=== PATIENT | female | born 1995 | race Two or more races ===

== ENCOUNTER 2020-11-01 09:59 | Outpatient (REF) | payer OTHER, SELFPAY ==
[2020-11-01 11:42] LABS: Hematocrit 31.6 % (37-47); Hemoglobin 8.6 g/dl (12.0-16.0)
[2020-11-01 11:47] LABS: D Dimer < 200 NG/ML
[2020-11-01 12:16] LABS: Ferritin 1 ng/mL (10-122); TSH reflex Free T4 15.27 uIU/mL (0.32-4.0)
[2020-11-01 12:22] LABS: B Type Natriuretic Peptide < 10 pg/mL (<100); Iron 19 mcg/dL (30-160); Percent Iron Saturation 5 % (15-50); Total Iron Binding Capacity 411 mcg/dL (228-428); Unsaturated Iron Binding 392 ug/dL
[2020-11-01 12:52] LABS: Vitamin B12 475 pg/mL (200-900)
[2020-11-01 13:00] LABS: Free T4 (Free Thyroxine) 0.65 ng/dL (0.71-1.85)
== END 2020-11-01 10:00 | disposition home or self-care (01) ==
LOC: HO.HMGCLDS 09:59
PROVIDERS: PCP Internal Medicine; Visit Provider Nurse Practitioner Family
DX: D50.9 Iron deficiency anemia, unspecified (principal); D64.9 Anemia, unspecified; R22.43 Localized swelling, mass and lump, lower limb, bilateral
CPT/HCPCS: 36415; 82607; 82728; 82746; 83540; 83880; 84439; 84443; 85014; 85018; 85379

== ENCOUNTER → 2020-12-09 13:35 | Outpatient (BNV) | payer OTHER, SELFPAY | PROVIDERS: PCP Internal Medicine; Visit Provider Internal Medicine | DX: D50.0 Iron deficiency anemia secondary to blood loss (chronic) (principal); N92.0 Excessive and frequent menstruation with regular cycle | CPT/HCPCS: 99203; 99213; 99214 ==

== ENCOUNTER 2020-12-27 08:04 | Outpatient (REF) | payer OTHER, SELFPAY | END 2020-12-27 08:05 | disposition home or self-care (01) | LOC: HO.MDS 08:04 | PROVIDERS: PCP Internal Medicine; Visit Provider Internal Medicine | DX: D50.9 Iron deficiency anemia, unspecified (principal) | CPT/HCPCS: 96365; 96366; J1200; J1750; Q0163 ==

== ENCOUNTER 2021-02-11 12:16 | Outpatient (REF) | payer OTHER, SELFPAY ==
[2021-02-11 14:07] LABS: Alanine Aminotransferase 32 U/L (0-31); Albumin Level 4.4 g/dL (3.5-5.0); Alkaline Phosphatase 73 U/L (39-117); Anion Gap 13 (12-20); Aspartate Amino Transferase 25 U/L (5-31); Bilirubin Total 0.2 mg/dL (0.0-1.0); Blood Urea Nitrogen 9 mg/dL (9-16); Calcium 9.8 mg/dL (8.4-10.2); Carbon Dioxide 25 mmol/L (22-29); Chloride 105 mmol/L (96-108); Estimated Glomerular Filt Rate > 60; Glucose Random 106 mg/dL (60-115); Potassium 4.2 mmol/L (3.3-5.1); Sodium 139 mmol/L (135-145); Total Protein 7.7 g/dL (6.5-8.0)
[2021-02-11 15:01] LABS: Free T4 (Free Thyroxine) 0.92 ng/dL (0.71-1.85)
== END 2021-02-11 12:17 | disposition home or self-care (01) ==
LOC: HO.HMGCLDS 12:16
PROVIDERS: PCP Internal Medicine; Visit Provider Internal Medicine
DX: E03.8 Other specified hypothyroidism (principal); E66.01 Morbid (severe) obesity due to excess calories; I10 Essential (primary) hypertension
CPT/HCPCS: 36415; 80053; 84439; 84443

== ENCOUNTER 2021-09-02 10:46 | Outpatient (REF) | payer OTHER, SELFPAY ==
[2021-09-02 11:39] LABS: MANUAL DIFF FLAG NO
[2021-09-02 11:53] LABS: Basophils Percent Auto 0.4 % (0-2); Eosinophils Absolute Auto 0.2 X10*3/uL (0.0-0.4); Eosinophils Percent Auto 2.2 % (0-4); Hematocrit 38.4 % (37.0-47.0); Hemoglobin 11.3 g/dl (12.0-16.0); Imm Gran Abs Auto 0.03 X10*3/uL (0.00-0.03); Imm Gran Pct Auto 0.4 % (0.0-0.4); Lymphocytes Absolute Auto 1.5 X10*3/uL (1.2-4.9); Lymphocytes Percent Auto 22.3 % (20-40); Mean Corpuscular HGB Conc 29.4 g/dl (31.0-35.0); Mean Corpuscular Hemoglobin 22.9 pg (27.0-33.0); Mean Corpuscular Volume 77.7 fL (80.0-98.0); Mean Platelet Volume 9.9 fL (9.4-12.3); Monocytes Absolute Auto 0.5 X10*3/uL (0.1-1.2); Monocytes Percent Auto 7.1 % (2-11); Neutrophils Absolute Auto 4.5 x10*3/uL (2.0-8.3); Neutrophils Percent Auto 67.6 % (45-73); Platelet Count 346 X10*3/uL (160-400); Red Blood Count 4.94 X10*6/uL (4.20-5.50); Red Cell Distribution Width 14.5 % (11.0-16.0); White Blood Count 6.7 X10*3/uL (4.8-10.8)
[2021-09-02 12:36] LABS: Alanine Aminotransferase 31 U/L (0-31); Albumin Level 4.2 g/dL (3.5-5.0); Alkaline Phosphatase 74 U/L (39-117); Anion Gap 13 (12-20); Aspartate Amino Transferase 27 U/L (5-31); Bilirubin Total 0.5 mg/dL (0.0-1.0); Blood Urea Nitrogen 9 mg/dL (9-16); Calcium 9.7 mg/dL (8.4-10.2); Carbon Dioxide 26 mmol/L (22-29); Chloride 102 mmol/L (96-108); Estimated Glomerular Filt Rate > 60; Glucose Random 105 mg/dL (60-115); Potassium 4.2 mmol/L (3.3-5.1); Sodium 137 mmol/L (135-145); Total Protein 7.5 g/dL (6.5-8.0)
[2021-09-02 12:59] LABS: Ferritin 16 ng/mL (10-122); TSH reflex Free T4 19.18 uIU/mL (0.32-4.0)
[2021-09-02 13:33] LABS: Free T4 (Free Thyroxine) 0.67 ng/dL (0.71-1.85)
[2021-09-03 09:21] LABS: Thyroglobulin Antibodies <1 IU/mL (< or = 1)
== END 2021-09-02 10:47 | disposition home or self-care (01) ==
LOC: HO.HMGCLDS 10:46
PROVIDERS: PCP Internal Medicine; Visit Provider Internal Medicine
DX: I10 Essential (primary) hypertension (principal); D50.9 Iron deficiency anemia, unspecified; E03.8 Other specified hypothyroidism; E66.01 Morbid (severe) obesity due to excess calories; F33.9 Major depressive disorder, recurrent, unspecified
CPT/HCPCS: 36415; 80053; 82728; 84439; 84443; 85025; 86800

== ENCOUNTER → 2021-10-22 09:51 | Outpatient (BNVA) | payer OTHER, SELFPAY | PROVIDERS: PCP Internal Medicine; Referring Provider Internal Medicine; Visit Provider Physician Assistant | DX: E66.01 Morbid (severe) obesity due to excess calories (principal); E03.9 Hypothyroidism, unspecified; I10 Essential (primary) hypertension; Z68.43 Body mass index [BMI] 50.0-59.9, adult | CPT/HCPCS: 99202 ==

== ENCOUNTER → 2021-10-23 08:41 | Outpatient (BNVA) | payer OTHER, SELFPAY | PROVIDERS: PCP Internal Medicine; Visit Provider Counselor Mental Health | DX: Z13.89 Encounter for screening for other disorder (principal) ==

== ENCOUNTER → 2021-11-18 09:00 | Outpatient (BNVA) | payer OTHER, SELFPAY | PROVIDERS: PCP Internal Medicine; Visit Provider Counselor Mental Health | DX: F50.81 Binge eating disorder (principal); E66.01 Morbid (severe) obesity due to excess calories | CPT/HCPCS: 90791 ==

== ENCOUNTER 2022-09-29 11:25 | Outpatient (REF) | payer OTHER, SELFPAY ==
[2022-09-29 14:12] LABS: MANUAL DIFF FLAG NO
[2022-09-29 14:22] LABS: Basophils Percent Auto 0.5 % (0-2); Eosinophils Absolute Auto 0.2 X10*3/uL (0.0-0.4); Hematocrit 33.8 % (37.0-47.0); Hemoglobin 9.2 g/dl (12.0-16.0); Imm Gran Abs Auto 0.03 X10*3/uL (0.00-0.03); Imm Gran Pct Auto 0.4 % (0.0-0.4); Lymphocytes Percent Auto 27.2 % (20-40); Mean Corpuscular HGB Conc 27.2 g/dl (31.0-35.0); Mean Corpuscular Hemoglobin 18.7 pg (27.0-33.0); Mean Corpuscular Volume 68.8 fL (80.0-98.0); Mean Platelet Volume 10.1 fL (9.4-12.3); Monocytes Absolute Auto 0.4 X10*3/uL (0.1-1.2); Monocytes Percent Auto 5.7 % (2-11); Neutrophils Absolute Auto 4.7 x10*3/uL (2.0-8.3); Neutrophils Percent Auto 64.2 % (45-73); Platelet Count 531 X10*3/uL (160-400); Red Blood Count 4.91 X10*6/uL (4.20-5.50); Red Cell Distribution Width 17.1 % (11.0-16.0); White Blood Count 7.4 X10*3/uL (4.8-10.8)
[2022-09-29 15:02] LABS: Estimated Average Glucose 123 mg/dL; Hemoglobin A1C 105.5181 umol/L; Hemoglobin A1c % 5.9 %
[2022-09-29 16:19] LABS: Alanine Aminotransferase 29 U/L (0-31); Albumin Level 4.4 g/dL (3.5-5.0); Alkaline Phosphatase 81 U/L (39-117); Anion Gap 11 (12-20); Aspartate Amino Transferase 27 U/L (5-31); Bilirubin Total 0.5 mg/dL (0.0-1.0); Blood Urea Nitrogen 9 mg/dL (9-16); Calcium 9.4 mg/dL (8.4-10.2); Carbon Dioxide 27 mmol/L (22-29); Chloride 106 mmol/L (96-108); Estimated Glomerular Filt Rate > 60; Glucose Random 83 mg/dL (60-115); Sodium 140 mmol/L (135-145); Total Protein 7.5 g/dL (6.5-8.0)
[2022-09-29 16:35] LABS: TSH reflex Free T4 18.95 uIU/mL (0.32-4.0)
[2022-10-01 03:29] LABS: LDL Cholesterol Direct 115 mg/dL (<100)
== END 2022-09-29 11:26 | disposition home or self-care (01) ==
LOC: HO.HMGCLDS 11:25
PROVIDERS: PCP Internal Medicine; Visit Provider Internal Medicine
DX: O24.419 Gestational diabetes mellitus in pregnancy, unspecified control (principal); D50.9 Iron deficiency anemia, unspecified; E03.8 Other specified hypothyroidism; E66.01 Morbid (severe) obesity due to excess calories; F50.81 Binge eating disorder; G47.9 Sleep disorder, unspecified; I10 Essential (primary) hypertension
CPT/HCPCS: 36415; 80053; 83036; 83721; 84439; 84443; 85025

== ENCOUNTER → 2022-11-03 09:43 | Outpatient (BNVA) | payer OTHER, SELFPAY | PROVIDERS: PCP Internal Medicine; Visit Provider Physician Assistant ==

== ENCOUNTER 2022-11-11 08:58 | Outpatient (REF) | payer OTHER, SELFPAY ==
[2022-11-11 12:30] LABS: TSH reflex Free T4 0.29 uIU/mL (0.32-4.0)
[2022-11-11 13:02] LABS: Free T4 (Free Thyroxine) 1.39 ng/dL (0.71-1.85)
== END 2022-11-11 08:59 | disposition home or self-care (01) ==
LOC: HO.HMGCLDS 08:58
PROVIDERS: PCP Internal Medicine; Visit Provider Internal Medicine
DX: E03.9 Hypothyroidism, unspecified (principal)
CPT/HCPCS: 36415; 84439; 84443

== ENCOUNTER 2022-12-02 14:27 | Outpatient (REF) | payer OTHER, SELFPAY | END 2022-12-02 14:28 | disposition home or self-care (01) | LOC: HO.MDS 14:27 | PROVIDERS: Visit Provider Internal Medicine | DX: D50.9 Iron deficiency anemia, unspecified (principal) | CPT/HCPCS: 96365; J1756 ==

== ENCOUNTER 2022-12-10 14:31 | Outpatient (REF) | payer OTHER, SELFPAY | END 2022-12-10 14:32 | disposition home or self-care (01) | LOC: HO.MDS 14:31 | PROVIDERS: Visit Provider Internal Medicine | DX: D50.9 Iron deficiency anemia, unspecified (principal) | CPT/HCPCS: 96365; J1756 ==

== ENCOUNTER 2022-12-17 14:52 | Outpatient (REF) | payer OTHER, SELFPAY | END 2022-12-17 14:53 | disposition home or self-care (01) | LOC: HO.MDS 14:52 | PROVIDERS: Visit Provider Internal Medicine | DX: D50.9 Iron deficiency anemia, unspecified (principal) | CPT/HCPCS: 96365; J1756 ==

== ENCOUNTER 2022-12-24 14:58 | Outpatient (REF) | payer OTHER, SELFPAY | END 2022-12-24 14:59 | disposition home or self-care (01) | LOC: HO.MDS 14:58 | PROVIDERS: Visit Provider Internal Medicine | DX: D50.9 Iron deficiency anemia, unspecified (principal) | CPT/HCPCS: 96365; J1756 ==

== ENCOUNTER 2022-12-31 14:24 | Outpatient (REF) | payer OTHER, SELFPAY | END 2022-12-31 14:25 | disposition home or self-care (01) | LOC: HO.MDS 14:24 | PROVIDERS: Visit Provider Internal Medicine | DX: D50.9 Iron deficiency anemia, unspecified (principal) | CPT/HCPCS: 96365; J1756 ==

== ENCOUNTER 2023-01-26 12:54 | Outpatient (AMB) | payer OTHER, SELFPAY ==
--- NOTE | 2023-01-26 12:57 | MHC.PC.OV ---
Vital Signs 01/26/23 13:02 Height 5 ft 2 in Weight 269 lb 8 oz BMI 49.3 BP 122/72 Blood Pressure Location Lt brachial Position Sitting Pulse 117 H Pulse Source Pulse Oximeter Pulse Oximetry (%) 98 Oxygen Delivery Method Room Air Intake Visit Reasons: weight check Allergies oxycodone [OXYCODONE] Allergy (Intermediate, Verified 01/26/23 13:03) RASH, hives Medication List - Last Reconciled 01/26/23 by Obdulia Dewtit MD blood pressure kit-extra large As directed cholestyramine (with sugar) 4 gram 4 grams PO DAILY 30 days ferrous sulfate 325 mg PO BID 90 days hydroxyzine HCl 25 mg PO BEDTIME 90 days levothyroxine 175 mcg PO DAILY metoprolol succinate ER 25 mg PO DAILY 90 days omeprazole 20 mg PO DAILY phentermine 37.5 mg PO DAILY 30 days Tobacco use date assessed: 01/26/23 Dental Screening Dental Screen Date: 01/26/23 Did you have a dental visit in the last 12 months?: Yes Did you have a dental problem in the last 6 months where you did not have access to dental care?: No Was dental information given to patient?: No HPI weight check HPI Details Patient is 27-year-old female came in today for her weight loss appointment She is taking phentermine 37.5 mg, patient is tolerating medication no side effects Her weight on last visit 4 weeks ago was And it is 280 lb with BMI of 51.2 It is now 269 lb with BMI of 49.3 Patient will return in 4 weeks for follow-up appointment to [facility] Medical History Hospital discharge follow-up Iron deficiency anemia Low hemoglobin Pelvic pain Surgical History Hx laparoscopic cholecystectomy Hx of section Family History Father Mental health disorder Mother Asthma Mental health disorder Maternal Grandmother Breast cancer Family/Other Colon cancer Brother Asthma Social History Household Members: None Housing: Apartment Alcohol intake: current Alcohol intake frequency: a few times a month Patient Tobacco Use Status: Never used Tobacco e-Cigarette/Vaping Use: Never Used service: No Current occupational status: unemployed Cognitive needs: No Hearing needs: No Vision needs: Yes Questionnaire PHQ-9 Over the last 2 weeks, how often have you been bothered by any of the following problems? 1. Little interest or pleasure in doing things: several days 2. Feeling down, depressed, or hopeless: not at all 3. Trouble falling or staying asleep, or sleeping too much: more than half the days 4. Feeling tired or having little energy: several days 5. Poor appetite or overeating: several days 6. Feeling bad about yourself - or that you are a failure or have let yourself or your family down: not at all 7. Trouble concentrating on things, such as reading the newspaper or watching television: more than half the days 8. Moving or speaking so slowly that other people could have noticed. Or the opposite - being so fidgety or restless that you have been moving around a lot more than usual: not at all 9. Thoughts that you would be better off or of hurting yourself in some way: not at all Total score: 7 Depression Screening Interpretation: Negative 14069 - PHQ-9 Billing: Yes Source: Developed by Drs. Christiano Fairbanks, Veronica Chow, Heraclio Palencia and colleagues, with an educational onel from [email or web address]. Thrive Questionnaire Date Thrive assessed: 01/26/23 I am a: Patient What is your living situation today?: I have a steady place to live Within the past 12 months, did the food you bought not last and you didn't have the money to get more?: Never true Within the past 12 months, did you worry whether your food would run out before you got money to buy more?: Never true Do you have trouble paying for medicines?: No Do you have trouble getting transportation to medical appointments?: No Do you have trouble paying your heating and electricity bill?: No Do you have trouble taking care of your child, family member or friend?: No Do you have trouble with day-to-day activities such as bathing, preparing meals, shopping, managing finances, etc.?: No Are you currently unemployed and looking for a job?: Yes Are you interested in more education?: Yes AUDIT C Alcohol Use Questionnaire (AUDIT-C) 1. How often do you have a drink containing alcohol?: Never 3. How often do you have six or more drinks on one occasion?: Never Total Score: 0 Score Reviewed/Action Taken: Yes DG-7 AMB Questionnaire DG-7 Date DG - 7 assessed: 01/26/23 Feeling nervous, anxious, or on edge: 1 = Several days Not being able to stop or control worryin = Several days Worrying too much about different things: 0 = Not at all Trouble relaxin = Several days Being so restless that it is hard to sit still: 0 = Not at all Becoming easily annoyed or irritable: 0 = Not at all Feeling afraid as if something awful might happen: 0 = Not at all Total DG-7 score (0-4 normal; 5-9 mild; 10-14 moderate; 15-21 severe): 3 Source: Developed by Drs. Christiano Fairbanks, Veronica Chow, Heraclio Palencia and colleagues, with an educational onel from [email or web address]. DG-7 Assessment Billing DG-7 Assessment Tool: DG-7 Assessment 57407 Review of Systems Const Denies chills and Denies fever(s) ENT Denies epistaxis and Denies nasal discharge Card Denies chest pain Resp Denies chest congestion, Denies cough and Denies hemoptysis GI Denies diarrhea and Denies nausea Skin/Breast Denies rash Neuro Reports no additional complaints Psych Reports no additional complaints Endo Reports no additional complaints Physical exam (Primary Care) Vital Signs: Last Vital Signs Pulse 117 H 01/26/23 13:02 BP 122/72 01/26/23 13:02 Pulse Ox 98 01/26/23 13:02 Oxygen Delivery Method Room Air 01/26/23 13:02 BMI result Body Mass Index 49.3 Tobacco/Smoking Status: Tobacco use Status Tobacco use date assessed 01/26/23 01/26/23 13:03 Patient Tobacco Use Status Never used Tobacco 01/26/23 12:58 e-Cigarette/Vaping Use Never Used 01/26/23 12:58 PHQ-9: PHQ-9 Score PHQ-9: Total score 7 01/26/23 13:22 Depression Screening Interpretation: Negative Thrive Assessment: Date of Thrive Assessment Date Thrive assessed 01/26/23 01/26/23 13:22 Const General: cooperative, comfortable and no acute distress Orientation/consciousness: patient oriented x3 HENMT Head: Yes normocephalic Eyes General: appearance normal, both eyes and all related structures Neck Neck: Yes supple Resp Effort & Inspection: normal respiratory effort, no cough and no stridor Cardio Rhythm: regular rhythm Heart sounds: S1 normal heart sound present and S2 normal heart sound present Skin General skin exam: turgor normal Neuro General: patient oriented x3, tone normal and moves all extremities Extrem Right lower extremity: no edema Left lower extremity: no edema Assessment and Plan Assessment & Plan (1) Morbid obesity due to excess calories: Code(s): E66.01 - Morbid (severe) obesity due to excess calories Plan Patient is 27-year-old female came in today for her weight loss appointment She is taking phentermine 37.5 mg, patient is tolerating medication no side effects Her weight on last visit 4 weeks ago was And it is 280 lb with BMI of 51.2 It is now 269 lb with BMI of 49.3 Patient will return in 4 weeks for follow-up appointment to Medications: Refilled phentermine must administer 30 minutes before or 1-2 hours after breakfast 37.5 mg PO DAILY 30 caps 0RF 30 days Coding Level of Care Code Est Pt Level 3 (81561) Diagnoses Morbid obesity due to excess calories E66.01 Additional Codes DG-7 Assessment Billing - DG-7 Assessment Tool: DG-7 Assessment 41377 ([id number])
[2023-01-26 13:02] VITALS: BP 122/72; PULSE 117; O2SAT 98; BMI 49.3
== END 2023-01-26 14:01 | disposition home or self-care (01) ==
PROVIDERS: PCP Internal Medicine; Visit Provider Internal Medicine
DX: E66.01 Morbid (severe) obesity due to excess calories (principal); Z68.42 Body mass index [BMI] 45.0-49.9, adult
CPT/HCPCS: 99213

== ENCOUNTER 2023-02-12 12:55 | Outpatient (AMB) | payer OTHER, SELFPAY ==
--- NOTE | 2023-02-12 13:00 | MHC.PC.OV ---
Vital Signs 02/12/23 13:01 Height 5 ft 2 in Weight 267 lb BMI 48.8 BP 104/56 L Blood Pressure Location Rt brachial Position Sitting Pulse 92 Pulse Source Pulse Oximeter Pulse Oximetry (%) 98 Oxygen Delivery Method Room Air Intake Visit Reasons: ED Follow UP ~ Allergic Reaction/ Intake Note: Pt is here today for ER follow up visit.Pt states that her BP medication is causing dizziness and headaches. Allergies oxycodone [OXYCODONE] Allergy (Intermediate, Verified 02/12/23 13:02) RASH, hives Medication List - Last Reconciled 02/12/23 by Obdulia Dewitt MD blood pressure kit-extra large As directed cholestyramine (with sugar) 4 gram 4 grams PO DAILY 30 days ferrous sulfate 325 mg PO BID 90 days hydroxyzine HCl 25 mg PO BEDTIME 90 days levothyroxine 175 mcg PO DAILY metoprolol succinate ER 25 mg PO DAILY 90 days omeprazole 20 mg PO DAILY phentermine 37.5 mg PO DAILY 30 days Tobacco use date assessed: 01/26/23 HPI ED Follow UP ~ Allergic Reaction/ HPI Details Patient is 27-year-old female came in today to have a follow-up after having an allergic reaction and seen in emergency room on 02/05/[address] [facility] eating breakfast when she started having difficulty swallowing patient called EMS and came to emergency room EMS gave patient EpiPen 2 times and 50 mg of Benadryl along with 4 mg of Zofran while transferring her to emergency room On arrival to emergency room patient's physical exam was unremarkable she was hemodynamically stable, her symptoms did not seem to be and high lactic in nature After evaluation patient was discharged home with a script of EpiPen p.r.n. She is back to her baseline and offer no new complaints today She is also due for labs Patient has hypothyroidism knees was yellow in November it is time to repeated again She is also due CBC and metabolic profile. Patient has an appointment for weight management in few days. [facility] Medical History Hospital discharge follow-up Iron deficiency anemia Low hemoglobin Pelvic pain Surgical History Hx laparoscopic cholecystectomy Hx of section Family History Father Mental health disorder Mother Asthma Mental health disorder Maternal Grandmother Breast cancer Family/Other Colon cancer Brother Asthma Social History Household Members: None Housing: Apartment Alcohol intake: current Alcohol intake frequency: a few times a month Patient Tobacco Use Status: Never used Tobacco e-Cigarette/Vaping Use: Never Used service: No Current occupational status: unemployed Cognitive needs: No Hearing needs: No Vision needs: Yes Questionnaire Thrive Questionnaire Date Thrive assessed: 01/26/23 DG-7 AMB Questionnaire DG-7 Date DG - 7 assessed: 01/26/23 Source: Developed by Drs. Christiano Fairbanks, Veronica Chow, Heraclio Palencia and colleagues, with an educational onel from [employer]. Review of Systems Const Denies chills and Denies fever(s) ENT Denies epistaxis and Denies nasal discharge Card Denies chest pain Resp Denies chest congestion, Denies cough and Denies hemoptysis GI Denies diarrhea and Denies nausea Skin/Breast Denies rash Neuro Reports no additional complaints Psych Reports no additional complaints Endo Reports no additional complaints Physical exam (Primary Care) Vital Signs: Last Vital Signs Pulse 92 02/12/23 13:01 BP 104/56 L 02/12/23 13:01 Pulse Ox 98 02/12/23 13:01 Oxygen Delivery Method Room Air 02/12/23 13:01 BMI result Body Mass Index 48.8 Tobacco/Smoking Status: Tobacco use Status Tobacco use date assessed 01/26/23 02/12/23 13:02 Patient Tobacco Use Status Never used Tobacco 02/12/23 13:02 e-Cigarette/Vaping Use Never Used 02/12/23 13:02 Thrive Assessment: Date of Thrive Assessment Date Thrive assessed 01/26/23 02/12/23 13:02 Const General: cooperative, comfortable and no acute distress Orientation/consciousness: patient oriented x3 HENMT Head: Yes normocephalic Eyes General: appearance normal, both eyes and all related structures Neck Neck: Yes supple Resp Effort & Inspection: normal respiratory effort, no cough and no stridor Cardio Rhythm: regular rhythm Heart sounds: S1 normal heart sound present and S2 normal heart sound present Skin General skin exam: turgor normal Neuro General: patient oriented x3, tone normal and moves all extremities Extrem Right lower extremity: no edema Left lower extremity: no edema Assessment and Plan Assessment & Plan (1) Allergic reaction: Code(s): T78.40XA - Allergy, unspecified, initial encounter (2) Morbid obesity due to excess calories: Code(s): E66.01 - Morbid (severe) obesity due to excess calories (3) Other specified hypothyroidism: Code(s): E03.8 - Other specified hypothyroidism (4) Iron deficiency anemia: Code(s): D50.9 - Iron deficiency anemia, unspecified Plan Patient is 27-year-old female came in today to have a follow-up after having an allergic reaction and seen in emergency room on 02/05/2023 Patient was at [facility] eating breakfast when she started having difficulty swallowing patient called EMS and came to emergency room EMS gave patient EpiPen 2 times and 50 mg of Benadryl along with 4 mg of Zofran while transferring her to emergency room On arrival to emergency room patient's physical exam was unremarkable she was hemodynamically stable, her symptoms did not seem to be and high lactic in nature After evaluation patient was discharged home with a script of EpiPen p.r.n. She is back to her baseline and offer no new complaints today She is also due for labs Patient has hypothyroidism knees was yellow in November it is time to repeated again She is also due CBC and metabolic profile. Patient has an appointment for weight management in few days. Orders: Orders Comprehensive Met. Panel Today D50.9 - Iron deficiency anemia, unspecified, E03.8 - Other specified hypothyroidism, E66.01 - Morbid (severe) obesity due to excess calories, F33.9 - Major depressive disorder, recurrent, unspecified, T78.40XA - Allergy, unspecified, initial encounter LDL Cholesterol Direct Today D50.9 - Iron deficiency anemia, unspecified, E03.8 - Other specified hypothyroidism, E66.01 - Morbid (severe) obesity due to excess calories, F33.9 - Major depressive disorder, recurrent, unspecified, T78.40XA - Allergy, unspecified, initial encounter TSH reflex Free T4 Today D50.9 - Iron deficiency anemia, unspecified, E03.8 - Other specified hypothyroidism, E66.01 - Morbid (severe) obesity due to excess calories, F33.9 - Major depressive disorder, recurrent, unspecified, T78.40XA - Allergy, unspecified, initial encounter Complete Blood Count Auto Diff Today D50.9 - Iron deficiency anemia, unspecified, E03.8 - Other specified hypothyroidism, E66.01 - Morbid (severe) obesity due to excess calories, F33.9 - Major depressive disorder, recurrent, unspecified, T78.40XA - Allergy, unspecified, initial encounter Coding Level of Care Code Est Pt Level 4 (05188) Diagnoses Allergic reaction T78.40XA Morbid obesity due to excess calories E66.01 Other specified hypothyroidism E03.8 Iron deficiency anemia D50.9
[2023-02-12 13:01] VITALS: BP 104/56; PULSE 92; O2SAT 98; BMI 48.8
== END 2023-02-12 13:45 | disposition home or self-care (01) ==
PROVIDERS: PCP Internal Medicine; Visit Provider Internal Medicine
DX: T78.40XA Allergy, unspecified, initial encounter (principal); E66.01 Morbid (severe) obesity due to excess calories; E03.8 Other specified hypothyroidism; Z68.42 Body mass index [BMI] 45.0-49.9, adult; D50.9 Iron deficiency anemia, unspecified
CPT/HCPCS: 99214

== ENCOUNTER 2023-02-12 13:21 | Outpatient (REF) | payer OTHER, SELFPAY ==
[2023-02-12 16:41] LABS: MANUAL DIFF FLAG NO
[2023-02-12 16:49] LABS: Basophils Percent Auto 0.5 % (0-2); Eosinophils Absolute Auto 0.1 X10*3/uL (0.0-0.4); Eosinophils Percent Auto 2.1 % (0-4); Hematocrit 40.6 % (37.0-47.0); Imm Gran Abs Auto 0.01 X10*3/uL (0.00-0.03); Imm Gran Pct Auto 0.2 % (0.0-0.4); Lymphocytes Absolute Auto 1.9 X10*3/uL (1.2-4.9); Mean Corpuscular HGB Conc 29.6 g/dl (31.0-35.0); Mean Corpuscular Hemoglobin 23.1 pg (27.0-33.0); Mean Corpuscular Volume 78.2 fL (80.0-98.0); Mean Platelet Volume 10.4 fL (9.4-12.3); Monocytes Absolute Auto 0.4 X10*3/uL (0.1-1.2); Monocytes Percent Auto 6.3 % (2-11); Neutrophils Absolute Auto 3.8 x10*3/uL (2.0-8.3); Neutrophils Percent Auto 60.9 % (45-73); Platelet Count 409 X10*3/uL (160-400); Red Blood Count 5.19 X10*6/uL (4.20-5.50); White Blood Count 6.2 X10*3/uL (4.8-10.8)
[2023-02-12 17:10] LABS: Alanine Aminotransferase 31 U/L (0-31); Albumin Level 4.1 g/dL (3.5-5.0); Alkaline Phosphatase 54 U/L (39-117); Anion Gap 10 (12-20); Aspartate Amino Transferase 23 U/L (5-31); Bilirubin Total 0.3 mg/dL (0.0-1.0); Blood Urea Nitrogen 11 mg/dL (9-16); Calcium 10.2 mg/dL (8.4-10.2); Carbon Dioxide 29 mmol/L (22-29); Chloride 106 mmol/L (96-108); Estimated Glomerular Filt Rate > 60; Glucose Random 81 mg/dL (60-115); Iron 33 mcg/dL (30-160); Percent Iron Saturation 10 % (15-50); Potassium 3.7 mmol/L (3.3-5.1); Sodium 141 mmol/L (135-145); Total Iron Binding Capacity 329 mcg/dL (228-428); Total Protein 7.3 g/dL (6.5-8.0); Unsaturated Iron Binding 296 ug/dL
[2023-02-12 17:26] LABS: Ferritin 14 ng/mL (10-122); TSH reflex Free T4 0.75 uIU/mL (0.32-4.0)
[2023-02-13 16:09] LABS: LDL Cholesterol Direct 111 mg/dL (<100)
== END 2023-02-12 13:22 | disposition home or self-care (01) ==
LOC: HO.HMGCLDS 13:21
PROVIDERS: PCP Internal Medicine; Visit Provider Internal Medicine
DX: D50.9 Iron deficiency anemia, unspecified (principal); E03.8 Other specified hypothyroidism; E66.01 Morbid (severe) obesity due to excess calories; F33.9 Major depressive disorder, recurrent, unspecified; T78.40XA Allergy, unspecified, initial encounter
CPT/HCPCS: 36415; 80053; 82728; 83540; 83721; 84443; 85025

== ENCOUNTER 2023-02-26 12:18 | Outpatient (AMB) | payer OTHER, SELFPAY ==
--- NOTE | 2023-02-26 12:20 | MHC.PC.OV ---
Vital Signs 02/26/23 12:21 Height 5 ft 2 in Weight 266 lb 2 oz BMI 48.7 BP 126/78 Blood Pressure Location Rt brachial Position Sitting Pulse 83 Pulse Source Pulse Oximeter Pulse Oximetry (%) 97 Oxygen Delivery Method Room Air Intake Visit Reasons: weight check Allergies oxycodone [OXYCODONE] Allergy (Intermediate, Verified 02/26/23 12:21) RASH, hives Medication List - Last Reconciled 02/26/23 by Obdulia Dewitt MD blood pressure kit-extra large As directed cholestyramine (with sugar) 4 gram 4 grams PO DAILY 30 days ferrous sulfate 325 mg PO BID 90 days hydroxyzine HCl 25 mg PO BEDTIME 90 days levothyroxine 175 mcg PO DAILY metoprolol succinate ER 25 mg PO DAILY 90 days omeprazole 20 mg PO DAILY phentermine 37.5 mg PO DAILY 30 days Tobacco use date assessed: 02/26/23 Dental Screening Dental Screen Date: 02/26/23 Did you have a dental visit in the last 12 months?: Yes Did you have a dental problem in the last 6 months where you did not have access to dental care?: No Was dental information given to patient?: No HPI weight check HPI Details Patient is 27-year-old female came in today for her weight loss visit. Patient is morbidly obese with BMI of 48.7 she is currently taking phentermine 37.5 mg Patient is suffering from constipation she usually takes stool softener that helps but it is not helping anymore. I have sent senna S tablet for the patient she may take 1 or 2 as needed also instructed patient to push fluids. Her weight 266 lb today she has lost 3 lb over 1 month. Patient says that it was 262 before she got constipated. Follow-up 1 month [facility] Medical History Hospital discharge follow-up Iron deficiency anemia Low hemoglobin Pelvic pain Surgical History Hx laparoscopic cholecystectomy Hx of section Family History Father Mental health disorder Mother Asthma Mental health disorder Maternal Grandmother Breast cancer Family/Other Colon cancer Brother Asthma Social History Household Members: None Housing: Apartment Alcohol intake: current Alcohol intake frequency: a few times a month Patient Tobacco Use Status: Never used Tobacco e-Cigarette/Vaping Use: Never Used service: No Current occupational status: unemployed Cognitive needs: No Hearing needs: No Vision needs: Yes Questionnaire PHQ-9 Over the last 2 weeks, how often have you been bothered by any of the following problems? 1. Little interest or pleasure in doing things: several days 2. Feeling down, depressed, or hopeless: not at all 3. Trouble falling or staying asleep, or sleeping too much: several days 4. Feeling tired or having little energy: several days 5. Poor appetite or overeating: several days 6. Feeling bad about yourself - or that you are a failure or have let yourself or your family down: not at all 7. Trouble concentrating on things, such as reading the newspaper or watching television: several days 8. Moving or speaking so slowly that other people could have noticed. Or the opposite - being so fidgety or restless that you have been moving around a lot more than usual: several days 9. Thoughts that you would be better off or of hurting yourself in some way: not at all Total score: 6 Depression Screening Interpretation: Negative 79155 - PHQ-9 Billing: Yes Source: Developed by Drs. Christiano Fairbanks, Veronica Chow, Heraclio Palencia and colleagues, with an educational onel from [employer]. Thrive Questionnaire Date Thrive assessed: 02/26/23 I am a: Patient What is your living situation today?: I have a steady place to live Within the past 12 months, did the food you bought not last and you didn't have the money to get more?: Never true Within the past 12 months, did you worry whether your food would run out before you got money to buy more?: Never true Do you have trouble paying for medicines?: No Do you have trouble getting transportation to medical appointments?: No Do you have trouble paying your heating and electricity bill?: No Do you have trouble taking care of your child, family member or friend?: No Do you have trouble with day-to-day activities such as bathing, preparing meals, shopping, managing finances, etc.?: No Are you currently unemployed and looking for a job?: Yes Are you interested in more education?: Yes AUDIT C Alcohol Use Questionnaire (AUDIT-C) 1. How often do you have a drink containing alcohol?: Never 3. How often do you have six or more drinks on one occasion?: Never Total Score: 0 Score Reviewed/Action Taken: Yes DG-7 AMB Questionnaire DG-7 Date DG - 7 assessed: 02/26/23 Feeling nervous, anxious, or on edge: 0 = Not at all Not being able to stop or control worryin = Not at all Worrying too much about different things: 0 = Not at all Trouble relaxin = Not at all Being so restless that it is hard to sit still: 0 = Not at all Becoming easily annoyed or irritable: 0 = Not at all Feeling afraid as if something awful might happen: 0 = Not at all Total DG-7 score (0-4 normal; 5-9 mild; 10-14 moderate; 15-21 severe): 0 Source: Developed by Drs. Christiano Fairbanks, Veronica Chow, Heraclio Palencia and colleagues, with an educational onel from [employer]. DG-7 Assessment Billing DG-7 Assessment Tool: DG-7 Assessment 45160 Review of Systems Const Denies chills and Denies fever(s) ENT Denies epistaxis and Denies nasal discharge Card Denies chest pain Resp Denies chest congestion, Denies cough and Denies hemoptysis GI Denies diarrhea and Denies nausea Skin/Breast Denies rash Neuro Reports no additional complaints Psych Reports no additional complaints Endo Reports no additional complaints Physical exam (Primary Care) Vital Signs: Last Vital Signs Pulse 83 02/26/23 12:21 BP 126/78 02/26/23 12:21 Pulse Ox 97 02/26/23 12:21 Oxygen Delivery Method Room Air 02/26/23 12:21 BMI result Body Mass Index 48.7 Tobacco/Smoking Status: Tobacco use Status Tobacco use date assessed 02/26/23 02/26/23 12:24 Patient Tobacco Use Status Never used Tobacco 02/26/23 12:24 e-Cigarette/Vaping Use Never Used 02/26/23 12:24 Depression Screening Interpretation: Negative Thrive Assessment: Date of Thrive Assessment Date Thrive assessed 01/26/23 02/26/23 12:24 Const General: cooperative, comfortable and no acute distress Orientation/consciousness: patient oriented x3 HENMT Head: Yes normocephalic Eyes General: appearance normal, both eyes and all related structures Neck Neck: Yes supple Resp Effort & Inspection: normal respiratory effort, no cough and no stridor Cardio Rhythm: regular rhythm Heart sounds: S1 normal heart sound present and S2 normal heart sound present Skin General skin exam: turgor normal Neuro General: patient oriented x3, tone normal and moves all extremities Extrem Right lower extremity: no edema Left lower extremity: no edema Assessment and Plan Assessment & Plan (1) Morbid obesity due to excess calories: Code(s): E66.01 - Morbid (severe) obesity due to excess calories (2) Constipation by delayed colonic transit: Code(s): K59.01 - Slow transit constipation Plan Patient is 27-year-old female came in today for her weight loss visit. Patient is morbidly obese with BMI of 48.7 she is currently taking phentermine 37.5 mg Patient is suffering from constipation she usually takes stool softener that helps but it is not helping anymore. I have sent senna S tablet for the patient she may take 1 or 2 as needed also instructed patient to push fluids. Her weight 266 lb today she has lost 3 lb over 1 month. Patient says that it was 262 before she got constipated. Follow-up 1 month Medications: New sennosides-docusate sodium 8.6-50 mg (Senna Plus) 2 tab-caps (2 x 8.6-50 mg) PO BEDTIME 90 days PRN 180 caps 0RF constipation Refilled phentermine must administer 30 minutes before or 1-2 hours after breakfast 37.5 mg PO DAILY 30 days 30 caps 0RF Coding Level of Care Code Est Pt Level 3 (32834) Diagnoses Morbid obesity due to excess calories E66.01 Constipation by delayed colonic transit K59.01 Additional Codes DG-7 Assessment Billing - DG-7 Assessment Tool: DG-7 Assessment 99379 ([id number])
[2023-02-26 12:21] VITALS: BP 126/78; PULSE 83; O2SAT 97; BMI 48.7
== END 2023-02-26 13:06 | disposition home or self-care (01) ==
PROVIDERS: PCP Internal Medicine; Visit Provider Internal Medicine
DX: K59.01 Slow transit constipation (principal); E66.01 Morbid (severe) obesity due to excess calories; Z68.42 Body mass index [BMI] 45.0-49.9, adult
CPT/HCPCS: 99213

== ENCOUNTER 2023-03-11 08:09 | Outpatient (AMB) | payer OTHER, SELFPAY ==
--- NOTE | 2023-03-11 09:13 | A.OFFPC_ITS ---
Intake Visit Reasons: ED Follow Up~ Allergies oxycodone [OXYCODONE] Allergy (Intermediate, Verified 03/11/23 11:45) RASH, hives Medication List - Last Reconciled 03/11/23 by Obdulia Dewitt MD blood pressure kit-extra large As directed cholestyramine (with sugar) 4 gram 4 grams PO DAILY 30 days ferrous sulfate 325 mg PO BID 90 days hydroxyzine HCl 25 mg PO BEDTIME 90 days levothyroxine 175 mcg PO DAILY metoprolol succinate ER 25 mg PO DAILY 90 days omeprazole 20 mg PO DAILY phentermine 37.5 mg PO DAILY 30 days sennosides-docusate sodium 8.6-50 mg (Senna Plus) 2 tab-caps (2 x 8.6-50 mg) PO BEDTIME PRN 90 days Tobacco use date assessed: 03/11/23 Dental Screening Dental Screen Date: 03/11/23 Did you have a dental visit in the last 12 months?: Yes Did you have a dental problem in the last 6 months where you did not have access to dental care?: No Was dental information given to patient?: Patient has dentist HPI ED Follow Up~ HPI Details Patient is 27-year-old female this is a telemedicine video conference Patient was taking phentermine as a weight loss aid medication, but she has started having side effect after couple of months with chest pressure and anxiety. She went to emergency room her workup was negative We told her to stop the medication she is feeling much better. She is still trying to lose weight by going to the gym and controlling her diet. I am starting her on Topamax 25 mg once a day That might help patient control her appetite better. We will book an of the follow-up appointment in 3 weeks, Topamax does will be increased if she is tolerating at that point. Topamax is mood stabilizer it might help her with anxiety as well. Currently patient is on hydroxyzine 25 mg at night if he start feeling better we will stop hydroxyzine. PFSH Medical History Iron deficiency anemia Low hemoglobin Pelvic pain Hospital discharge follow-up Surgical History Hx of section Hx laparoscopic cholecystectomy Family History Father Mental health disorder Mother Asthma Mental health disorder Maternal Grandmother Breast cancer Family/Other Colon cancer Brother Asthma Social History Household Members: None Housing: Apartment Alcohol intake: current Alcohol intake frequency: a few times a month Patient Tobacco Use Status: Never used Tobacco e-Cigarette/Vaping Use: Never Used service: No Current occupational status: unemployed Cognitive needs: No Hearing needs: No Vision needs: Yes Questionnaire Thrive Questionnaire Date Thrive assessed: 02/26/23 AUDIT C Alcohol Use Questionnaire (AUDIT-C) 1. How often do you have a drink containing alcohol?: Never 3. How often do you have six or more drinks on one occasion?: Never Total Score: 0 Score Reviewed/Action Taken: Yes DG-7 AMB Questionnaire DG-7 Date DG - 7 assessed: 02/26/23 Source: Developed by Drs. Christiano Fairbanks, Veronica Chow, Heraclio Palencia and colleagues, with an educational onel from [employer]. Review of Systems Const Denies chills and Denies fever(s) ENT Denies epistaxis and Denies nasal discharge Card Denies chest pain Resp Denies chest congestion, Denies cough and Denies hemoptysis GI Denies diarrhea and Denies nausea Skin/Breast Denies rash Neuro Reports no additional complaints Psych Reports no additional complaints Endo Reports no additional complaints Physical exam (Primary Care) Tobacco/Smoking Status: Tobacco use Status Tobacco use date assessed 03/11/23 03/11/23 11:46 Patient Tobacco Use Status Never used Tobacco 03/11/23 09:13 e-Cigarette/Vaping Use Never Used 03/11/23 09:13 Thrive Assessment: Date of Thrive Assessment Date Thrive assessed 02/26/23 03/11/23 09:13 Telehealth Telehealth Location of provider rendering services: practice address Location of patient: address on file Patient Identification confirmed using: Name, : Yes Telehealth method: video Patient verbally consented to treatment: Yes Patient verbally consented to billing insurance company: Yes Patient informed of any privacy concerns related to visit: Yes Minutes spent on Phone/Video with Pt.: 14 Assessment and Plan Assessment & Plan (1) Morbid obesity due to excess calories: Code(s): E66.01 - Morbid (severe) obesity due to excess calories Plan Patient is 27-year-old female this is a telemedicine video conference Patient was taking phentermine as a weight loss aid medication, but she has started having side effect after couple of months with chest pressure and anxiety. She went to emergency room her workup was negative We told her to stop the medication she is feeling much better. She is still trying to lose weight by going to the gym and controlling her diet. I am starting her on Topamax 25 mg once a day That might help patient control her appetite better. We will book an of the follow-up appointment in 3 weeks, Topamax does will be increased if she is tolerating at that point. Topamax is mood stabilizer it might help her with anxiety as well. Currently patient is on hydroxyzine 25 mg at night if he start feeling better we will stop hydroxyzine. Medications: New topiramate (Topamax) 25 mg PO DAILY 30 days 30 tabs 0RF Discontinued phentermine must administer 30 minutes before or 1-2 hours after breakfast Discontinued Reason: Doctor's Order 37.5 mg PO DAILY 30 days 30 caps 0RF Coding Level of Care Code Tele Est Pt Level 3 (40249) Diagnoses Morbid obesity due to excess calories E66.01
== END 2023-03-11 16:40 | disposition home or self-care (01) ==
LOC: HO.HMGC 08:09
PROVIDERS: PCP Internal Medicine; Visit Provider Internal Medicine
DX: E66.01 Morbid (severe) obesity due to excess calories (principal)
CPT/HCPCS: 99213

== ENCOUNTER 2023-04-08 08:09 | Outpatient (AMB) | payer OTHER, SELFPAY ==
--- NOTE | 2023-04-08 09:10 | MHC.PC.OV ---
Intake Visit Reasons: 3 Wk Follow Up~ Allergies oxycodone [OXYCODONE] Allergy (Intermediate, Verified 04/08/23 09:11) RASH, hives Medication List - Last Reconciled 04/08/23 by Obdulia Dewitt MD blood pressure kit-extra large As directed cholestyramine (with sugar) 4 gram 4 grams PO DAILY 30 days ferrous sulfate 325 mg PO BID 90 days hydroxyzine HCl 25 mg PO BEDTIME 90 days levothyroxine 175 mcg PO DAILY metoprolol succinate ER 25 mg PO DAILY 90 days omeprazole 20 mg PO DAILY sennosides-docusate sodium 8.6-50 mg (Senna Plus) 2 tab-caps (2 x 8.6-50 mg) PO BEDTIME PRN 90 days topiramate (Topamax) 25 mg PO DAILY 30 days Tobacco use date assessed: 04/08/23 Dental Screening Dental Screen Date: 04/08/23 Did you have a dental visit in the last 12 months?: Yes Did you have a dental problem in the last 6 months where you did not have access to dental care?: No Was dental information given to patient?: Patient has dentist HPI 3 Wk Follow Up~ HPI Details Patient is 27-year-old female this is a telemedicine video conference Patient is morbidly obese, we tried phentermine for weight loss but patient could not tolerate it because of palpitations I sent Topamax for her last visit patient says that she only took 1 tablet there were no side effects but then she forgot to take it. She will try again and if she benefited from the medication she will get back to me. She is also complaining of a lot of dandruff in her here she has tried [id number] shampoos which temp does help but then it comes back. I have sent ketoconazole 2% shampoo for the patient patient was instructed to use the shampoo 2 times a week. [facility] Medical History Iron deficiency anemia Low hemoglobin Pelvic pain Hospital discharge follow-up Surgical History Hx of section Hx laparoscopic cholecystectomy Family History Father Mental health disorder Mother Asthma Mental health disorder Maternal Grandmother Breast cancer Family/Other Colon cancer Brother Asthma Social History Household Members: None Housing: Apartment Alcohol intake: current Alcohol intake frequency: a few times a month Patient Tobacco Use Status: Never used Tobacco e-Cigarette/Vaping Use: Never Used service: No Current occupational status: unemployed Cognitive needs: No Hearing needs: No Vision needs: Yes Questionnaire PHQ-9 Over the last 2 weeks, how often have you been bothered by any of the following problems? 1. Little interest or pleasure in doing things: several days 2. Feeling down, depressed, or hopeless: not at all 3. Trouble falling or staying asleep, or sleeping too much: nearly every day 4. Feeling tired or having little energy: more than half the days 5. Poor appetite or overeating: more than half the days 6. Feeling bad about yourself - or that you are a failure or have let yourself or your family down: several days 7. Trouble concentrating on things, such as reading the newspaper or watching television: nearly every day 8. Moving or speaking so slowly that other people could have noticed. Or the opposite - being so fidgety or restless that you have been moving around a lot more than usual: not at all 9. Thoughts that you would be better off or of hurting yourself in some way: not at all Total score: 12 Depression Screening Interpretation: Positive Depression Screening Follow-up: Existing condition and In treatment Depression Screening Done: Yes 56123 - PHQ-9 Billing: Yes Source: Developed by Drs. Christiano Fairbanks, Heraclio Willis and colleagues, with an educational onel from [employer]. Thrive Questionnaire Date Thrive assessed: 02/26/23 AUDIT C Alcohol Use Questionnaire (AUDIT-C) 1. How often do you have a drink containing alcohol?: Never 3. How often do you have six or more drinks on one occasion?: Never Total Score: 0 Score Reviewed/Action Taken: Yes DG-7 AMB Questionnaire DG-7 Date DG - 7 assessed: 02/26/23 Source: Developed by Drs. Christiano Fairbanks, Heraclio Willis and colleagues, with an educational onel from [employer]. Review of Systems Const Denies chills and Denies fever(s) ENT Denies epistaxis and Denies nasal discharge Card Denies chest pain Resp Denies chest congestion, Denies cough and Denies hemoptysis GI Denies diarrhea and Denies nausea Skin/Breast Denies rash Neuro Reports no additional complaints Psych Reports no additional complaints Endo Reports no additional complaints Physical exam (Primary Care) Tobacco/Smoking Status: Tobacco use Status Tobacco use date assessed 04/08/23 04/08/23 09:11 Patient Tobacco Use Status Never used Tobacco 04/08/23 09:11 e-Cigarette/Vaping Use Never Used 04/08/23 09:11 PHQ-9: PHQ-9 Score PHQ-9: Total score 12 04/08/23 10:06 Depression Screening Interpretation: Positive Depression Screening Follow-up: Existing condition and In treatment Thrive Assessment: Date of Thrive Assessment Date Thrive assessed 02/26/23 04/08/23 09:11 Telehealth Telehealth Location of provider rendering services: practice address Location of patient: address on file Patient Identification confirmed using: Name, : Yes Telehealth method: video Patient verbally consented to treatment: Yes Patient verbally consented to billing insurance company: Yes Patient informed of any privacy concerns related to visit: Yes Minutes spent on Phone/Video with Pt.: 13 Assessment and Plan Assessment & Plan (1) Morbid obesity due to excess calories: Code(s): E66.01 - Morbid (severe) obesity due to excess calories (2) Seborrhea capitis: Code(s): L21.0 - Seborrhea capitis Plan Patient is 27-year-old female this is a telemedicine video conference Patient is morbidly obese, we tried phentermine for weight loss but patient could not tolerate it because of palpitations I sent Topamax for her last visit patient says that she only took 1 tablet there were no side effects but then she forgot to take it. She will try again and if she benefited from the medication she will get back to me. She is also complaining of a lot of dandruff in her here she has tried [id number] shampoos which temp does help but then it comes back. I have sent ketoconazole 2% shampoo for the patient patient was instructed to use the shampoo 2 times a week. Medications: New ketoconazole 2% 1 appl topical 2XW 120 mL 2RF 30 days Coding Level of Care Code Tele Est Pt Level 3 (38584) Diagnoses Morbid obesity due to excess calories E66.01 Seborrhea capitis L21.0
== END 2023-04-08 12:32 | disposition home or self-care (01) ==
LOC: HO.HMGC 08:09
PROVIDERS: PCP Internal Medicine; Visit Provider Internal Medicine
DX: E66.01 Morbid (severe) obesity due to excess calories (principal); L21.9 Seborrheic dermatitis, unspecified
CPT/HCPCS: 99213

== ENCOUNTER 2023-05-04 10:43 | Outpatient (REF) | payer OTHER, SELFPAY | END 2023-05-04 10:44 | disposition home or self-care (01) | LOC: HO.MDS 10:43 | PROVIDERS: Visit Provider Internal Medicine | DX: D50.8 Other iron deficiency anemias (principal) | CPT/HCPCS: 96365; J1756 ==

== ENCOUNTER 2023-05-12 09:48 | Outpatient (REF) | payer OTHER, SELFPAY | END 2023-05-12 09:49 | disposition home or self-care (01) | LOC: HO.MDS 09:48 | PROVIDERS: Visit Provider Internal Medicine | DX: D50.8 Other iron deficiency anemias (principal) | CPT/HCPCS: 96365; J1756 ==

== ENCOUNTER 2023-06-15 11:47 | Outpatient (REF) | payer OTHER, SELFPAY | END 2023-06-15 11:48 | disposition home or self-care (01) | LOC: HO.MDS 11:47 | PROVIDERS: Visit Provider Internal Medicine | DX: D50.8 Other iron deficiency anemias (principal) | CPT/HCPCS: 96365; J1756 ==

== ENCOUNTER 2023-09-30 08:28 | Outpatient (AMB) | payer OTHER, SELFPAY ==
--- NOTE | 2023-09-30 08:32 | A.OFFPC_ITS ---
Vital Signs 09/30/23 08:32 Height 5 ft 2 in Intake Visit Reasons: Med Refill ~ Allergies oxycodone [OXYCODONE] Allergy (Intermediate, Verified 09/30/23 08:33) RASH, hives phentermine [From Fastin (phentermine)] Adverse Reaction (Severe, Verified 09/30/23 09:20) Chest Pain Medication List - Last Reconciled 09/30/23 by Obdulia Dewitt MD blood pressure kit-extra large As directed cholestyramine (with sugar) 4 gram 4 grams PO DAILY 30 days ferrous sulfate 325 mg PO BID 90 days hydroxyzine HCl 25 mg PO BEDTIME 90 days ketoconazole 2% 1 appl topical 2XW 30 days levothyroxine 175 mcg PO DAILY metoprolol succinate ER 25 mg PO DAILY 90 days omeprazole 20 mg PO DAILY sennosides-docusate sodium 8.6-50 mg (Senna Plus) 2 tab-caps (2 x 8.6-50 mg) PO BEDTIME PRN 90 days topiramate (Topamax) 25 mg PO DAILY 30 days Tobacco use date assessed: 09/30/23 Dental Screening Dental Screen Date: 09/30/23 Did you have a dental visit in the last 12 months?: Yes Did you have a dental problem in the last 6 months where you did not have access to dental care?: No Was dental information given to patient?: Patient has dentist HPI Med Refill ~ HPI Details Patient is a 28-year-old female, this is a telemedicine video conference follow-up She has tried phentermine and Topamax for weight loss and was initially successful until she started having side effects of chest pain. Since then she has gained weight again, she is now 267 lb, patient is requesting help with weight loss, I have place referral to metabolic clinic. Meanwhile I have also sent ago we injection to see if her insurance approves it. Once patient pick it up she will call us for nursing visit so we can teach her how to administer. Blood pressure is stable she is taking all her medications it is ranging around 120-130 systolic at home. She is also on omeprazole for GERD symptoms and is doing well she is taking medication as needed Hypothyroidism: Continue levothyroxine 175 mcg She is taking hydroxyzine at night to sleep as needed Patient also have iron deficiency anemia due to heavy menstrual cycle, she is on iron supplement 2 times a day which is also causing constipation for that she is taking senna S every 3 or 4 days. She is due for labs, order placed patient notified. Follow-up 3 months. [facility] Medical History Iron deficiency anemia Low hemoglobin Pelvic pain Hospital discharge follow-up Surgical History Hx of section Hx laparoscopic cholecystectomy Family History Father Mental health disorder Mother Asthma Mental health disorder Maternal Grandmother Breast cancer Family/Other Colon cancer Brother Asthma Social History Household Members: None Housing: Apartment Alcohol intake: current Alcohol intake frequency: a few times a month Patient Tobacco Use Status: Never used Tobacco e-Cigarette/Vaping Use: Never Used service: No Current occupational status: unemployed Cognitive needs: No Hearing needs: No Vision needs: Yes Questionnaire Thrive Questionnaire Date Thrive assessed: 02/26/23 DG-7 AMB Questionnaire DG-7 Date DG - 7 assessed: 02/26/23 Source: Developed by Drs. Christiano Fairbanks, Veronica Chow, Heraclio Palencia and colleagues, with an educational onel from [employer]. Review of Systems Const Denies chills and Denies fever(s) ENT Denies epistaxis and Denies nasal discharge Card Denies chest pain Resp Denies chest congestion, Denies cough and Denies hemoptysis GI Denies diarrhea and Denies nausea Skin/Breast Denies rash Neuro Reports no additional complaints Psych Reports no additional complaints Endo Reports no additional complaints Physical exam (Primary Care) Tobacco/Smoking Status: Tobacco use Status Tobacco use date assessed 09/30/23 09/30/23 08:33 Patient Tobacco Use Status Never used Tobacco 09/30/23 08:33 e-Cigarette/Vaping Use Never Used 09/30/23 08:33 Thrive Assessment: Date of Thrive Assessment Date Thrive assessed 02/26/23 09/30/23 08:33 Telehealth Telehealth Location of provider rendering services: practice address Location of patient: address on file Patient Identification confirmed using: Name, : Yes Telehealth method: video Patient verbally consented to treatment: Yes Patient verbally consented to billing insurance company: Yes Patient informed of any privacy concerns related to visit: Yes Assessment and Plan Assessment & Plan (1) Iron deficiency anemia: Code(s): D50.9 - Iron deficiency anemia, unspecified Qualifiers: Iron deficiency anemia type: chronic blood loss Qualified Code(s): D50.0 - Iron deficiency anemia secondary to blood loss (chronic) (2) Other specified hypothyroidism: Code(s): E03.8 - Other specified hypothyroidism (3) Morbid obesity due to excess calories: Code(s): E66.01 - Morbid (severe) obesity due to excess calories (4) Major depression, recurrent: Code(s): F33.9 - Major depressive disorder, recurrent, unspecified Qualifiers: Active/Remission status: in partial remission Qualified Code(s): F33.41 - Major depressive disorder, recurrent, in partial remission (5) Hypertension, essential: Code(s): I10 - Essential (primary) hypertension (6) Constipation by delayed colonic transit: Code(s): K59.01 - Slow transit constipation (7) Heavy menses: Code(s): N92.0 - Excessive and frequent menstruation with regular cycle Qualifiers: Menorrhagia type: with regular cycle Qualified Code(s): N92.0 - Excessive and frequent menstruation with regular cycle (8) Binge-eating disorder, moderate: Code(s): F50.81 - Binge eating disorder Plan Patient is a 28-year-old female, this is a telemedicine video conference follow-up She has tried phentermine and Topamax for weight loss and was initially successful until she started having side effects of chest pain. Since then she has gained weight again, she is now 267 lb, patient is requesting help with weight loss, I have place referral to metabolic clinic. Meanwhile I have also sent ago we injection to see if her insurance approves it. Once patient pick it up she will call us for nursing visit so we can teach her how to administer. Blood pressure is stable she is taking all her medications it is ranging around 120-130 systolic at home. She is also on omeprazole for GERD symptoms and is doing well she is taking medication as needed Hypothyroidism: Continue levothyroxine 175 mcg She is taking hydroxyzine at night to sleep as needed Patient also have iron deficiency anemia due to heavy menstrual cycle, she is on iron supplement 2 times a day which is also causing constipation for that she is taking senna S every 3 or 4 days. She is due for labs, order placed patient notified. Follow-up 3 months. Orders: Orders Ferritin Today D50.9 - Iron deficiency anemia, unspecified, E03.8 - Other specified hypothyroidism, E66.01 - Morbid (severe) obesity due to excess calories, F33.9 - Major depressive disorder, recurrent, unspecified, I10 - Essential (primary) hypertension, K59.01 - Slow transit constipation Comprehensive Met. Panel Today D50.9 - Iron deficiency anemia, unspecified, E03.8 - Other specified hypothyroidism, E66.01 - Morbid (severe) obesity due to excess calories, F33.9 - Major depressive disorder, recurrent, unspecified, I10 - Essential (primary) hypertension, K59.01 - Slow transit constipation TSH reflex Free T4 Today D50.9 - Iron deficiency anemia, unspecified, E03.8 - Other specified hypothyroidism, E66.01 - Morbid (severe) obesity due to excess calories, F33.9 - Major depressive disorder, recurrent, unspecified, I10 - Essential (primary) hypertension, K59.01 - Slow transit constipation Vitamin D 25-OH (D2 and D3) Today D50.9 - Iron deficiency anemia, unspecified, E03.8 - Other specified hypothyroidism, E66.01 - Morbid (severe) obesity due to excess calories, F33.9 - Major depressive disorder, recurrent, unspecified, I10 - Essential (primary) hypertension, K59.01 - Slow transit constipation Complete Blood Count Auto Diff Today D50.9 - Iron deficiency anemia, unspecified, E03.8 - Other specified hypothyroidism, E66.01 - Morbid (severe) obesity due to excess calories, F33.9 - Major depressive disorder, recurrent, unspecified, I10 - Essential (primary) hypertension, K59.01 - Slow transit cons tipation IRON PROFILE Today D50.9 - Iron deficiency anemia, unspecified, E03.8 - Other specified hypothyroidism, E66.01 - Morbid (severe) obesity due to excess calories, F33.9 - Major depressive disorder, recurrent, unspecified, I10 - Essential (primary) hypertension, K59.01 - Slow transit constipation Referrals Metabolic Clinic Referral F33.9 - Major depressive disorder, recurrent, unspecified Medications: New Wegovy (semaglutide (weight loss)) administer weeks 1 through 4 of therapy 0.25 mg (0.5 mL) subcut QWEEK 2.5 mL 2RF 30 days NS Coding Level of Care Code Est Pt Level 4 (40496) Diagnoses Iron deficiency anemia due to chronic blood loss D50.0 Iron deficiency anemia type: chronic blood loss Other specified hypothyroidism E03.8 Morbid obesity due to excess calories E66.01 Recurrent major depressive disorder, in partial remission F33.41 Active/Remission status: in partial remission Hypertension, essential I10 Constipation by delayed colonic transit K59.01 Menorrhagia with regular cycle N92.0 Menorrhagia type: with regular cycle Binge-eating disorder, moderate F50.81 Comment 5 pre visit, 15 with patient, 5 charting, 5 coordination of care
== END 2023-09-30 15:22 | disposition home or self-care (01) ==
PROVIDERS: PCP Internal Medicine; Visit Provider Internal Medicine
DX: D50.0 Iron deficiency anemia secondary to blood loss (chronic) (principal); E66.01 Morbid (severe) obesity due to excess calories; F33.41 Major depressive disorder, recurrent, in partial remission; E03.8 Other specified hypothyroidism; I10 Essential (primary) hypertension; K59.01 Slow transit constipation; N92.0 Excessive and frequent menstruation with regular cycle; F50.81 Binge eating disorder
CPT/HCPCS: 99214

== ENCOUNTER 2023-10-19 09:18 | Outpatient (REF) | payer OTHER, SELFPAY ==
[2023-10-19 10:17] LABS: MANUAL DIFF FLAG NO
[2023-10-19 10:23] LABS: Basophils Percent Auto 0.4 % (0-2); Eosinophils Absolute Auto 0.2 X10*3/uL (0.0-0.4); Eosinophils Percent Auto 2.1 % (0-4); Hematocrit 38.5 % (37.0-47.0); Imm Gran Abs Auto 0.02 X10*3/uL (0.00-0.03); Imm Gran Pct Auto 0.3 % (0.0-0.4); Lymphocytes Percent Auto 28.1 % (20-40); Mean Corpuscular HGB Conc 31.2 g/dl (31.0-35.0); Mean Corpuscular Hemoglobin 24.9 pg (27.0-33.0); Mean Platelet Volume 9.9 fL (9.4-12.3); Monocytes Absolute Auto 0.4 X10*3/uL (0.1-1.2); Monocytes Percent Auto 5.7 % (2-11); Neutrophils Absolute Auto 4.4 x10*3/uL (2.0-8.3); Neutrophils Percent Auto 63.4 % (45-73); Platelet Count 395 X10*3/uL (160-400); Red Blood Count 4.81 X10*6/uL (4.20-5.50); Red Cell Distribution Width 13.4 % (11.0-16.0)
[2023-10-19 11:10] LABS: Alanine Aminotransferase 14 U/L (0-31); Albumin Level 4.3 g/dL (3.5-5.0); Alkaline Phosphatase 69 U/L (39-117); Anion Gap 12 (12-20); Aspartate Amino Transferase 14 U/L (5-31); Bilirubin Total 0.3 mg/dL (0.0-1.0); Blood Urea Nitrogen 12 mg/dL (9-16); Calcium 9.6 mg/dL (8.4-10.2); Carbon Dioxide 26 mmol/L (22-29); Chloride 104 mmol/L (96-108); Estimated Glomerular Filt Rate > 60; Glucose Random 96 mg/dL (60-115); Iron 40 mcg/dL (30-160); Percent Iron Saturation 11 % (15-50); Potassium 3.8 mmol/L (3.3-5.1); Sodium 138 mmol/L (135-145); Total Iron Binding Capacity 352 mcg/dL (228-428); Total Protein 7.9 g/dL (6.5-8.0); Unsaturated Iron Binding 312 ug/dL
[2023-10-19 11:13] LABS: Ferritin 7 ng/mL (10-122); TSH reflex Free T4 6.63 uIU/mL (0.32-4.0)
[2023-10-19 12:08] LABS: Free T4 (Free Thyroxine) 1.06 ng/dL (0.71-1.85)
[2023-10-22 18:39] LABS: Vitamin D 25-OH, D2 <4 ng/mL; Vitamin D 25-OH, D3 11 ng/mL; Vitamin D 25-OH, Total 11 ng/mL (30-100)
== END 2023-10-19 09:19 | disposition home or self-care (01) ==
LOC: HO.HMGCLDS 09:18
PROVIDERS: PCP Internal Medicine; Visit Provider Internal Medicine
DX: D50.9 Iron deficiency anemia, unspecified (principal); E03.8 Other specified hypothyroidism; E66.01 Morbid (severe) obesity due to excess calories; F33.9 Major depressive disorder, recurrent, unspecified; K59.01 Slow transit constipation; I10 Essential (primary) hypertension
CPT/HCPCS: 36415; 80053; 82306; 82728; 83540; 84439; 84443; 85025

== ENCOUNTER 2023-12-30 08:49 | Outpatient (AMB) | payer OTHER, SELFPAY ==
--- NOTE | 2023-12-30 08:51 | MHC.PC.OV ---
Intake Visit Reasons: 3 month follow up Allergies oxycodone [OXYCODONE] Allergy (Intermediate, Verified 12/30/23 08:51) RASH, hives phentermine [From Fastin (phentermine)] Adverse Reaction (Severe, Verified 12/30/23 08:51) Chest Pain Medication List - Last Reconciled 12/30/23 by Obdulia Dewitt MD blood pressure kit-extra large As directed cholestyramine (with sugar) 4 gram 4 grams PO DAILY 30 days ferrous sulfate 325 mg PO BID 90 days hydroxyzine HCl 25 mg PO BEDTIME 90 days ketoconazole 2% 1 appl topical 2XW 30 days levothyroxine 200 mcg PO DAILY metoprolol succinate ER 25 mg PO DAILY 90 days omeprazole 20 mg PO DAILY sennosides-docusate sodium 8.6-50 mg (Senna Plus) 2 tab-caps (2 x 8.6-50 mg) PO BEDTIME PRN 90 days topiramate (Topamax) 25 mg PO DAILY 30 days Wegovy (semaglutide (weight loss)) 0.25 mg (0.5 mL) subcut QWEEK 30 days NS Tobacco use date assessed: 12/30/23 Dental Screening Dental Screen Date: 12/30/23 Did you have a dental visit in the last 12 months?: Yes Did you have a dental problem in the last 6 months where you did not have access to dental care?: No Was dental information given to patient?: Patient has dentist HPI 3 month follow up HPI Details Patient is a 28-year-old female, this is a telemedicine video conference follow-up Patient is complaining of pain right side of her face and shoulder for the past 2 or 3 weeks which responds to NSAIDs But pain then comes back. She will come next week in house so I can examine her for that. She has tried phentermine and Topamax for weight loss and was initially successful until she started having side effects of chest pain. Patient would like to try Wegovy injection, we did send it last time but insurance declined it. I am sending it again we will see if it goes through Blood pressure is stable she is taking all her medications it is ranging around 120-130 systolic at home. She is also on omeprazole for GERD symptoms and is doing well she is taking medication as needed Hypothyroidism: Continue levothyroxine 175 mcg , TSH level was low we adjusted the medication she is due for repeat labs She is taking hydroxyzine at night to sleep as needed Patient also have iron deficiency anemia due to heavy menstrual cycle, she is on iron supplement 2 times a day which is also causing constipation for that she is taking senna S every 3 or 4 days. [facility] Medical History Iron deficiency anemia Low hemoglobin Pelvic pain Hospital discharge follow-up Surgical History Hx of section Hx laparoscopic cholecystectomy Family History Father Mental health disorder Mother Asthma Mental health disorder Maternal Grandmother Breast cancer Family/Other Colon cancer Brother Asthma Social History Household Members: None Housing: Apartment Alcohol intake: current Alcohol intake frequency: a few times a month Patient Tobacco Use Status: Never used Tobacco e-Cigarette/Vaping Use: Never Used service: No Current occupational status: unemployed Cognitive needs: No Hearing needs: No Vision needs: Yes Questionnaire Thrive Questionnaire Date Thrive assessed: 02/26/23 DG-7 AMB Questionnaire DG-7 Date DG - 7 assessed: 02/26/23 Source: Developed by Drs. Christiano Fairbanks, Veronica Chow, Heraclio Palencia and colleagues, with an educational onel from [employer]. Review of Systems Const Denies chills and Denies fever(s) ENT Denies epistaxis and Denies nasal discharge Card Denies chest pain Resp Denies chest congestion, Denies cough and Denies hemoptysis GI Denies diarrhea and Denies nausea Skin/Breast Denies rash Neuro Reports no additional complaints Psych Reports no additional complaints Endo Reports no additional complaints Physical exam (Primary Care) Tobacco/Smoking Status: Tobacco use Status Tobacco use date assessed 12/30/23 12/30/23 08:51 Patient Tobacco Use Status Never used Tobacco 12/30/23 08:51 e-Cigarette/Vaping Use Never Used 12/30/23 08:51 Thrive Assessment: Date of Thrive Assessment Date Thrive assessed 02/26/23 12/30/23 08:51 Telehealth Telehealth Telehealth Platform: [employer] Location of provider rendering services: practice address Location of patient: address on file Patient Identification confirmed using: Name, : Yes Telehealth method: video Patient verbally consented to treatment: Yes Patient verbally consented to billing insurance company: Yes Patient informed of any privacy concerns related to visit: Yes Assessment and Plan Assessment & Plan (1) Total body pain: Code(s): R52 - Pain, unspecified (2) Iron deficiency anemia: Code(s): D50.9 - Iron deficiency anemia, unspecified Qualifiers: Iron deficiency anemia type: chronic blood loss Qualified Code(s): D50.0 - Iron deficiency anemia secondary to blood loss (chronic) (3) Other specified hypothyroidism: Code(s): E03.8 - Other specified hypothyroidism (4) Morbid obesity due to excess calories: Code(s): E66.01 - Morbid (severe) obesity due to excess calories (5) Major depression, recurrent: Code(s): F33.9 - Major depressive disorder, recurrent, unspecified Qualifiers: Active/Remission status: in partial remission Qualified Code(s): F33.41 - Major depressive disorder, recurrent, in partial remission (6) Hypertension, essential: Code(s): I10 - Essential (primary) hypertension (7) Constipation by delayed colonic transit: Code(s): K59.01 - Slow transit constipation (8) Heavy menses: Code(s): N92.0 - Excessive and frequent menstruation with regular cycle Qualifiers: Menorrhagia type: with regular cycle Qualified Code(s): N92.0 - Excessive and frequent menstruation with regular cycle (9) Binge-eating disorder, moderate: Code(s): F50.81 - Binge eating disorder Plan Patient is a 28-year-old female, this is a telemedicine video conference follow-up Patient is complaining of pain right side of her face and shoulder for the past 2 or 3 weeks which responds to NSAIDs But pain then comes back. She will come next week in house so I can examine her for that. She has tried phentermine and Topamax for weight loss and was initially successful until she started having side effects of chest pain. Patient would like to try Wegovy injection, we did send it last time but insurance declined it. I am sending it again we will see if it goes through Blood pressure is stable she is taking all her medications it is ranging around 120-130 systolic at home. She is also on omeprazole for GERD symptoms and is doing well she is taking medication as needed Hypothyroidism: Continue levothyroxine 175 mcg , TSH level was low we adjusted the medication she is due for repeat labs She is taking hydroxyzine at night to sleep as needed Patient also have iron deficiency anemia due to heavy menstrual cycle, she is on iron supplement 2 times a day which is also causing constipation for that she is taking senna S every 3 or 4 days. Total time spent 35 minute including [id number] with the patient, reviewing the chart completing the note and coordination of care Orders: Orders Complete Blood Count Auto Diff Today F33.41 - Major depressive disorder, recurrent, in partial remission, I10 - Essential (primary) hypertension, N92.0 - Excessive and frequent menstruation with regular cycle Ferritin Today F33.41 - Major depressive disorder, recurrent, in partial remission, I10 - Essential (primary) hypertension, N92.0 - Excessive and frequent menstruation with regular cycle Comprehensive Met. Panel Today F3.41 - Major depressive disorder, recurrent, in partial remission, I10 - Essential (primary) hypertension, N92.0 - Excessive and frequent menstruation with regular cycle TSH reflex Free T4 Today F33.41 - Major depressive disorder, recurrent, in partial remission, I10 - Essential (primary) hypertension, N92.0 - Excessive and frequent menstruation with regular cycle Medications: Refilled Wegovy (semaglutide (weight loss)) administer weeks 1 through 4 of therapy 0.25 mg (0.5 mL) subcut QWEEK 2.5 mL 2RF 30 days NS Coding Level of Care Code Tele Est Pt Level 4 (22137) Complex EM visit Add On G2211 Diagnoses Total body pain R52 Iron deficiency anemia due to chronic blood loss D50.0 Iron deficiency anemia type: chronic blood loss Other specified hypothyroidism E03.8 Morbid obesity due to excess calories E66.01 Recurrent major depressive disorder, in partial remission F33.41 Active/Remission status: in partial remission Hypertension, essential I10 Constipation by delayed colonic transit K59.01 Menorrhagia with regular cycle N92.0 Menorrhagia type: with regular cycle Binge-eating disorder, moderate F50.81
== END 2023-12-30 11:28 | disposition home or self-care (01) ==
LOC: HO.HMGC 08:49
PROVIDERS: PCP Internal Medicine; Visit Provider Internal Medicine
DX: R52 Pain, unspecified (principal); E66.01 Morbid (severe) obesity due to excess calories; F33.41 Major depressive disorder, recurrent, in partial remission; D50.0 Iron deficiency anemia secondary to blood loss (chronic); E03.8 Other specified hypothyroidism; I10 Essential (primary) hypertension; K59.01 Slow transit constipation; N92.0 Excessive and frequent menstruation with regular cycle; F50.81 Binge eating disorder
CPT/HCPCS: 99214; G2211

== ENCOUNTER 2024-01-05 13:14 | Outpatient (AMB) | payer OTHER, SELFPAY ==
[2024-01-05 13:17] VITALS: BP 128/70; PULSE 100; O2SAT 99; BMI 49.8
--- NOTE | 2024-01-05 13:17 | MHC.PC.OV ---
Vital Signs 01/05/24 13:17 Height 5 ft 2 in Weight 272 lb 6 oz BMI 49.8 BP 128/70 Blood Pressure Location Rt brachial Position Sitting Pulse 100 Pulse Source Pulse Oximeter Pulse Oximetry (%) 99 Oxygen Delivery Method Room Air Intake Visit Reasons: Follow Up~ Allergies oxycodone [OXYCODONE] Allergy (Intermediate, Verified 01/05/24 13:17) RASH, hives phentermine [From Fastin (phentermine)] Adverse Reaction (Severe, Verified 01/05/24 13:17) Chest Pain Medication List - Last Reconciled 01/05/24 by Obdulia Dewitt MD blood pressure kit-extra large As directed cholestyramine (with sugar) 4 gram 4 grams PO DAILY 30 days ferrous sulfate 325 mg PO BID 90 days hydroxyzine HCl 25 mg PO BEDTIME 90 days ketoconazole 2% 1 appl topical 2XW 30 days levothyroxine 200 mcg PO DAILY metoprolol succinate ER 25 mg PO DAILY 90 days omeprazole 20 mg PO DAILY sennosides-docusate sodium 8.6-50 mg (Senna Plus) 2 tab-caps (2 x 8.6-50 mg) PO BEDTIME PRN 90 days topiramate (Topamax) 25 mg PO DAILY 30 days Wegovy (semaglutide (weight loss)) 0.25 mg (0.5 mL) subcut QWEEK 30 days NS Tobacco use date assessed: 01/05/24 Dental Screening Dental Screen Date: 01/05/24 Did you have a dental visit in the last 12 months?: Yes Did you have a dental problem in the last 6 months where you did not have access to dental care?: No Was dental information given to patient?: Patient has dentist HPI Follow Up~ HPI Details Patient is 28-year-old female who is morbidly obese with BMI of 49.8 Patient is struggling with her weight for very long time. She also suffers from hypertension and depression Depression is partly because of her weight She has started having peripheral vascular problem with ankle swelling off and on She is also complaining of headaches which is mostly on the right side and also right-sided body pain For that I have placed a referral to neurologist That has been happening for the past 2 or 3 weeks There is no neurological deficits We did try to prescribe semaglutide for the patient and we are still trying to get it approved by her insurance She said that the [facility] pharmacy has it in stock, script sent over to [facility] pharmacy HPI Comments History of Present Illness Details This is a longitudinal relationship between me and the patient. Ongoing care provided, patient was provided time to ask questions [facility] Medical History Iron deficiency anemia Low hemoglobin Pelvic pain Hospital discharge follow-up Surgical History Hx of section Hx laparoscopic cholecystectomy Family History Father Mental health disorder Mother Asthma Mental health disorder Maternal Grandmother Breast cancer Family/Other Colon cancer Brother Asthma Social History Household Members: None Housing: Apartment Alcohol intake: current Alcohol intake frequency: a few times a month Patient Tobacco Use Status: Never used Tobacco e-Cigarette/Vaping Use: Never Used service: No Current occupational status: unemployed Cognitive needs: No Hearing needs: No Vision needs: Yes Questionnaire Thrive Questionnaire Date Thrive assessed: 02/26/23 AUDIT C Alcohol Use Questionnaire (AUDIT-C) 1. How often do you have a drink containing alcohol?: Never 3. How often do you have six or more drinks on one occasion?: Never Total Score: 0 Score Reviewed/Action Taken: Yes DG-7 AMB Questionnaire DG-7 Date DG - 7 assessed: 02/26/23 Source: Developed by Drs. Christiano Fairbanks, Veronica Chow, Heraclio Palencia and colleagues, with an educational onel from [employer]. Review of Systems Const Denies chills and Denies fever(s) ENT Denies epistaxis and Denies nasal discharge Card Denies chest pain Resp Denies chest congestion, Denies cough and Denies hemoptysis GI Denies diarrhea and Denies nausea Skin/Breast Denies rash Neuro Reports no additional complaints Psych Reports no additional complaints Endo Reports no additional complaints Physical exam (Primary Care) Vital Signs: Last Vital Signs Pulse 100 01/05/24 13:17 BP 128/70 01/05/24 13:17 Pulse Ox 99 01/05/24 13:17 Oxygen Delivery Method Room Air 07/03/24 13:17 BMI result Body Mass Index 49.8 Tobacco/Smoking Status: Tobacco use Status Tobacco use date assessed 01/05/24 01/05/24 13:22 Patient Tobacco Use Status Never used Tobacco 01/05/24 13:22 e-Cigarette/Vaping Use Never Used 01/05/24 13:22 Thrive Assessment: Date of Thrive Assessment Date Thrive assessed 02/26/23 01/05/24 13:22 Const General: cooperative, comfortable and no acute distress Orientation/consciousness: patient oriented x3 HENMT Head: Yes normocephalic Eyes General: appearance normal, both eyes and all related structures Neck Neck: Yes supple Resp Effort & Inspection: normal respiratory effort, no cough and no stridor Cardio Rhythm: regular rhythm Heart sounds: S1 normal heart sound present and S2 normal heart sound present Skin General skin exam: turgor normal Neuro Other: No neurological deficits General: patient oriented x3, tone normal and moves all extremities Assessment and Plan Assessment & Plan (1) Morbid obesity due to excess calories: Code(s): E66.01 - Morbid (severe) obesity due to excess calories (2) Elevated TSH: Code(s): R79.89 - Other specified abnormal findings of blood chemistry (3) Hemicrania: Code(s): G43.909 - Migraine, unspecified, not intractable, without status migrainosus (4) Iron deficiency anemia: Code(s): D50.9 - Iron deficiency anemia, unspecified Qualifiers: Iron deficiency anemia type: chronic blood loss Qualified Code(s): D50.0 - Iron deficiency anemia secondary to blood loss (chronic) (5) Other specified hypothyroidism: Code(s): E03.8 - Other specified hypothyroidism (6) Major depression, recurrent: Code(s): F33.9 - Major depressive disorder, recurrent, unspecified Qualifiers: Active/Remission status: in partial remission Qualified Code(s): F33.41 - Major depressive disorder, recurrent, in partial remission (7) Hypertension, essential: Code(s): I10 - Essential (primary) hypertension (8) Binge-eating disorder, moderate: Code(s): F50.81 - Binge eating disorder Plan Patient is 28-year-old female who is morbidly obese with BMI of 49.8 Patient is struggling with her weight for very long time. She also suffers from hypertension and depression Depression is partly because of her weight She has started having peripheral vascular problem with ankle swelling off and on She is also complaining of headaches which is mostly on the right side and also right-sided body pain For that I have placed a referral to neurologist That has been happening for the past 2 or 3 weeks There is no neurological deficits We did try to prescribe semaglutide for the patient and we are still trying to get it approved by her insurance She said that the [facility] pharmacy has it in stock, script sent over to [facility] pharmacy Orders: Orders TSH reflex Free T4 Today R79.89 - Other specified abnormal findings of blood chemistry Referrals Neurology Referral G43.909 - Migraine, unspecified, not intractable, without status migrainosus Medications: Refilled Wegovy (semaglutide (weight loss)) administer weeks 1 through 4 of therapy 0.25 mg (0.5 mL) subcut QWEEK 2.5 mL 2RF 30 days NS Coding Level of Care Code Est Pt Level 4 (50048) Complex EM visit Add On G2211 Diagnoses Morbid obesity due to excess calories E66.01 Elevated TSH R79.89 Hemicrania G43.909 Iron deficiency anemia due to chronic blood loss D50.0 Iron deficiency anemia type: chronic blood loss Other specified hypothyroidism E03.8 Recurrent major depressive disorder, in partial remission F33.41 Active/Remission status: in partial remission Hypertension, essential I10 Binge-eating disorder, moderate F50.81
== END 2024-01-05 14:07 | disposition home or self-care (01) ==
PROVIDERS: PCP Internal Medicine; Visit Provider Internal Medicine
DX: G43.909 Migraine, unspecified, not intractable, without status migrainosus (principal); E66.01 Morbid (severe) obesity due to excess calories; F33.41 Major depressive disorder, recurrent, in partial remission; Z68.42 Body mass index [BMI] 45.0-49.9, adult; R79.89 Other specified abnormal findings of blood chemistry; D50.0 Iron deficiency anemia secondary to blood loss (chronic); E03.8 Other specified hypothyroidism; I10 Essential (primary) hypertension; F50.81 Binge eating disorder
CPT/HCPCS: 99214; G2211

== ENCOUNTER 2024-01-05 13:39 | Outpatient (REF) | payer OTHER, SELFPAY ==
[2024-01-05 16:08] LABS: MANUAL DIFF FLAG NO
[2024-01-05 16:10] LABS: Basophils Percent Auto 0.5 % (0-2); Eosinophils Absolute Auto 0.1 X10*3/uL (0.0-0.4); Eosinophils Percent Auto 1.5 % (0-4); Hematocrit 37.3 % (37.0-47.0); Hemoglobin 11.4 g/dl (12.0-16.0); Imm Gran Abs Auto 0.02 X10*3/uL (0.00-0.03); Imm Gran Pct Auto 0.3 % (0.0-0.4); Lymphocytes Absolute Auto 2.5 X10*3/uL (1.2-4.9); Lymphocytes Percent Auto 31.6 % (20-40); Mean Corpuscular HGB Conc 30.6 g/dl (31.0-35.0); Mean Corpuscular Hemoglobin 23.3 pg (27.0-33.0); Mean Corpuscular Volume 76.3 fL (80.0-98.0); Mean Platelet Volume 9.9 fL (9.4-12.3); Monocytes Absolute Auto 0.5 X10*3/uL (0.1-1.2); Monocytes Percent Auto 6.2 % (2-11); Neutrophils Absolute Auto 4.7 x10*3/uL (2.0-8.3); Neutrophils Percent Auto 59.9 % (45-73); Platelet Count 395 X10*3/uL (160-400); Red Blood Count 4.89 X10*6/uL (4.20-5.50); White Blood Count 7.9 X10*3/uL (4.8-10.8)
[2024-01-05 16:34] LABS: Alanine Aminotransferase 12 U/L (0-31); Albumin Level 4.3 g/dL (3.5-5.0); Alkaline Phosphatase 78 U/L (39-117); Anion Gap 11 (12-20); Aspartate Amino Transferase 14 U/L (5-31); Bilirubin Total 0.4 mg/dL (0.0-1.0); Blood Urea Nitrogen 9 mg/dL (9-16); Calcium 9.8 mg/dL (8.4-10.2); Carbon Dioxide 26 mmol/L (22-29); Chloride 105 mmol/L (96-108); Estimated Glomerular Filt Rate > 60; Glucose Random 87 mg/dL (60-115); Potassium 3.9 mmol/L (3.3-5.1); Sodium 138 mmol/L (135-145); Total Protein 7.9 g/dL (6.5-8.0)
[2024-01-05 16:51] LABS: Ferritin 4 ng/mL (10-122); TSH reflex Free T4 5.16 uIU/mL (0.32-4.0)
[2024-01-05 17:48] LABS: Free T4 (Free Thyroxine) 1.04 ng/dL (0.71-1.85)
== END 2024-01-05 13:40 | disposition home or self-care (01) ==
LOC: HO.HMGCLDS 13:39
PROVIDERS: PCP Internal Medicine; Visit Provider Internal Medicine
DX: N92.0 Excessive and frequent menstruation with regular cycle (principal); F33.41 Major depressive disorder, recurrent, in partial remission; I10 Essential (primary) hypertension; R79.89 Other specified abnormal findings of blood chemistry
CPT/HCPCS: 36415; 80053; 82728; 84439; 84443; 85025

== ENCOUNTER 2024-04-20 08:25 | Outpatient (AMB) | payer OTHER, SELFPAY ==
--- NOTE | 2024-04-20 08:28 | A.OFFPC_ITS ---
Intake Visit Reasons: Personal Concerns~[phone] Allergies oxycodone [OXYCODONE] Allergy (Intermediate, Verified 04/20/24 08:28) RASH, hives phentermine [From Fastin (phentermine)] Adverse Reaction (Severe, Verified 04/20/24 08:28) Chest Pain Medication List - Last Reconciled 04/20/24 by Obdulia Dewitt MD blood pressure kit-extra large As directed chlorhexidine gluconate 4% (Hibiclens) 1 appl topical TID PRN 2 doses cholestyramine (with sugar) 4 gram 4 grams PO DAILY 30 days ferrous sulfate 325 mg PO BID 90 days hydroxyzine HCl 25 mg PO BEDTIME 90 days ketoconazole 2% 1 appl topical 2XW 30 days levothyroxine 200 mcg PO DAILY levothyroxine 50 mcg PO DAILY metoprolol succinate ER 25 mg PO DAILY 90 days omeprazole 20 mg PO DAILY sennosides-docusate sodium 8.6-50 mg (Senna Plus) 2 tab-caps (2 x 8.6-50 mg) PO BEDTIME PRN 90 days topiramate (Topamax) 25 mg PO DAILY 30 days Wegovy (semaglutide (weight loss)) 0.25 mg (0.5 mL) subcut QWEEK 30 days NS Tobacco use date assessed: 04/20/24 Dental Screening Dental Screen Date: 04/20/24 Did you have a dental visit in the last 12 months?: Yes Did you have a dental problem in the last 6 months where you did not have access to dental care?: No Was dental information given to patient?: Patient has dentist HPI Personal Concerns~[phone] HPI Details Patient is 28 years old female this is telemed f.u visit Patient is currently taking Levothyroxine 200 mcg her TSH level was off last set of labs thats when we increase the levothyroxine to 200 mcg she is due for level check mean while i have sent the refill for the patient difficulty sleeping : she is taking Hydroxyzine at night and is requesting refill on that as well refill sent has been feeling depressed , she was having therapy in the past but then she stopped she would like to restart that I have sent message to our behavioral health coordinator she will reach out to patient Patient is morbidly obese, semaglutide injections were sent for her but she has not started that yet after the labs we will set up another visit to go over labs and we will talk about that further [facility] Medical History Iron deficiency anemia Low hemoglobin Pelvic pain Hospital discharge follow-up Surgical History Hx of section Hx laparoscopic cholecystectomy Family History Father Mental health disorder Mother Asthma Mental health disorder Maternal Grandmother Breast cancer Family/Other Colon cancer Brother Asthma Social History Household Members: None Housing: Apartment Alcohol intake: current Alcohol intake frequency: a few times a month Patient Tobacco Use Status: Never used Tobacco e-Cigarette/Vaping Use: Never Used service: No Current occupational status: unemployed Cognitive needs: No Hearing needs: No Vision needs: Yes Questionnaire PHQ-9 Over the last 2 weeks, how often have you been bothered by any of the following problems? 1. Little interest or pleasure in doing things: several days 2. Feeling down, depressed, or hopeless: not at all 3. Trouble falling or staying asleep, or sleeping too much: not at all 4. Feeling tired or having little energy: several days 5. Poor appetite or overeating: several days 6. Feeling bad about yourself - or that you are a failure or have let yourself or your family down: not at all 7. Trouble concentrating on things, such as reading the newspaper or watching television: not at all 8. Moving or speaking so slowly that other people could have noticed. Or the opposite - being so fidgety or restless that you have been moving around a lot more than usual: not at all 9. Thoughts that you would be better off or of hurting yourself in some way: not at all Total score: 3 Depression Screening Interpretation: Negative Depression Screening Done: Yes 88833 - PHQ-9 Billing: Yes Source: Developed by Drs. Christiano Fairbanks, Veronica Chow, Heraclio Palencia and colleagues, with an educational onel from [employer]. Thrive Questionnaire Date Thrive assessed: 04/20/24 I am a: Patient What is your living situation today?: I have a steady place to live Within the past 12 months, did the food you bought not last and you didn't have the money to get more?: Never true Within the past 12 months, did you worry whether your food would run out before you got money to buy more?: Never true Do you have trouble paying for medicines?: No Do you have trouble getting transportation to medical appointments?: No Do you have trouble paying your heating and electricity bill?: No Do you have trouble taking care of your child, family member or friend?: No Do you have trouble with day-to-day activities such as bathing, preparing meals, shopping, managing finances, etc.?: No Are you currently unemployed and looking for a job?: No Are you interested in more education?: No Please select the resources that you would like help with: None Currently or been in a relationship where the following occur: No concerns reported THRIVE Score: 0 AUDIT C Alcohol Use Questionnaire (AUDIT-C) 1. How often do you have a drink containing alcohol?: Never 3. How often do you have six or more drinks on one occasion?: Never Total Score: 0 Score Reviewed/Action Taken: Yes DG-7 AMB Questionnaire DG-7 Date DG - 7 assessed: 04/20/24 Feeling nervous, anxious, or on edge: 0 = Not at all Not being able to stop or control worryin = Not at all Worrying too much about different things: 0 = Not at all Trouble relaxin = Not at all Being so restless that it is hard to sit still: 0 = Not at all Becoming easily annoyed or irritable: 0 = Not at all Feeling afraid as if something awful might happen: 0 = Not at all Total DG-7 score (0-4 normal; 5-9 mild; 10-14 moderate; 15-21 severe): 0 Source: Developed by Drs. Christiano Fairbanks, Veronica Chow, Heraclio Palencia and colleagues, with an educational onel from [employer]. DG-7 Assessment Billing DG-7 Assessment Tool: DG-7 Assessment 98847 Review of Systems Const Denies chills and Denies fever(s) ENT Denies epistaxis and Denies nasal discharge Card Denies chest pain Resp Denies chest congestion, Denies cough and Denies hemoptysis GI Denies diarrhea and Denies nausea Skin/Breast Denies rash Neuro Reports no additional complaints Psych Reports no additional complaints Endo Reports no additional complaints Physical exam (Primary Care) Tobacco/Smoking Status: Tobacco use Status Tobacco use date assessed 04/20/24 04/20/24 08:29 Patient Tobacco Use Status Never used Tobacco 04/20/24 08:29 e-Cigarette/Vaping Use Never Used 04/20/24 08:29 PHQ-9: PHQ-9 Score PHQ-9: Total score 3 04/20/24 08:46 Depression Screening Interpretation: Negative Thrive Assessment: Date of Thrive Assessment Date Thrive assessed 04/20/24 04/20/24 08:29 Currently or been in a relationship where the following occur: No concerns reported Telehealth Telehealth Telehealth Platform: [employer] Location of provider rendering services: practice address Location of patient: address on file Patient Identification confirmed using: Name, : Yes Telehealth method: video Patient verbally consented to treatment: Yes Patient verbally consented to billing insurance company: Yes Patient informed of any privacy concerns related to visit: Yes Coding Level of Care Code Tele Est Pt Level 4 (70704) Diagnoses Other specified hypothyroidism E03.8 Morbid obesity due to excess calories E66.01 Recurrent major depressive disorder, in partial remission F33.41 Active/Remission status: in partial remission Difficulty sleeping G47.9 Additional Codes DG-7 Assessment Billing - DG-7 Assessment Tool: DG-7 Assessment 01627 ([id number]) Assessment & Plan Assessment & Plan (1) Other specified hypothyroidism: Code(s): E03.8 - Other specified hypothyroidism Category: Medical (2) Morbid obesity due to excess calories: Code(s): E66.01 - Morbid (severe) obesity due to excess calories Category: Medical (3) Major depression, recurrent: Code(s): F33.9 - Major depressive disorder, recurrent, unspecified Category: Medical Qualifiers: Active/Remission status: in partial remission Qualified Code(s): F33.41 - Major depressive disorder, recurrent, in partial remission (4) Difficulty sleeping: Code(s): G47.9 - Sleep disorder, unspecified Category: Medical Plan Patient is 28 years old female this is telemed f.u visit Patient is currently taking Levothyroxine 200 mcg her TSH level was off last set of labs thats when we increase the levothyroxine to 200 mcg she is due for level check mean while i have sent the refill for the patient difficulty sleeping : she is taking Hydroxyzine at night and is requesting refill on that as well refill sent has been feeling depressed , she was having therapy in the past but then she stopped she would like to restart that I have sent message to our behavioral health coordinator she will reach out to patient Patient is morbidly obese, semaglutide injections were sent for her but she has not started that yet after the labs we will set up another visit to go over labs and we will talk about that further 30 min spent in care of this patient Medications: Refilled levothyroxine 200 mcg PO DAILY 90 tabs 0RF hydroxyzine HCl One or 2 tablets at bedtime 25 mg PO BEDTIME 90 days 90 tabs 0RF Discontinued topiramate (Topamax) Discontinued Reason: No Longer Medically Relevant 25 mg PO DAILY 30 days 30 tabs 0RF levothyroxine Take levothyroxine 200 mcg and 50 mcg together daily Discontinued Reason: Doctor's Order 50 mcg PO DAILY 90 tabs 0RF
== END 2024-04-20 09:50 | disposition home or self-care (01) ==
LOC: HO.HMCC 08:26
PROVIDERS: PCP Internal Medicine; Visit Provider Internal Medicine
DX: E03.8 Other specified hypothyroidism (principal); F33.41 Major depressive disorder, recurrent, in partial remission; G47.9 Sleep disorder, unspecified; E66.813 Obesity, class 3

== ENCOUNTER → 2024-04-20 08:25 | Outpatient (BNVA) | payer OTHER, SELFPAY | PROVIDERS: PCP Internal Medicine; Visit Provider Internal Medicine | DX: E03.8 Other specified hypothyroidism (principal); E66.01 Morbid (severe) obesity due to excess calories; F33.41 Major depressive disorder, recurrent, in partial remission; G47.9 Sleep disorder, unspecified; Z79.899 Other long term (current) drug therapy | CPT/HCPCS: 96127 ==

== ENCOUNTER 2024-10-18 09:23 | Outpatient (REF) | payer OTHER, SELFPAY ==
--- OUTSIDE RECORDS SUMMARY | 2024-10-18 10:19 | XMS_ITS | Clinical Summary ---
Author Organization [facility] [address] [place] [address] [place] [phone] Phone Care Team Providers Care Item Processor Name Role Phone Obdulia Dewitt MD Primary Care Provider [phone] Allergies Active Allergy Reactions Criticality Noted Date Comments Oxycodone 02/20/2016 Encounters Date Type Department Care Team Description 10/16/2024 11:09 AM EDT - 10/16/2024 3:09 PM EDT Emergency [facility] Emergency [address] [place] [id number] Ellis Sorensen MD Dizziness (Primary Dx); Hypothyroidism, unspecified type; Symptomatic anemia Discharge Disposition: Home or Self Care from Last 3 Months Surgical History Surgery Date Site/Laterality Comments SECTION 2015 PROCEDURE: HISTORICAL Medical History Medical History Date Comments Obese DX:Obese Preeclampsia DX:Preeclampsia Anemia Disease of thyroid gland Family History Medical History Relation Name Comments Other: KELLY Maternal Grandfather Breast cancer Maternal Grandmother deceas ed age 21, unilateral Thyroid disease Mother Relation Name Status Comments Father Alive healthy Maternal Grandfather Maternal Grandmother Mother Alive low BP Social History Tobacco Use Types Packs/Day Years Used Date Smoking Tobacco: Never Smokeless Tobacco: Never Alcohol Use Standard Drinks/Week Comments No 0 (1 standard drink = 0.6 oz pur e alcohol) Comments Unknown Sex and Gender Information Value Date Recorded Sex Assigned at Female 10/16/2024 12:47 PM EDT Legal Sex Female 8:19 AM EST Gender Identity Female 10/16/2024 12:47 PM EDT Sexual Orientation Straight 10/16/2024 12 :47 PM EDT Obstetrics History Last Filed Vital Signs Vital Sign Reading Time Taken Comments Blood Pressure 127/77 10/16/2024 2:38 PM EDT Pulse 95 10/16/2024 2:38 PM EDT Temperature 37.1 ??C (98.8 ??F) 10/16/2024 2:38 PM ED T Respiratory Rate 20 10/16/2024 2:38 PM EDT Oxygen Saturation 100% 10/16/2024 2:38 PM EDT Inhaled Oxygen Concentration - - Weight 125 kg (275 lb) 10/16/2024 9:38 AM EDT Height 157.5 cm (5' 2 ) 10/16/2024 9:38 AM EDT Body Mass Index 50.3 10/16/2024 9:38 AM EDT Plan of Treatment Health Maintenance Due Date Last Done Comments Hepatitis B Vaccines (1 of 3 - 19+ 3-dose series) 2013 Cervical Cancer Screening: P ap Smear 2015 COVID-19 Vaccine (2023-2 5 season) 2024 Cholesterol Screening (Lipid Panel) 07/07/2024 Depression Screening 07/07/2024 HIV Screening 07/07/2024 Hepatitis C Screening 07/07/2024 Social Influencers of Health Screening 07/07/2024 Influenza Vaccine (Season Ended) 2025 04/07/20 18 Hypertension/CHF/CAD Annual BMP Blood Test 10/16/2025 10/16/2024 DTaP,Tdap,and Td Vaccines (2 - Tdap) 08/29/2028 08/29/2018 HIB Vaccines Aged Out No longer eligi ble based on patient's age to complete this topic HPV Vaccines Aged Out No longer eligi ble based on patient's age to complete this topic Hepatitis A Vaccines Aged Out No long er eligible based on patient's age to complete this topic IPV Vaccines Aged Out No longer eligi ble based on patient's age to complete this topic MMR Vaccines Aged Out No longer eligi ble based on patient's age to complete this topic Meningococcal ACWY Vaccine Aged Out N o longer eligible based on patient's age to complete this topic Meningococcal B Vaccine Aged Out No l onger eligible based on patient's age to complete this topic Pneumococcal Vaccine: Pediat rics (0 to 5 Years) and At-Risk Patients (6 to 64 Years) Aged Out No longer eligi ble based on patient's age to complete this topic RSV Immunization Patients Un elsi 20 months Aged Out No longer eligible b ased on patient's age to complete this topic Varicella Vaccines Aged Out No longer eligible based on patient's age to complete this topic Procedures Procedure Name Priority Date/Time Associated Diagnosis Comments ECG ANNOTATED 10/17/2024 XR CHEST 2 VIEWS STAT 10/16/2024 12:3 3 PM EDT ECG 12-LEAD STAT 10/16/2024 11:54 AM EDT THYROID STIMULATING HORMONE STAT Add-on 10/16/2024 9:46 AM EDT CBC WITH AUTO DIFFERENTIAL STAT 10/16/2024 9:46 AM EDT TYPE AND SCREEN STAT 10/16/2024 9:46 AM EDT BASIC METABOLIC PANEL STAT 10/16/2024 9:46 AM EDT CBC AND DIFFERENTIAL STAT 10/16/2024 9:46 AM EDT from Last 3 Months Results * ECG-Annotated (10/17/2024) us Provider Onbase MD ECG ORDERABLES Final Result * XR Chest 2 Views (10/16/2024 12:33 PM EDT) Anatomical Region Laterality Modality Body Radiographic Armida ging 10/16/2024 12:5 8 PM EDT Impressions 10/16/2024 12:58 PM EDT FINDINGS/IMPRESSION: Low lung volumes. ??No consolidation or effusion. ??No congestive heart failure. -------- FINAL REPORT -------- Dictated By: Shae Meyers Dictated Date: 10/16/2024 12:58 ET Assigned Physician: Shae Meyers Reviewed and Electronically Signed By: hSae Meyers Signed Date: 10/16/2024 12:58 ET Workstation ID: [id number] Transcribed By: Self Edit Transcribed Date: 10/16/2024 12:58 ET Narrative 10/16/2024 12:58 PM EDT XR CHEST 2 VIEWS INDICATION: dyspnea TECHNIQUE: XR CHEST 2 VIEWS COMPARISON: No priors available. Procedure Note Shae Meyers MD - 10/16/2024 XR CHEST 2 VIEWS INDICATION: dyspnea TECHNIQUE: XR CHEST 2 VIEWS COMPARISON: No priors available. IMPRESSION: FINDINGS/IMPRESSION: Low lung volumes. No consolidation or effusion. Nocongestive heart failure. -------- FINAL REPORT -------- Dictated By: Shae Meyers Dictated Date: 10/16/2024 12:58 ET Assigned Physician: Shae Meyers Reviewed and Electronically Signed By: Shae Meyers Signed Date: 10/16/2024 12:58 ET Workstation ID: [id number] Transcribed By: Self Edit Transcribed Date: 10/16/2024 12:58 ET us Ellis Sorensen MD IMG XR PROCEDURES Final R esult * 12-Lead ECG (10/16/2024 11:54 AM EDT) Ventricular Rate ECG 97 BPM GEMUSE Atrial Rate 97 BPM GEMUSE P-R Interval 124 ms GEMUSE QRS Duration 92 ms GEMUSE Q-T Interval 366 ms GEMUSE QTc 464 ms GEMUSE P Wave [place] 25 degrees GEMUSE R [place] -6 degrees GEMUSE T [place] 7 degrees GEMUSE ECG Interpretation Normal sinus rhythm Borderline QT interval When compared with ECG of 07-AUG-2019 11:23, No significant change was found Confirmed by Zeus ENRIQUE YUFENG ([id number]) on 10/16/2024 7:24:31 PM GEMUSE 10/16/2024 11:5 4 AM EDT 10/16/2024 7:24 PM EDT us Ellis Sorensen MD ECG ORDERABLES Final Res ult GEMUSE * (ABNORMAL) CBC auto differential (10/16/2024 9:46 AM EDT) [facility] WBC 6.2 4.8 - 10.8 K/mcL LAB HEMETOLOGY METHOD 10/16/2024 10:48 AM [facility] RBC 4.70 3.80 - 4.80 M/mcL LAB HEMETOLOGY METHOD 10/16/2024 10:48 AM [facility] Hemoglobin 9.1(L) 11.5 - 16.0 g/dL LAB HEMETOLOGY METHOD 10/16/2024 10:48 AM [facility] Hematocrit 32.7(L) 35.0 - 47.0 % LAB HEMETOLOGY METHOD 10/16/2024 10:48 AM [facility] MCV 70.0(L) 79.0 - 98.0 FL LAB HEMETOLOGY METHOD 10/16/2024 10:48 AM [facility] MCH 19.5(L) 27.0 - 32.0 pcg LAB HEMETOLOGY METHOD 10/16/2024 10:48 AM [facility] MCHC 27.8(L) 32.0 - 37.0 g/dL LAB HEMETOLOGY METHOD 10/16/2024 10:48 AM [facility] RDW 16.1(H) 11.0 - 15.0 % LAB HEMETOLOGY METHOD 10/16/2024 10:48 AM [facility] Platelets 511(H) 130 - 400 K/mcL LAB HEMETOLOGY METHOD 10/16/2024 10:48 AM [facility] MPV 9.9 7.0 - 11.0 FL LAB HEMETOLOGY METHOD 10/16/2024 10:48 AM [facility] NRBC 0.0 <1.0 % LAB HEMETOLOGY METHOD 10/16/2024 10:48 AM [facility] NRBC Absolute 0.00 <0.10 K/mcL LAB HEMETOLOGY METHOD 10/16/2024 10:48 AM [facility] Neutrophils Relative 56.2 % LAB HEMETOLOGY METHOD 10/16/2024 10:48 AM [facility] Lymphocytes Relative 35.1 % LAB HEMETOLOGY METHOD 10/16/2024 10:48 AM [facility] Monocytes Relative 6.6 % LAB HEMETOLOGY METHOD 10/16/2024 10:48 AM [facility] Eosinophils Relative 1.3 % LAB HEMETOLOGY METHOD 10/16/2024 10:48 AM [facility] Basophils Relative 0.6 % LAB HEMETOLOGY METHOD 10/16/2024 10:48 AM [facility] Immature Granulocytes Relative 0.2 % LAB HEMETOLOGY METHOD 10/16/2024 10:48 AM [facility] Neutrophils Absolute 3.47 1.50 - 7.00 K/mcL LAB HEMETOLOGY METHOD 10/16/2024 10:48 AM [facility] Lymphocytes Absolute 2.17 1.00 - 5.00 K/mcL LAB HEMETOLOGY METHOD 10/16/2024 10:48 AM [facility] Monocytes Absolute 0.41 0.20 - 1.00 K/mcL LAB HEMETOLOGY METHOD 10/16/2024 10:48 AM [facility] Eosinophils Absolute 0.08 0.00 - 0.50 K/mcL LAB HEMETOLOGY METHOD 10/16/2024 10:48 AM [facility] Basophils Absolute 0.04 0.00 - 0.20 K/mcL LAB HEMETOLOGY METHOD 10/16/2024 10:48 AM [facility] Immature Granulocytes Absolute 0.01 0.00 - 0.03 K/mcL LAB HEMETOLOGY METHOD 10/16/2024 10:48 AM [facility] Blood Venous blood specimen / Unknown Venipuncture / Unknown 10/16/2024 9:46 AM EDT 10/16/2024 10:19 AM EDT us Ellis Sorensen MD LAB BLOOD ORDERABLES Elisa l Result Performing Organization Address [facility] Co de Phone Number [facility] [address] [place] [address], [place] [phone] * Type and screen (10/16/2024 9:46 AM EDT) ABO Group A 10/16/2024 11:14 AM EDT [facility] Rh Type Positive 10/16/2024 11:14 AM EDT [facility] Antibody Screen Negative 10/16/2024 11:14 AM EDT [facility] Blood Venous blood specimen / Unknown Venipuncture / Unknown 10/16/2024 9:46 AM EDT 10/16/2024 10:19 AM EDT us Ellis Sorensen MD LAB BLOOD BANK TEST ORDER MATTHEW Final Result Performing Organization Address [facility] Co de Phone Number [facility] [address] [place] [address], [place] [phone] * (ABNORMAL) Thyroid Stimulating Hormone (TSH) (10/16/2024 9:46 AM EDT) TSH 9.02(H) 0.40 - 4.00 mcIU/mL LAB CHEMISTRY METHOD 10/16/2024 2:47 PM EDT [facility] Blood Venous blood specimen / Unknown Venipuncture / Unknown 10/16/2024 9:46 AM EDT 10/16/2024 10:19 AM EDT us Ellis Sorensen MD LAB BLOOD ORDERABLES Elisa l Result [facility] [address] [place] [address], * (ABNORMAL) Basic metabolic panel (10/16/2024 9:46 AM EDT) Sodium 136 133 - 145 mmol/L LAB CHEMISTRY METHOD 10/16/2024 10:47 AM [facility] Potassium 4.1 3.5 - 5.5 mmol/L LAB CHEMISTRY METHOD 10/16/2024 10:47 AM [facility] Chloride 104 96 - 110 mmol/L LAB CHEMISTRY METHOD 10/16/2024 10:47 AM [facility] CO2 26 21 - 32 mmol/L LAB CHEMISTRY METHOD 10/16/2024 10:47 AM [facility] Anion Gap 6 3 - 11 LAB CHEMISTRY METHOD 10/16/2024 10:47 AM [facility] Glucose 112(H) 70 - 100 mg/dL LAB CHEMISTRY METHOD 10/16/2024 10:47 AM [facility] BUN 8 5 - 25 mg/dL LAB CHEMISTRY METHOD 10/16/2024 10:47 AM [facility] Creatinine 0.74 0.50 - 1.10 mg/dL LAB CHEMISTRY METHOD 10/16/2024 10:47 AM [facility] eGFR 112 >=60 mL/min/1. 73m2 LAB CHEMISTRY METHOD 10/16/2024 10:47 AM [facility] Comment:Calculation based on the??Chronic Kidney Disease Epidemiology Collaboration (CKD-EPI) equation refit??without adjustment for race. BUN/Creatinine Ratio 10.8 LAB CHEMISTRY METHOD 10/16/2024 10:47 AM [facility] Calcium 9.7 8.5 - 10.5 mg/dL LAB CHEMISTRY METHOD 10/16/2024 10:47 AM [facility] Blood Venous blood specimen / Unknown Venipuncture / Unknown 10/16/2024 9:46 AM EDT 10/16/2024 10:19 AM EDT us Ellis Sorensen MD LAB BLOOD ORDERABLES Elisa carrillo Result [facility] [address] [place] [address], from Last 3 Months Insurance [facility] [employer] Care Teams Item Processor Relationship Specialty Start Date End Date Obdulia Dewitt MD [address] [place] [phone] PCP - General Internal Medicine 10/16/24
--- OUTSIDE RECORDS SUMMARY | 2024-10-18 10:19 | XMS_ITS | Encounter Summary ---
Author Organization [facility] Address [address] [place] [address] Care Team Providers [employer] Name Role Phone Obdulia Dewitt MD Primary Care Provider [phone] Reason for Visit * Reason Comments Weakness - Generalized Dizziness Feels like hg is low Encounter Details Date Type Department Care Team (Late st Contact Info) Description 10/16/2024 11:09 AM EDT - 10/16/2024 3:09 PM EDT Emergency [facility] [address] [place] [id number] Ellis Sorensen MD [address] [place] [address] Dizziness (Primary Dx); Hypothyroidism, unspecified type; Symptomatic anemia Discharge Disposition: Home or Self Care Social History Tobacco Use Types Packs/Day Years [...] Orientation Straight 10/16/2024 12 :47 PM EDT documented as of this encounter Last Filed Vital Signs Vital Sign Reading [...] Mass Index 50.3 10/16/2024 9:38 AM EDT documented in this encounter Discharge Instructions * Discharge Instructions* Ellis Sorensen MD - 10/16/2024 3:01 PM EDT You were evaluated and treated in the ER today for dizziness. There are likely several causes of this based on testing done today. Your hemoglobin is 9.1 which is lower than it has been in the recentpast. Your TSH level is 9.4 which is higher than it typically should be and may mean you need additional medications for low thyroid. Please continue to take your daily medications as prescribed. Return to the ER if you develop chest pain, difficulty breathing or any other concerning/worrisome symptoms. Please follow-up with your primary care physician. * Attachments The following attachments cannot be sent through Care Everywhere. * Anemia ([place]atem[place]) documented in this encounter Discharge Disposition Disposition Code Departure Means Destination Comment s Home or Self Care documented in this encounter Progress Notes * Kary Price RN - 10/16/2024 9:36 AM EDT Pt c/o feeling weak/dizzy for 4 days. Tried to get a hold of contract agent w/o having a call back yet. Pt usually feels this way when she needs a blood transfusions * Ellis Sorensen MD - 10/16/2024 9:33 AM EDT Emergency Medicine Note Patient Name: Ines Ortega Initial Evaluation: 10/16/2024 : 1995 Patient's PCP: Obdulia Dewitt MD Emergency Physician: Ellis Sorensen MD History of Present Illness Chief Complaint: Chief Complaint Patient presents with Weakness - Generalized Dizziness Feels like hg is low 29-year-old with history of anemia, hypothyroid presents for evaluation of shortness of breath, fatigue and lightheadedness. Reports symptoms began 4 to 5 days and she felt similar at that time she required a transfusion for anemia. Reports poor appetite and intake recently as well. Reports last menstrual period ended on 10/06 but it was quite heavy with lots of clots. No current vaginal bleeding, rectal bleeding, coughing up blood. Denies chest pain but does report dyspnea on exertion. Denies cough, fever, sore throat, vomiting, diarrhea. History provided by: Patient ROS: I have performed a ROS with the pertinent positives and negatives documented in the history ofpresent illness. Previous History Past Medical History: Diagnosis Date Anemia Disease of thyroid gland Obese DX:Obese Preeclampsia DX:Preeclampsia Past Surgical History: Procedure Laterality Date SECTION 2015 PROCEDURE: HISTORICAL Social History Tobacco Use Smoking status: Never Smokeless tobacco: Never Substance Use Topics Alcohol use: No Drug use: No Family History Problem Relation Name Age of Onset Other (Other: KELLY ) Maternal Grandfather Breast cancer Maternal Grandmother age 21, unilateral Thyroid disease Mother is allergic to oxycodone. No current facility-administered medications on file prior to encounter. No current outpatient medications on file prior to encounter. Physical Exam ED Triage Vitals [10/16/24 0938] Temp Heart Rate Resp BP 37.1 ??C (98.8 ??F) (!) 115 24 114/59 SpO2 Temp Source Heart Rate Source Patient Position 100 % Oral -- -- BP Location FiO2 (%) -- -- Physical Exam Vitals and nursing note reviewed. Constitutional: Appearance: Normal appearance. She is not ill-appearing. HENT: Head: Normocephalic. Mouth/Throat: Mouth: Mucous membranes are moist. Eyes: Conjunctiva/sclera: Conjunctivae normal. Cardiovascular: Rate and Rhythm: Normal rate and regular rhythm. Pulmonary: Effort: Pulmonary effort is normal. Breath sounds: Normal breath sounds. No stridor. Abdominal: Palpations: Abdomen is soft. Tenderness: There is no abdominal tenderness. Musculoskeletal: Cervical back: Normal range of motion. Right lower leg: No swelling or tenderness. No edema. Left lower leg: No swelling or tenderness. No edema. Skin: General: Skin is warm and dry. Neurological: General: No focal deficit present. Mental Status: She is alert. Psychiatric: Attention and Perception: Attention normal. Behavior: Behavior normal. Results Labs Reviewed BASIC METABOLIC PANEL - Abnormal Result Value Sodium 136 Potassium 4.1 Chloride 104 CO2 26 Anion Gap 6 Glucose 112 (*) BUN 8 Creatinine 0.74 eGFR 112 BUN/Creatinine Ratio 10.8 Calcium 9.7 CBC WITH AUTO DIFFERENTIAL - Abnormal WBC 6.2 RBC 4.70 Hemoglobin 9.1 (*) Hematocrit 32.7 (*) MCV 70.0 (*) MCH 19.5 (*) MCHC 27.8 (*) RDW 16.1 (*) Platelets 511 (*) MPV 9.9 NRBC 0.0 NRBC Absolute 0.00 Neutrophils Relative 56.2 Lymphocytes Relative 35.1 Monocytes Relative 6.6 Eosinophils Relative 1.3 Basophils Relative 0.6 Immature Granulocytes Relative 0.2 Neutrophils Absolute 3.47 Lymphocytes Absolute 2.17 Monocytes Absolute 0.41 Eosinophils Absolute 0.08 Basophils Absolute 0.04 Immature Granulocytes Absolute 0.01 THYROID STIMULATING HORMONE - Abnormal TSH 9.02 (*) CBC AND DIFFERENTIAL Narrative: The following orders were created for panel order CBC and differential. Procedure Abnormality Status --------- ------ CBC auto differential[[id number]] Abnormal Final result Please view results for these tests on the individual orders. TYPE AND SCREEN ABO Group A Rh Type Positive Antibody Screen Negative POC , URINE DIAGNOSTIC Abnormal Labs Reviewed BASIC METABOLIC PANEL - Abnormal; Notable for the following components: Result Value Glucose 112 (*) All other components within normal limits CBC WITH AUTO DIFFERENTIAL - Abnormal; Notable for the following components: Hemoglobin 9.1 (*) Hematocrit 32.7 (*) MCV 70.0 (*) MCH 19.5 (*) MCHC 27.8 (*) RDW 16.1 (*) Platelets 511 (*) All other components within normal limits THYROID STIMULATING HORMONE - Abnormal; Notable for the following components: TSH 9.02 (*) All other components within normal limits XR Chest 2 Views Final Result FINDINGS/IMPRESSION: Low lung volumes. No consolidation or effusion. No congestive heart failure. -------- FINAL REPORT -------- Dictated By: Shae Meyers Dictated Date: 10/16/2024 12:58 ET Assigned Physician: Shae Meyers Reviewed and Electronically Signed By: Shae Meyers Signed Date: 10/16/2024 12:58 ET Workstation ID: [id number] Transcribed By: Self Edit Transcribed Date: 10/16/2024 12:58 ET I have discussed the incidental/abnormal imaging and/or lab abnormalities with the patient and haveinstructed them the need for further evaluation and workup with their primary care doctor. I have provided the patient with a paper copy of the abnormality. The laboratory results, imaging results and other diagnostic exam results were reviewed in the EMR. EKG Interpretation Critical Care Time None ? Differential Diagnosis Medical Decision Making Medical Decision Making Tachycardic on arrival. Concern for symptomatic anemia. She shows me numbers from her patient portal which shows that most recent values for hemoglobin were around 11. Today hemoglobin is 9.1 and this is likely making the patient feel ill. Will give IV fluids initially and obtain chest x-ray to rule out other pathology. Medications sodium chloride 0.9 % bolus 1,000 mL (0 mL intravenous Stopped 10/16/24 1400) ED Course as of 10/16/24 1655 Mon Oct 16, 2024 1456 Patient resting comfortably signs have normalized. TSH results show elevation and she may needmed adjustment by primary care physician. We again discussed that the anemia will slowly improve between menstrual cycles. She will follow-up with her primary care for additional testing and medication management. [TC] ED Course User Index [TC] Ellis Sorensen MD Clinical Impressions as of 10/16/241654 Dizziness Hypothyroidism, unspecified type Symptomatic anemia Procedures Procedures Diagnosis 1. Dizziness 2. Hypothyroidism, unspecified type 3. Symptomatic anemia Disposition Discharge ED Prescriptions None Physician Attestation Please note that this chart has been created using speech recognition software and may contain errors related to that system, including errors in grammar, punctuation, and spelling. It may also include errors in words and phrases. If there are any questions or concerns, please feel free to contact me for clarification. Ellis Sorensen MD 10/16/24 1147 Ellis Sorensen MD 10/16/241655 documented in this encounter Plan of Treatment Not on file documented as of this encounter Procedures Procedure Name Priority Date/Time Associated Diagnosis Comments XR CHEST 2 VIEWS STAT 10/16/2024 12:3 3 PM EDT ECG 12-LEAD STAT 10/16/2024 11:54 AM EDT CBC WITH AUTO DIFFERENTIAL STAT 10/16/2024 9:46 AM EDT CBC AND DIFFERENTIAL STAT 10/16/2024 9:46 AM EDT TYPE AND SCREEN STAT 10/16/2024 9:46 AM EDT THYROID STIMULATING HORMONE STAT Add-on 10/16/2024 9:46 AM EDT BASIC METABOLIC PANEL STAT 10/16/2024 9:46 AM EDT documented in this encounter Results * XR Chest 2 Views (10/16/2024 12:33 [...] Signed Date: 10/16/2024 12:58 ET Workstation ID: [id number] Transcribed By: Self Edit Transcribed Date: 10/16/2024 [...] Signed Date: 10/16/2024 12:58 ET Workstation ID: [id number] Transcribed By: Self Edit Transcribed Date: 10/16/2024 12:58 ET Ellis Sorensen MD IMG XR PROCEDURES Final R esult * 12-Lead ECG (10/16/2024 11:54 AM EDT) Ventricular Rate ECG 97 BPM GEMUSE Atrial Rate 97 BPM GEMUSE P-R Interval 124 ms GEMUSE QRS Duration 92 ms GEMUSE Q-T Interval 366 ms GEMUSE QTc 464 ms GEMUSE P Wave [place] 25 degrees GEMUSE R [place] -6 degrees GEMUSE T [place] 7 degrees GEMUSE ECG Interpretation Normal sinus rhythm Borderline QT interval When compared with ECG of 07-AUG-2019 11:23, No significant change was found Confirmed by Zeus ENRIQUE YUFENG ([id number]) on 10/16/2024 7:24:31 PM GEMUSE 10/16/2024 11:5 4 AM EDT 10/16/2024 7:24 PM EDT us Ellis Sorensen MD ECG ORDERABLES Final Res ult GEMUSE * (ABNORMAL) Thyroid Stimulating Hormone (TSH) (10/16/2024 9:46 AM EDT) Pathologist [facility] TSH 9.02(H) 0.40 - 4.00 mcIU/mL LAB CHEMISTRY METHOD 10/16/2024 2:47 PM EDT [facility] Blood Venous blood specimen / Unknown Venipuncture / Unknown 10/16/2024 9:46 AM EDT 10/16/2024 10:19 AM EDT us Ellis Sorensen MD LAB BLOOD ORDERABLES Elisa gerardo Result [facility] [address] [place] [address], [place] [phone] * (ABNORMAL) CBC auto differential (10/16/2024 9:46 AM EDT) Pathologist [facility] WBC 6.2 4.8 - 10.8 K/mcL LAB HEMETOLOGY METHOD 10/16/2024 10:48 AM EDT [facility] RBC 4.70 3.80 - 4.80 M/mcL LAB HEM[facility]OLOG[facility] Hemoglobin 9.1(L) 11.5 - 16.0 g/dL LAB HEMETOLOGY METHOD 10/16/2024 10:48 AM EDT [facility] Hematocrit 32.7(L) 35.0 - 47.0 % LAB HEMETOLOGY METHOD 10/16/2024 10:48 AM T [facility] MCV 70.0(L) 79.0 - 98.0 FL LAB HEMETOLOGY METHOD 10/16/2024 10:48 AM [facility] MCH 19.5(L) 27.0 - 32.0 pcg LAB HEMETOLOGY METHOD 10/16/2024 10:48 AM EDT [facility] MCHC 27.8(L) 32.0 - 37.0 g/dL LAB HEMETOLOGY METHOD 10/16/2024 10:48 AM EDT [facility] RDW 16.1(H) 11.0 - 15.0 % LAB HEMETOLOGY METHOD 10/16/2024 10:48 AM [facility] Platelets 511(H) 130 - 400 K/mcL LAB HEMETOLOGY METHOD 10/16/2024 10:48 AM [facility] MPV 9.9 7.0 - 11.0 FL LAB HEMETOLOGY METHOD 10/16/2024 10:48 AM [facility] NRBC 0.0 <1.0 % LAB HEMETOLOGY METHOD 10/16/2024 10:48 AM [facility] NRBC Absolute 0.00 <0.10 K/mcL LAB HEMETOLOGY METHOD 10/16/2024 10:48 AM [facility] Neutrophils Relative 56.2 % LAB HEMETOLOGY METHOD 10/16/2024 10:48 AM [facility] Lymphocytes Relative 35.1 % LAB HEMETOLOGY METHOD 10/16/2024 10:48 AM [facility] Monocytes Relative 6.6 % LAB HEMETOLOGY METHOD 10/16/2024 10:48 AM [facility] Eosinophils Relative 1.3 % LAB HEMETOLOGY METHOD 10/16/2024 10:48 AM [facility] Basophils Relative 0.6 % LAB HEMETOLOGY METHOD 10/16/2024 10:48 AM [facility] Immature Granulocytes Relative 0.2 % LAB HEMETOLOGY METHOD 10/16/2024 10:48 AM [facility] Neutrophils Absolute 3.47 1.50 - 7.00 K/mcL LAB HEMETOLOGY METHOD 10/16/2024 10:48 AM [facility] Lymphocytes Absolute 2.17 1.00 - 5.00 K/mcL LAB HEMETOLOGY METHOD 10/16/2024 10:48 AM [facility] Monocytes Absolute 0.41 0.20 - 1.00 K/mcL LAB HEMETOLOGY METHOD 10/16/2024 10:48 AM [facility] Eosinophils Absolute 0.08 0.00 - 0.50 K/mcL LAB HEMETOLOGY METHOD 10/16/2024 10:48 AM EDT [facility] Basophils Absolute 0.04 0.00 - 0.20 K/[facility] LAB HEMETOLOGY METHOD 10/16/2024 10:48 AM EDT [facility] Immature Granulocytes Absolute 0.01 0.00 - 0.03 K/[facility] LAB HEMETOLOGY METHOD 10/16/2024 10:48 AM EDT [facility] Blood Venous blood specimen / Unknown Venipuncture / Unknown 10/16/2024 9:46 AM EDT 10/16/2024 10:19 AM EDT us Ellis Sorensen MD LAB BLOOD ORDERABLES Elisa l Result Performing Organization Address [facility]/ZIP Co de Phone Number [facility] [address] [place] [address], [place] [phone] * Type and screen (10/16/2024 9:46 AM EDT) ABO Group A 10/16/2024 11:14 AM EDT [facility] Rh Type Positive 10/16/2024 11:14 AM EDT [facility] Antibody Screen Negative 10/16/2024 11:14 AM EDT [facility] Blood Venous blood specimen / Unknown Venipuncture / Unknown 10/16/2024 9:46 AM EDT 10/16/2024 10:19 AM EDT us Ellis Sorensen MD LAB BLOOD BANK TEST ORDER MATTHEW Final Result Performing Organization Address [facility]/ZIP Co de Phone Number [facility] [address] [place] [address], [place] [phone] * (ABNORMAL) Basic metabolic panel (10/16/2024 9:46 AM EDT) Sodium 136 133 - 145 mmol/L LAB CHEMISTRY METHOD 10/16/2024 10:47 AM [facility] Potassium 4.1 3.5 - 5.5 mmol/L LAB CHEMISTRY METHOD 10/16/2024 10:47 AM [facility] Chloride 104 96 - 110 mmol/L LAB CHEMISTRY METHOD 10/16/2024 10:47 AM [facility] CO2 26 21 - 32 mmol/L LAB CHEMISTRY METHOD 10/16/2024 10:47 AM [facility] Anion Gap 6 3 - 11 LAB CHEMISTRY METHOD 10/16/2024 10:47 AM [facility] Glucose 112(H) 70 - 100 mg/dL LAB CHEMISTRY METHOD 10/16/2024 10:47 AM [facility] BUN 8 5 - 25 mg/dL LAB CHEMISTRY METHOD 10/16/2024 10:47 AM [facility] Creatinine 0.74 0.50 - 1.10 mg/dL LAB CHEMISTRY METHOD 10/16/2024 10:47 AM [facility] eGFR 112 >=60 mL/min/1. 73m2 LAB CHEMISTRY METHOD 10/16/2024 10:47 AM [facility] Comment:Calculation based on the??Chronic Kidney Disease Epidemiology Collaboration (CKD-EPI) equation refit??without adjustment for race. BUN/Creatinine Ratio 10.8 LAB CHEMISTRY METHOD 10/16/2024 10:47 AM [facility] Calcium 9.7 8.5 - 10.5 mg/dL LAB CHEMISTRY METHOD 10/16/2024 10:47 AM [facility] Blood Venous blood specimen / Unknown Venipuncture / Unknown 10/16/2024 9:46 AM EDT 10/16/2024 10:19 AM EDT us Ellis Sorensen MD LAB BLOOD ORDERABLES Elisa carrillo Result [facility] [place] [facility] [address] [place] [address], documented in this encounter Visit Diagnoses Diagnosis Dizziness- Primary Dizziness and giddiness Hypothyroidism, unspecified type Symptomatic anemia documented in this encounter Administered Medications Inactive Administered Medications - up to 3 most recent administrations Medication Order MAR Action Action Date Dose Rate Site sodium chloride 0.9 % bolus 1,000 mL 1,000 mL, intravenous, at 1,000 mL/hr, Administer over 1 Hours, Once, On Wed10/16/24 at 1155, For 1 dose New Bag 10/16/2024 12:33 PM EDT 1,000 mL 1000 mL/hr documented in this encounter Active and Recently Administered Medications Times are shown in EDT. Scheduled Medication Order 10/14/2024 10/15/2024 10/16/2024 sodium chloride 0.9 % bolus 1,000 mL (COMPLETED) 1,000 mL, intravenous, at 1,000 mL/hr, Administer over 1 Hours, Once, On Wed10/16/24 at 1155, For 1 dose 1233 (New Bag - Prov ider: Jaylene Fine, RANDI)1400 (Stopped - Provider: Ana Perez RN) documented in this encounter Orders Medications Ordered That Tevin ht Not Have Been Administered Count Last Ordered Date First Ordered Date sodium chloride 0.9 % bolus 1,000 mL 1 10/03 documented in this encounter Care Teams [employer] Relationship Specialty Start Date End Date Obdulia Dewitt MD [address] [place] [address] PCP - General Internal Medicine 10/16/24 documented as of this encounter
[2024-10-18 13:18] LABS: MANUAL DIFF FLAG NO
[2024-10-18 13:30] LABS: Basophils Absolute Auto 0.1 X10*3/uL (0.0-0.2); Basophils Percent Auto 0.8 % (0-2); Eosinophils Absolute Auto 0.1 X10*3/uL (0.0-0.4); Hematocrit 32.1 % (37.0-47.0); Hemoglobin 9.1 g/dl (12.0-16.0); Imm Gran Abs Auto 0.02 X10*3/uL (0.00-0.03); Imm Gran Pct Auto 0.3 % (0.0-0.4); Lymphocytes Percent Auto 31.1 % (20-40); Mean Corpuscular HGB Conc 28.3 g/dl (31.0-35.0); Mean Corpuscular Hemoglobin 19.4 pg (27.0-33.0); Mean Corpuscular Volume 68.6 fL (80.0-98.0); Mean Platelet Volume 9.7 fL (9.4-12.3); Monocytes Absolute Auto 0.4 X10*3/uL (0.1-1.2); Monocytes Percent Auto 6.8 % (2-11); Neutrophils Absolute Auto 3.8 x10*3/uL (2.0-8.3); Platelet Count 469 X10*3/uL (160-400); Red Blood Count 4.68 X10*6/uL (4.20-5.50); Red Cell Distribution Width 16.5 % (11.0-16.0); White Blood Count 6.4 X10*3/uL (4.8-10.8)
[2024-10-18 14:04] LABS: Ferritin < 2 ng/mL (10-122)
[2024-10-18 14:07] LABS: TSH reflex Free T4 4.54 uIU/mL (0.32-4.0)
[2024-10-18 14:38] LABS: Free T4 (Free Thyroxine) 1.27 ng/dL (0.71-1.85)
== END 2024-10-18 09:24 | disposition home or self-care (01) ==
LOC: HO.HMGCLDS 09:23
PROVIDERS: PCP Internal Medicine; Visit Provider Internal Medicine
DX: D50.9 Iron deficiency anemia, unspecified (principal); N92.0 Excessive and frequent menstruation with regular cycle; F33.41 Major depressive disorder, recurrent, in partial remission; I10 Essential (primary) hypertension
CPT/HCPCS: 36415; 82728; 84439; 84443; 85025

== ENCOUNTER 2024-11-08 11:00 | Outpatient (AMB) | payer OTHER, SELFPAY ==
--- NOTE | 2024-11-08 11:08 | MHC.OFFVIS ---
Vital Signs 11/08/24 11:12 Height 5 ft 2 in Weight 276 lb BMI 50.5 BP 122/68 Blood Pressure Location Rt brachial Pulse 105 H Pulse Source Pulse Oximeter Pulse Oximetry (%) 99 Oxygen Delivery Method Room Air Intake Visit Reasons: N-WW-Oxujgoij, unspecified Career Resource Specialist Required: No Accompanied by: Self / Same As Patient Allergies oxycodone [OXYCODONE] Allergy (Intermediate, Verified 11/08/24 11:12) RASH, hives phentermine [From Fastin (phentermine)] Adverse Reaction (Severe, Verified 11/08/24 11:12) Chest Pain Medication List - Last Reconciled 11/08/24 by VERO Burton blood pressure kit-extra large As directed chlorhexidine gluconate 4% (Hibiclens) 1 appl topical TID PRN 2 doses cholestyramine (with sugar) 4 gram 4 grams PO DAILY 30 days ferrous sulfate 325 mg PO BID 90 days hydroxyzine HCl 25 mg PO BEDTIME 90 days ketoconazole 2% 1 appl topical 2XW 30 days levothyroxine 200 mcg PO DAILY metoprolol succinate ER 25 mg PO DAILY 90 days omeprazole 20 mg PO DAILY sennosides-docusate sodium 8.6-50 mg (Senna Plus) 2 tab-caps (2 x 8.6-50 mg) PO BEDTIME PRN 90 days HPI Comments Details: Right-handed 29-yr-old female presents for new pt evaluation of headache disorder. Pt is accompanied by her friend. Pt reports she has had regualr headcahes, but then started having 2 types of migraine headaches about 2 years without precipitating cause- no preceding infection, travel, accidnet, injury. PMH and ROS are notable for:? General: anemia d/t menorhagia, on oral iron with vitamin-C/OJ and iron infusions, most recent ferritin was under 2, orthostatic lightheadedness. Musculoskeletal disorders or injury: non-radiating aching back pain. Cramps: nocturnal legs History of concussion/head injury: denies Mood d/o: Anxiety-severe, Depression- on a wait list for therapy Respiratory d/o: denies CV disease: HTN Clotting or hematology d/o: denies Endocrine or metabolic d/o: hypothyroidism- dx in 2016 History of seizure: denies. 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 States she does not want to take control. Family planning: has 2 children 9 and 6 yrs old- no plans for fuuture children. Family history of migraine or other headache disorder: mother Lifestyle considerations: Sleep routine: Usual bedtime: 8-10pm and wake-up time: 6am Sleep difficulties: h/o HST- per pt WNL. Endorses: Snoring, daytime sleepiness, Fatigue, weight gain since last sleep study. Restless sleep, Leg Cramps. 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 Age/time of onset: 27 Preceding causes: none Previous work-up: no h/o head imaging Types of headache disorders: 2 Typical headache characteristics: Prodrome symptoms: unsure Aura: denies Pain intensity: severe Location, quality, characteristics: right frontal aching pain that moves down the face/right side of head down the body into RLE w/o weakness or paresthesias, and without ptosis, nasal congestion, red/watery eye, speech changes, visual aura. Associated symptoms: photophobia, mild phonophobia, nausea, lightheadedness, fatigue, marked tiredness, cognitive difficulties, activity intolerance. Postdrome: residual sluggishness Triggers: no known triggers Time of day: No specific time of day Duration and Frequency: Can last 1-7 days, but usually 1-2 days but then returns in a day or 2. How does headache impact your life? Unable to do her usual activities. Typical headache characteristics: Prodrome symptoms: unsure Aura: none Pain intensity: mild-moderate Location, quality, characteristics: holocranial strong headache- this one does move into lower body Associated symptoms: photophobia, nausea, lightheadedness, fatigue, activity intolerance. Postdrome: residual sluggishness Triggers: no known triggers Time of day: No specific time of day Duration and Frequency: this headache is less frequent. However has a some headache everyday. How does headache impact your life? impacts but less so than her right sided headache Current acute medication use/interventions: Ibuprofen 600mg every 6 hours (typically bid) alternates w/ Tylenol 1000mg every 6 hrs- almost daily Current preventative medication use: on metoprolol ER 25mg for HTN- started in 2017. Current non-pharmacological interventions: rest [facility] Medical History Iron deficiency anemia Low hemoglobin Pelvic pain Hospital discharge follow-up Surgical History Hx of section Hx laparoscopic cholecystectomy Family History Father Mental health disorder Mother Asthma Mental health disorder Maternal Grandmother Breast cancer Family/Other Colon cancer Brother Asthma Social History Household Members: None Housing: Apartment Alcohol intake: current Alcohol intake frequency: a few times a month Patient Tobacco Use Status: Never used Tobacco e-Cigarette/Vaping Use: Never Used service: No Current occupational status: unemployed Cognitive needs: No Hearing needs: No Vision needs: Yes Physical Exam Vital Signs: Last Vital Signs Pulse 105 H 11/08/24 11:12 BP 122/68 11/08/24 11:12 Pulse Ox 99 11/08/24 11:12 Oxygen Delivery Method Room Air 11/08/24 11:12 BMI result Body Mass Index 50.5 Const Orientation/consciousness: patient oriented x3 Resp Effort & Inspection: normal respiratory effort and able to speak in complete sentences Neuro Other: Mallampati stage IV No palpable scalp tenderness. Mild posterior cervical tightness. Negative bilateral [place]. Cervical range of motion- full without restriction General: patient oriented x3 Cranial nerves: Yes CN's II-XII intact bilaterally Cognition (Neuro): normal cognition Gait exam (Neuro): Normal gait present Motor exam (neuro): 5/5 motor strength present throughout Deep tendon reflexes (DTR's): Right triceps reflex intensity grade: 2+, Left triceps reflex intensity grade: 2+, Rt Biceps (C5, C6): 2+, Left biceps reflex intensity grade: 2+, Right brachioradialis reflex intensity grade: 2+, Left brachioradialis reflex intensity grade: 2+, Right patellar reflex intensity grade: 2+ and Left patellar reflex intensity grade: 2+ Coordination: akfnwl-ti-glyc test normal, tandem gait normal and Romberg test negative Pupils: Normal pupillary reactivity/response: bilateral Psych Appearance: grossly normal Mental Status: mental status grossly normal Speech and movement: Normal speech and movement present Affect: normal affect Attitude: cooperative Thought process: Normal thought process present Assessment & Plan Assessment & Plan (1) Worsening headaches: Code(s): R51.9 - Headache, unspecified Category: Medical (2) Right-sided headache: Code(s): R51.9 - Headache, unspecified Category: Medical (3) Pain, lower/upper extremity: Comment: Right-sided, associated right side locked headache Code(s): M79.603 - Pain in arm, unspecified; M79.606 - Pain in leg, unspecified Category: Medical (4) Difficulty sleeping: Code(s): G47.9 - Sleep disorder, unspecified Category: Medical (5) Chronic migraine without aura: Code(s): G43.709 - Chronic migraine without aura, not intractable, without status migrainosus Category: Medical Plan Pt advised to undergo: Brain MRI with and without contrast to assess for secondary intracranial etiologies of right-sided side lab migraine with right-sided body pain XR C-spine In-lab PSG to assess for sleep apnea and periodic limb movements of sleep in setting of weight gain and BMI greater than 50. For overall headache management: Optimize good self-care, including but not limited to maintaining a healthy diet, adequate fluid intake, adequate sleep, and engaging in regular physical activity. Track headaches, especially after any treatment regimen changes. Migraine ALICE App is one of many headache tracking apps. Information shared, via portal, on non-pharmacological interventions which may help to alleviate headache attack burden. For light sensitivity: Patient may benefit from trying blue light filtering glasses, green glasses, green light therapy. For sound sensitivity: Patent may benefit from trying noise cancellation ear plugs. For acute (as needed) headache treatment: It is important to take acute medications at the first sign of headache, however it is advised to avoid frequent acute medication overuse. Goal is to reduce ibuprofen and Tylenol use to less than 15 days per month. Trial Sumatriptan 100mg tab, 1/2 - 1 tab (50-100mg) at onset of headache, may repeat in 2 hours. Max of 2 tabs (200mg) per 24 hours. May take sumatriptan with OTC Tylenol 650-1,000mg every 4-6 hours, Ibuprofen (liquid gels) 600mg every 6 hours, or Naproxen (liquid gels) 440mg q 12 hrs as needed. Potential adverse effects of triptans, include but are not limited to nausea, fatigue, chest tightness/tingling (usually passes within a few minutes), medication overuse headaches. Previous acute migraine medication trials: Tylenol and ibuprofen- not fully effective Acute migraine medication contraindications: None at this time For headache prevention medication: Preventative medications should be taken routinely as prescribed for best effect, it may take several weeks for full effect to take effect. Start Riboflavin 400mg daily in the morning Start Magnesium 400mg daily at bedtime- may take every other night or hold for loose stools Trial Topiramate 25 mg tab, 1 tab daily at bedtime for 1 week, then increase to 2 tabs daily at bedtime. Potential adverse effects of Topiramate, include but are not limited to fatigue, cognitive changes, paresthesias (tingling), vision changes, kidney stones. Continue metoprolol ER 25 mg daily- initially order for HTN. Previous migraine prevention medication trials: None Migraine prevention medication contraindications: All beta-blockers due to asthma diagnosis For restless leg syndrome symptoms: Continue oral ferrous sulfate supplement taken with vitamin-C. Follow-up with Hematology for iron infusions. In-lab sleep study to assess for periodic limb movements of sleep as above Patient may benefit from reading ?navigating life with restless leg syndrome? by Dr. Micheal Peña and the [facility]. Pt seen in collaboration w/ Dr Tesha Alicia. Will follow-up upon review of above and patient to follow-up in clinic in 3-4 months or sooner prn. Orders: Orders MR head/brain wo/w con Today M79.603 - Pain in arm, unspecified, M79.606 - Pain in leg, unspecified, R51.9 - Headache, unspecified XR cervical spine w flex/ext Today M54.2 - Cervicalgia, M79.603 - Pain in arm, unspecified, M79.606 - Pain in leg, unspecified, R51.9 - Headache, unspecified RT PSG in-lab sleep study Today G25.81 - Restless legs syndrome, G47.19 - Other hypersomnia, G47.9 - Sleep disorder, unspecified, R06.83 - Snoring, Z68.43 - Body mass index [BMI] 50.0-59.9, adult Medications: New riboflavin (vitamin B2) 400 mg PO DAILY 30 days 30 tabs 6RF sumatriptan succinate (0.5 - 1 x 100 mg) 50 - 100 mg orally at onset of headache, may repeat in 2 hrs PRN; max 2 tabs per day or 4 tabs/week (may take with Ibuprofen) 30 days 12 tabs 6RF migraine headache magnesium oxide may hold for loose stools 400 mg PO BEDTIME 30 days 30 tabs 6RF Coding Level of Care Code New Pt Level 4 (48105) Diagnoses Worsening headaches R51.9 Right-sided headache R51.9 Pain, lower/upper extremity M79.603; M79.606 Difficulty sleeping G47.9 Chronic migraine without aura G43.709
[2024-11-08 11:12] VITALS: BP 122/68; PULSE 105; O2SAT 99; BMI 50.5
--- OUTSIDE RECORDS SUMMARY | 2024-11-08 12:25 | XMS_ITS | Clinical Summary ---
Author Organization [facility] [address] [place] [address] [place] [phone] Phone Care Team Providers Care Screenplay Writer Name Role Phone Obdulia Dewitt MD Primary Care Provider [phone] Allergies Active Allergy Reactions Criticality Noted Date Comments Oxycodone 02/20/2016 Encounters Date Type Department Care Team Description 10/16/2024 11:09 AM EDT - 10/16/2024 3:09 PM EDT Emergency [facility] Emergency [address] [place] [phone] Ellis Sorensen MD Dizziness (Primary Dx); Hypothyroidism, [...] Signed Date: 10/16/2024 12:58 ET Workstation ID: [id number] Transcribed By: Self Edit Transcribed Date: 10/16/2024 [...] Signed Date: 10/16/2024 12:58 ET Workstation ID: [id number] Transcribed By: Self Edit Transcribed Date: 10/16/2024 12:58 ET us Ellis Sorensen MD IMG XR PROCEDURES Final R esult * 12-Lead ECG (10/16/2024 11:54 AM EDT) Ventricular Rate ECG 97 BPM GEMUSE Atrial Rate 97 BPM GEMUSE P-R Interval 124 ms GEMUSE QRS Duration 92 ms GEMUSE Q-T Interval 366 ms GEMUSE QTc 464 ms GEMUSE P Wave [place] 25 degrees GEMUSE R [place] -6 degrees GEMUSE T [place] 7 degrees GEMUSE ECG Interpretation Normal sinus rhythm Borderline QT interval When compared with ECG of 07-AUG-2019 11:23, No significant change was found Confirmed by Zeus ENRIQUE YUFENG ([id number]) on 10/16/2024 7:24:31 PM GEMUSE 10/16/2024 11:5 4 AM EDT 10/16/2024 7:24 PM EDT us Ellis Sorensen MD ECG ORDERABLES Final Res ult GEMUSE * (ABNORMAL) CBC auto differential (10/16/2024 9:46 AM EDT) [facility] WBC 6.2 4.8 - 10.8 K/mcL LAB HEMETOLOGY METHOD 10/16/2024 10:48 AM [facility] RBC 4.70 3.80 - 4.80 M/mcL LAB HEMETOLOGY METHOD 10/16/2024 10:48 AM [facility] Hemoglobin 9.1(L) 11.5 - 16.0 g/dL LAB HEMETOLOGY METHOD 10/16/2024 10:48 AM [facility] Hematocrit 32.7(L) 35.0 - 47.0 % LAB HEMETOLOGY METHOD 10/16/2024 10:48 AM [facility] MCV 70.0(L) 79.0 - 98.0 FL LAB HEMETOLOGY METHOD 10/16/2024 10:48 AM [facility] MCH 19.5(L) 27.0 - 32.0 pcg LAB HEMETOLOGY METHOD 10/16/2024 10:48 AM [facility] MCHC 27.8(L) 32.0 - 37.0 g/dL LAB HEMETOLOGY METHOD 10/16/2024 10:48 AM [facility] RDW 16.1(H) 11.0 - [...] 10:48 AM [facility] Basophils Absolute 0.04 0.00 - 0.20 K/mcL LAB HEMETOLOGY METHOD 10/16/2024 10:48 AM [facility] Immature Granulocytes Absolute 0.01 0.00 - 0.03 K/mcL LAB HEMETOLOGY METHOD 10/16/2024 10:48 AM [facility] Blood Venous blood specimen / Unknown Venipuncture / Unknown 10/16/2024 9:46 AM EDT 10/16/2024 10:19 AM EDT us Ellis Sorensen MD LAB BLOOD ORDERABLES Elisa l Result Performing Organization Address [facility] Co de Phone Number [facility] [address] [place] [address], [place] [phone] * Type and screen (10/16/2024 9:46 AM EDT) ABO Group A 10/16/2024 11:14 AM EDT [facility] Rh Type Positive 10/16/2024 11:14 AM EDT [facility] Antibody Screen Negative 10/16/2024 11:14 AM EDT [facility] Blood Venous blood specimen / Unknown Venipuncture / Unknown 10/16/2024 9:46 AM EDT 10/16/2024 10:19 AM EDT us Ellis Sorensen MD LAB BLOOD BANK TEST ORDER MATTHEW Final Result Performing Organization Address [facility] Co de Phone Number [facility] [address] [place] [address], [place] [phone] * (ABNORMAL) Thyroid Stimulating Hormone (TSH) (10/16/2024 9:46 AM EDT) TSH 9.02(H) 0.40 - 4.00 mcIU/mL LAB CHEMISTRY METHOD 10/16/2024 2:47 PM EDT [facility] Blood Venous blood specimen / Unknown Venipuncture / Unknown 10/16/2024 9:46 AM EDT 10/16/2024 10:19 AM EDT us Ellis Sorensen MD LAB BLOOD ORDERABLES Elisa l Result [facility] [address] [place] [address], * (ABNORMAL) Basic metabolic panel (10/16/2024 9:46 [...] MD LAB BLOOD ORDERABLES Elisa carrillo Result [facility] [address] [place] [address], from Last 3 Months Insurance [facility] [employer] Care Teams Screenplay Writer Relationship Specialty Start Date End Date Obdulia Dewitt MD [address] [place] [address] PCP - General Internal Medicine 10/16/24
== END 2024-11-08 12:18 | disposition home or self-care (01) ==
LOC: HO.HSMS 11:01
PROVIDERS: PCP Internal Medicine; Visit Provider Nurse Practitioner Family
DX: R51.9 Headache, unspecified (principal); M79.603 Pain in arm, unspecified; M79.606 Pain in leg, unspecified; G47.9 Sleep disorder, unspecified; G43.709 Chronic migraine without aura, not intractable, without status migrainosus
CPT/HCPCS: 99204

== ENCOUNTER → 2024-11-08 11:00 | Outpatient (BNVA) | payer OTHER, SELFPAY | PROVIDERS: PCP Internal Medicine; Visit Provider Nurse Practitioner Family | DX: G43.709 Chronic migraine without aura, not intractable, without status migrainosus (principal); M79.603 Pain in arm, unspecified; M79.606 Pain in leg, unspecified | CPT/HCPCS: 99202 ==

== ENCOUNTER 2024-11-09 08:42 | Outpatient (AMB) | payer OTHER, SELFPAY ==
--- OUTSIDE RECORDS SUMMARY | 2024-11-09 08:59 | XMS_ITS | Clinical Summary ---
Author Organization [facility] [address] [place] [address] [place] [phone] Phone Care Team Providers Care Chief Optometry Service Name Role Phone Obdulia Dewitt MD Primary Care Provider [phone] Allergies Active Allergy Reactions Criticality Noted Date Comments Oxycodone 02/20/2016 Encounters Date Type Department Care Team Description 10/16/2024 11:09 AM EDT - 10/16/2024 3:09 PM EDT Emergency [facility] [place] [facility] Emergency [address] [place] [phone] Ellis Sorensen MD Dizziness (Primary Dx); Hypothyroidism, [...] Signed Date: 10/16/2024 12:58 ET Workstation ID: [id number] Transcribed By: Self Edit Transcribed Date: 10/16/2024 [...] Signed Date: 10/16/2024 12:58 ET Workstation ID: [id number] Transcribed By: Self Edit Transcribed Date: 10/16/2024 12:58 ET us Ellis Sorensen MD IMG XR PROCEDURES Final R esult * 12-Lead ECG (10/16/2024 11:54 AM EDT) Ventricular Rate ECG 97 BPM GEMUSE Atrial Rate 97 BPM GEMUSE P-R Interval 124 ms GEMUSE QRS Duration 92 ms GEMUSE Q-T Interval 366 ms GEMUSE QTc 464 ms GEMUSE P Wave [place] 25 degrees GEMUSE R [place] -6 degrees GEMUSE T [place] 7 degrees GEMUSE ECG Interpretation Normal sinus [...] K/mcL LAB HEMETOLOGY METHOD 10/16/2024 10:48 AM [facility] RBC 4.70 3.80 - 4.80 M/mcL LAB HEMETOLOGY METHOD 10/16/2024 10:48 AM [facility] Hemoglobin 9.1(L) 11.5 - 16.0 g/dL LAB HEMETOLOGY METHOD 10/16/2024 10:48 AM [facility] Hematocrit 32.7(L) 35.0 - 47.0 % LAB HEMETOLOGY METHOD 10/16/2024 10:48 AM [facility] MCV 70.0(L) 79.0 - 98.0 FL LAB HEMETOLOGY METHOD 10/16/2024 10:48 AM [facility] MCH 19.5(L) 27.0 - 32.0 pcg LAB HEMETOLOGY METHOD 10/16/2024 10:48 AM [facility] MCHC 27.8(L) 32.0 - 37.0 g/dL LAB HEMETOLOGY METHOD 10/16/2024 10:48 AM [facility] RDW 16.1(H) 11.0 - 15.0 % LAB HEMETOLOGY METHOD 10/16/2024 10:48 AM [facility] Platelets 511(H) 130 - 400 K/mcL LAB HEMETOLOGY METHOD 10/16/2024 10:48 AM [facility] MPV 9.9 7.0 - 11.0 FL LAB HEMETOLOGY METHOD 10/16/2024 10:48 AM [facility] NRBC 0.0 <1.0 % LAB HEMETOLOGY METHOD 10/16/2024 10:48 AM [facility] NRBC Absolute 0.00 <0.10 K/mcL LAB HEMETOLOGY METHOD 10/16/2024 10:48 AM [facility] Neutrophils Relative 56.2 % LAB HEMETOLOGY METHOD 10/16/2024 10:48 AM [facility] Lymphocytes Relative 35.1 % LAB HEMETOLOGY METHOD 10/16/2024 10:48 AM [facility] Monocytes Relative 6.6 % LAB HEMETOLOGY METHOD 10/16/2024 10:48 AM [facility] Eosinophils Relative 1.3 % LAB HEMETOLOGY METHOD 10/16/2024 10:48 AM [facility] Basophils Relative 0.6 % LAB HEMETOLOGY METHOD 10/16/2024 10:48 AM [facility] Immature Granulocytes Relative 0.2 % LAB HEMETOLOGY METHOD 10/16/2024 10:48 AM [facility] Neutrophils Absolute 3.47 1.50 - 7.00 K/mcL LAB HEMETOLOGY METHOD 10/16/2024 10:48 AM [facility] Lymphocytes Absolute 2.17 1.00 - 5.00 K/mcL LAB HEMETOLOGY METHOD 10/16/2024 10:48 AM [facility] Monocytes Absolute 0.41 0.20 - 1.00 K/mcL LAB HEMETOLOGY METHOD 10/16/2024 10:48 AM [facility] Eosinophils Absolute 0.08 0.00 - 0.50 K/mcL LAB HEMETOLOGY METHOD 10/16/2024 10:48 AM [facility] Basophils Absolute 0.04 0.00 - 0.20 K/mcL LAB HEMETOLOGY METHOD 10/16/2024 10:48 AM [facility] Immature Granulocytes Absolute 0.01 0.00 - 0.03 K/mcL LAB HEMETOLOGY METHOD 10/16/2024 10:48 AM [facility] Blood Venous blood specimen / Unknown Venipuncture / Unknown 10/16/2024 9:46 AM EDT 10/16/2024 10:19 AM EDT us Ellis Sorensen MD LAB BLOOD ORDERABLES Elisa l Result Performing Organization Address [facility] Co de Phone Number [facility] [address] [place] [address], [place] [phone] * Type and screen (10/16/2024 9:46 AM EDT) ABO Group A 10/16/2024 11:14 AM EDT [facility] Rh Type Positive 10/16/2024 11:14 AM EDT [facility] Antibody Screen Negative 10/16/2024 11:14 AM EDT [facility] Blood Venous blood specimen / Unknown Venipuncture / Unknown 10/16/2024 9:46 AM EDT 10/16/2024 10:19 AM EDT us Ellis Sorensen MD LAB BLOOD BANK TEST ORDER MATTHEW Final Result Performing Organization Address [facility] Co de Phone Number [facility] [address] [place] [address], [place] [phone] * (ABNORMAL) Thyroid Stimulating Hormone (TSH) (10/16/2024 9:46 AM EDT) TSH 9.02(H) 0.40 - 4.00 mcIU/mL LAB CHEMISTRY METHOD 10/16/2024 2:47 PM EDT [facility] Blood Venous blood specimen / Unknown Venipuncture / Unknown 10/16/2024 9:46 AM EDT 10/16/2024 10:19 AM EDT us Ellis Sorensen MD LAB BLOOD ORDERABLES Elisa l Result [facility] [address] [place] [address], * (ABNORMAL) Basic metabolic panel (10/16/2024 9:46 AM EDT) Sodium 136 133 - 145 mmol/L LAB CHEMISTRY METHOD 10/16/2024 10:47 AM [facility] Potassium 4.1 3.5 - 5.5 mmol/L LAB CHEMISTRY METHOD 10/16/2024 10:47 AM [facility] Chloride 104 96 - 110 mmol/L LAB CHEMISTRY METHOD 10/16/2024 10:47 AM [facility] CO2 26 21 - 32 mmol/L LAB CHEMISTRY METHOD 10/16/2024 10:47 AM [facility] Anion Gap 6 3 - 11 LAB CHEMISTRY METHOD 10/16/2024 10:47 AM [facility] Glucose 112(H) 70 - 100 mg/dL LAB CHEMISTRY METHOD 10/16/2024 10:47 AM [facility] BUN 8 5 - 25 mg/dL LAB CHEMISTRY METHOD 10/16/2024 10:47 AM [facility] Creatinine 0.74 0.50 - 1.10 mg/dL LAB CHEMISTRY METHOD 10/16/2024 10:47 AM [facility] eGFR 112 >=60 mL/min/1. 73m2 LAB CHEMISTRY METHOD 10/16/2024 10:47 AM [facility] Comment:Calculation based on the??Chronic Kidney Disease Epidemiology Collaboration (CKD-EPI) equation refit??without adjustment for race. BUN/Creatinine Ratio 10.8 LAB CHEMISTRY METHOD 10/16/2024 10:47 AM [facility] Calcium 9.7 8.5 - 10.5 mg/dL LAB CHEMISTRY METHOD 10/16/2024 10:47 AM [facility] Blood Venous blood specimen / Unknown Venipuncture / Unknown 10/16/2024 9:46 AM EDT 10/16/2024 10:19 AM EDT us Ellis Sorensen MD LAB BLOOD ORDERABLES Elisa carrillo Result [facility] [address] [place] [address], from Last 3 Months Insurance [facility] [place] [address] Care Teams Chief Optometry Service Relationship Specialty Start Date End Date Obdulia Dewitt MD [address] [place] [phone] PCP - General Internal Medicine 10/16/24
--- NOTE | 2024-11-09 09:22 | A.OFFPC_ITS ---
Intake Visit Reasons: Discuss Meds Allergies oxycodone [OXYCODONE] Allergy (Intermediate, Verified 11/08/24 11:12) RASH, hives phentermine [From Fastin (phentermine)] Adverse Reaction (Severe, Verified 11/08/24 11:12) Chest Pain Medication List - Last Reconciled 11/09/24 by Obdulia Dewitt MD blood pressure kit-extra large As directed chlorhexidine gluconate 4% (Hibiclens) 1 appl topical TID PRN 2 doses cholestyramine (with sugar) 4 gram 4 grams PO DAILY 30 days ferrous sulfate 325 mg PO BID 90 days hydroxyzine HCl 25 mg PO BEDTIME 90 days ketoconazole 2% 1 appl topical 2XW 30 days levothyroxine 200 mcg PO DAILY magnesium oxide 400 mg PO BEDTIME 30 days metoprolol succinate ER 25 mg PO DAILY 90 days omeprazole 20 mg PO DAILY riboflavin (vitamin B2) 400 mg PO DAILY 30 days sennosides-docusate sodium 8.6-50 mg (Senna Plus) 2 tab-caps (2 x 8.6-50 mg) PO BEDTIME PRN 90 days sumatriptan succinate 50 - 100 mg orally at onset of headache, may repeat in 2 hrs PRN; max 2 tabs per day or 4 tabs/week (may take with Ibuprofen) 30 days Tobacco use date assessed: 04/20/24 Dental Screening Dental Screen Date: 04/20/24 HPI Discuss Meds HPI Details History - The patient is a 29-year-old female pr esenting with anemia. - The patient's hemoglobin level has dec reased from 11.4 in January to 9.1 currently, indicating significant progression of anemia. - She has a history of iron deficiency a nemia and has already initiated iron infusion treatments, with one completed and four more pending. - In addition to iron infusions, she is taking oral iron supplements and vitamin C to aid absorption. - The patient maintains a diet rich in p rotein to support blood health. - She underwent a miscarriage in January, which involved significant blee ding, potentially contributing to her current anemia. Problem List - Iron deficiency anemia - Thyroid disorder - Migraine headaches - Hypertension - Dyspepsia - Recent miscarriage - Obesity Patient Instructions - Continue attending all scheduled iron infusion appointments. - Avoid any breaks in treatment to ensur e stable hemoglobin levels and reduce stress on body organs. - Maintain a diet rich in protein and co ntinue vitamin C intake to support iron absorption. - Follow up for a blood test in [facility] to monitor hemoglobin levels. - Schedule an office visit for weight do cumentation and further discussions. - Keep taking current medications as pre scribed consistently. Review of Systems - General: No fever no chills - Neurological: No headaches no dizziness - Ear nose throat: No sore throat no hearing difficulty no ear pain - Cardiovascular: No syncope, no chest pain, no palpitations - Gastrointestinal: No nausea vomiting or diarrhea PFSH Medical History Iron deficiency anemia Low hemoglobin Pelvic pain Hospital discharge follow-up Surgical History Hx of section Hx laparoscopic cholecystectomy Family History Father Mental health disorder Mother Asthma Mental health disorder Maternal Grandmother Breast cancer Family/Other Colon cancer Brother Asthma Social History Household Members: None Housing: Apartment Alcohol intake: current Alcohol intake frequency: a few times a month Patient Tobacco Use Status: Never used Tobacco e-Cigarette/Vaping Use: Never Used service: No Current occupational status: unemployed Cognitive needs: No Hearing needs: No Vision needs: Yes Questionnaire Thrive Questionnaire Date Thrive assessed: 04/20/24 DG-7 AMB Questionnaire DG-7 Date DG - 7 assessed: 04/20/24 Source: Developed by Drs. Christiano Fairbanks, Veronica Chow, Heraclio Palencia and colleagues, with an educational onel from [employer]. Physical exam (Primary Care) Tobacco/Smoking Status: Tobacco use Status Tobacco use date assessed 04/20/24 11/09/24 09:23 Patient Tobacco Use Status Never used Tobacco 11/09/24 09:23 e-Cigarette/Vaping Use Never Used 11/09/24 09:23 Thrive Assessment: Date of Thrive Assessment Date Thrive assessed 04/20/24 11/09/24 09:23 Telehealth Telehealth Telehealth Platform: [facility] Location of provider rendering services: practice address Location of patient: address on file Patient Identification confirmed using: Name, : Yes Telehealth method: voice only Patient verbally consented to treatment: Yes Patient verbally consented to billing insurance company: Yes Patient informed of any privacy concerns related to visit: Yes Minutes spent on Phone/Video with Pt.: 13 Coding Level of Care Code Tele Est Pt Level 3 (68306) Diagnoses Iron deficiency anemia due to chronic blood loss D50.0 Iron deficiency anemia type: chronic blood loss Menorrhagia with regular cycle N92.0 Menorrhagia type: with regular cycle Other specified hypothyroidism E03.8 Recurrent major depressive disorder, in partial remission F33.41 Active/Remission status: in partial remission Chronic migraine without aura without status migrainosus, not intractable G43.709 Status migrainosus presence: without status migrainosus Intractability: not intractable Assessment & Plan Assessment & Plan (1) Iron deficiency anemia: Code(s): D50.9 - Iron deficiency anemia, unspecified Category: Medical Qualifiers: Iron deficiency anemia type: chronic blood loss Qualified Code(s): D50.0 - Iron deficiency anemia secondary to blood loss (chronic) (2) Heavy menses: Code(s): N92.0 - Excessive and frequent menstruation with regular cycle Category: Medical Qualifiers: Menorrhagia type: with regular cycle Qualified Code(s): N92.0 - Excessive and frequent menstruation with regular cycle (3) Other specified hypothyroidism: Code(s): E03.8 - Other specified hypothyroidism Category: Medical (4) Major depression, recurrent: Code(s): F33.9 - Major depressive disorder, recurrent, unspecified Category: Medical Qualifiers: Active/Remission status: in partial remission Qualified Code(s): F33.41 - Major depressive disorder, recurrent, in partial remission (5) Chronic migraine without aura: Code(s): G43.709 - Chronic migraine without aura, not intractable, without status migrainosus Category: Medical Qualifiers: Status migrainosus presence: without status migrainosus Intractability: not intractable Qualified Code(s): G43.709 - Chronic migraine without aura, not intractable, without status migrainosus Plan History - The patient is a 29-year-old female presenting with anemia. - The patient's hemoglobin level has decreased from 11.4 in January to 9.1 currently, indicating significant progression of anemia. - She has a history of iron deficiency anemia and has already initiated iron infusion treatments, with one completed and four more pending. - In addition to iron infusions, she is taking oral iron supplements and vitamin C to aid absorption. - The patient maintains a diet rich in protein to support blood health. - She underwent a miscarriage in January last year, which involved significant bleeding, potentially contributing to her current anemia. Problem List - Iron deficiency anemia - Thyroid disorder - Migraine headaches - Hypertension - Dyspepsia - Recent miscarriage - Obesity Patient Instructions - Continue attending all scheduled iron infusion appointments. - Avoid any breaks in treatment to ensure stable hemoglobin levels and reduce stress on body organs. - Maintain a diet rich in protein and continue vitamin C intake to support iron absorption. - Follow up for a blood test in four weeks to monitor hemoglobin levels. - Schedule an office visit for weight documentation and further discussions. - Keep taking current medications as prescribed consistently. Orders: Orders Ferritin Today D50.0 - Iron deficiency anemia secondary to blood loss (chronic), E03.8 - Other specified hypothyroidism, E66.01 - Morbid (severe) obesity due to excess calories Complete Blood Count Auto Diff Today D50.0 - Iron deficiency anemia secondary to blood loss (chronic), E03.8 - Other specified hypothyroidism, E66.01 - Morbid (severe) obesity due to excess calories Comprehensive Met. Panel Today D50.0 - Iron deficiency anemia secondary to blood loss (chronic), E03.8 - Other specified hypothyroidism, E66.01 - Morbid (severe) obesity due to excess calories TSH reflex Free T4 Today D50.0 - Iron deficiency anemia secondary to blood loss (chronic), E03.8 - Other specified hypothyroidism, E66.01 - Morbid (severe) obesity due to excess calories LDL Cholesterol Direct Today D50.0 - Iron deficiency anemia secondary to blood loss (chronic), E03.8 - Other specified hypothyroidism, E66.01 - Morbid (severe) obesity due to excess calories
== END 2024-11-09 09:44 | disposition home or self-care (01) ==
LOC: HO.HMCC 08:42
PROVIDERS: PCP Internal Medicine; Visit Provider Internal Medicine
DX: D50.0 Iron deficiency anemia secondary to blood loss (chronic) (principal); N92.0 Excessive and frequent menstruation with regular cycle; E03.8 Other specified hypothyroidism; F33.41 Major depressive disorder, recurrent, in partial remission; G43.709 Chronic migraine without aura, not intractable, without status migrainosus

== ENCOUNTER → 2024-11-09 08:42 | Outpatient (BNVA) | payer OTHER, SELFPAY | PROVIDERS: PCP Internal Medicine; Visit Provider Internal Medicine ==

== ENCOUNTER 2024-12-12 10:00 | Outpatient (RCR) | payer OTHER, SELFPAY ==
[2024-11-06 09:42] VITALS: BP 131/79; PULSE 90; RESP 16; TEMP 36.6; O2SAT 99
[2024-11-06] MEDS: Iron Sucrose Complex 200 MG in 0.9 % Sodium Chloride 100 ML 440 MG IV (09:49)
[2024-11-13 10:01] VITALS: BP 118/74; PULSE 104; RESP 16; TEMP 36.8; O2SAT 100
[2024-11-13] MEDS: Iron Sucrose Complex 200 MG in 0.9 % Sodium Chloride 100 ML 440 MG IV (10:08)
[2024-11-20 09:55] VITALS: BP 144/61; PULSE 80; RESP 16; TEMP 36.3; O2SAT 100
[2024-11-20] MEDS: Iron Sucrose Complex 200 MG in 0.9 % Sodium Chloride 100 ML 440 MG IV (10:00)
[2024-12-01 15:03] VITALS: BP 115/69; PULSE 96; RESP 16; TEMP 36.6; O2SAT 99
[2024-12-01] MEDS: Iron Sucrose Complex 200 MG in 0.9 % Sodium Chloride 100 ML 440 MG IV (15:10)
[2024-12-05 10:04] VITALS: BP 121/78; PULSE 100; RESP 18; TEMP 36.6; O2SAT 100
[2024-12-05] MEDS: Iron Sucrose Complex 200 MG in 0.9 % Sodium Chloride 100 ML 440 MG IV (10:11)
[2024-12-05] MEDS: 0.9 % Sodium Chloride Flush 10 ML SYRINGE 5 ML IVFLUSH (10:30)
[2024-12-12 09:56] VITALS: BP 133/53; PULSE 88; RESP 16; TEMP 36.6; O2SAT 99
[2024-12-12] MEDS: Iron Sucrose Complex 200 MG in 0.9 % Sodium Chloride 100 ML 440 MG IV (10:05)
[2024-12-12 10:17] LABS: Hematocrit 38.6 % (37.0-47.0); Hemoglobin 11.6 g/dl (12.0-16.0); Mean Corpuscular HGB Conc 30.1 g/dl (31.0-35.0); Mean Corpuscular Hemoglobin 22.7 pg (27.0-33.0); Mean Corpuscular Volume 75.7 fL (80.0-98.0); Mean Platelet Volume 9.4 fL (9.4-12.3); Platelet Count 366 X10*3/uL (160-400); Red Cell Distribution Width 23.3 % (11.0-16.0); White Blood Count 6.4 X10*3/uL (4.8-10.8)
[2024-12-12 10:50] LABS: Ferritin 107 ng/mL (10-122)
== END 2024-12-12 10:22 | disposition home or self-care (01) ==
LOC: HO.INF 10:00
PROVIDERS: PCP Internal Medicine; Visit Provider Nurse Practitioner Family
DX: D50.9 Iron deficiency anemia, unspecified (principal)
CPT/HCPCS: 36415; 82728; 85027; 96365; J1756

== ENCOUNTER 2025-01-09 09:04 | Outpatient (REF) | payer OTHER, SELFPAY ==
--- OUTSIDE RECORDS SUMMARY | 2025-01-09 09:24 | XMS_ITS | Clinical Summary ---
Author Organization [facility] [address] [place] [address] [place] [phone] Phone Care Team Providers Care Ancillary Services Manager Name Role Phone Obdulia Dewitt MD Primary Care Provider [phone] Allergies Active Allergy Reactions Criticality Noted Date Comments Oxycodone 02/20/2016 Encounters Date Type Department Care Team Description 10/16/2024 11:09 AM EDT - 10/16/2024 3:09 PM EDT Emergency [facility] Emergency [address] [place] [id number] Ellis Sorensen MD Dizziness (Primary Dx); Hypothyroidism, [...] 95 10/16/2024 2:38 PM EDT Temperature 37.1 C (98.8 F) 10/16/2024 2:38 PM EDT Respiratory Rate 20 10/16/2024 2:38 PM EDT [...] Influencers of Health Screening 07/07/2024 Influenza Vaccine (#1) 2025 04/07/2018 Hypertension/CHF/CAD Annual BMP Blood Test 10/16/2025 10/16/2024 [...] 5 Years) and At-Risk Patients (6 to 49 Years) Aged Out No longer eligi ble [...] 12:58 PM EDT FINDINGS/IMPRESSION: Low lung volumes. No consolidation or effusion. No congestive heart failure. -------- FINAL REPORT -------- Dictated By: Shae Meyers Dictated Date: 10/16/2024 12:58 ET Assigned Physician: Shae Meyers Reviewed and Electronically Signed By: Shae Meyers Signed Date: 10/16/2024 12:58 ET Workstation ID: [id number] Transcribed By: Self Edit Transcribed Date: 10/16/2024 [...] Signed Date: 10/16/2024 12:58 ET Workstation ID: [id number] Transcribed By: Self Edit Transcribed Date: 10/16/2024 12:58 ET Ellis Sorensen MD IMG XR PROCEDURES Final R esult * 12-Lead ECG (10/16/2024 11:54 AM EDT) Ventricular Rate ECG 97 BPM GEMUSE Atrial Rate 97 BPM GEMUSE P-R Interval 124 ms GEMUSE QRS Duration 92 ms GEMUSE Q-T Interval 366 ms GEMUSE QTc 464 ms GEMUSE P Wave [place] 25 degrees GEMUSE R [place] -6 degrees GEMUSE T [place] 7 degrees GEMUSE ECG Interpretation Normal sinus rhythm Borderline QT interval When compared with ECG of 07-AUG-2019 11:23, No significant change was found Confirmed by Zeus ENRIQUE YUFENG ([id number]) on 10/16/2024 7:24:31 PM GEMUSE 10/16/2024 11:5 4 AM EDT 10/16/2024 7:24 PM EDT Ellis Sorensen MD ECG ORDERABLES Final Res ult GEMUSE * (ABNORMAL) CBC auto differential (10/16/2024 9:46 AM EDT) WBC 6.2 4.8 - 10.8 K/mcL LAB HEMETOLOGY METHOD 10/16/2024 10:48 AM [facility] RBC 4.70 3.80 - 4.80 M/[facility] LAB HEMETOLOGY METHOD 10/16/2024 10:48 AM [facility] Hemoglobin 9.1(L) 11.5 - 16.0 g/dL LAB HEMETOLOGY METHOD 10/16/2024 10:48 AM [facility] Hematocrit 32.7(L) 35.0 - 47.0 % LAB HEMETOLOGY METHOD 10/16/2024 10:48 AM [facility] MCV 70.0(L) 79.0 - 98.0 FL LAB HEMETOLOGY METHOD 10/16/2024 10:48 AM [facility] MCH 19.5(L) 27.0 - 32.0 pcg LAB HEMETOLOGY METHOD 10/16/2024 10:48 AM [facility] MCHC 27.8(L) 32.0 - 37.0 g/dL LAB HEMETOLOGY METHOD 10/16/2024 10:48 AM [facility] RDW 16.1(H) 11.0 - 15.0 % LAB HEMETOLOGY METHOD 10/16/2024 10:48 AM [facility] Platelets 511(H) 130 - 400 K/[facility] LAB HEMETOLOGY METHOD 10/16/2024 10:48 AM [facility] MPV 9.9 7.0 - 11.0 FL LAB HEMETOLOGY METHOD 10/16/2024 10:48 AM [facility] NRBC 0.0 <1.0 % LAB HEMETOLOGY METHOD 10/16/2024 10:48 AM [facility] NRBC Absolute 0.00 <0.10 K/mcL LAB HEMETOLOGY METHOD 10/16/2024 10:48 AM [facility] Neutrophils Relative 56.2 % LAB HEMETOLOGY METHOD 10/16/2024 10:48 AM [facility] Lymphocytes Relative 35.1 % LAB HEMETOLOGY METHOD 10/16/2024 10:48 AM [facility] Monocytes Relative 6.6 % LAB HEMETOLOGY METHOD 10/16/2024 10:48 AM [facility] Eosinophils Relative 1.3 % LAB HEMETOLOGY METHOD 10/16/2024 10:48 AM [facility] Basophils Relative 0.6 % LAB HEMETOLOGY METHOD 10/16/2024 10:48 AM [facility] Immature Granulocytes Relative 0.2 % LAB HEMETOLOGY METHOD 10/16/2024 10:48 AM [facility] Neutrophils Absolute 3.47 1.50 - 7.00 K/mcL LAB HEMETOLOGY METHOD 10/16/2024 10:48 AM [facility] Lymphocytes Absolute 2.17 1.00 - 5.00 K/mcL LAB HEMETOLOGY METHOD 10/16/2024 10:48 AM [facility] Monocytes Absolute 0.41 0.20 - 1.00 K/mcL LAB HEMETOLOGY METHOD 10/16/2024 10:48 AM [facility] Eosinophils Absolute 0.08 0.00 - 0.50 K/mcL LAB HEMETOLOGY METHOD 10/16/2024 10:48 AM [facility] Basophils Absolute 0.04 0.00 - 0.20 K/mcL LAB HEMETOLOGY METHOD 10/16/2024 10:48 AM [facility] Immature Granulocytes Absolute 0.01 0.00 - 0.03 K/mcL LAB HEMETOLOGY METHOD 10/16/2024 10:48 AM [facility] Blood Venous blood specimen / Unknown Venipuncture / Unknown 10/16/2024 9:46 AM EDT 10/16/2024 10:19 AM EDT us Ellis Sorensen MD LAB BLOOD ORDERABLES Elisa l Result Performing Organization Address [facility] de Phone Number [facility] [address] [place] [address], [place] [phone] * Type and screen (10/16/2024 9:46 AM [...] ORDER MATTHEW Final Result Performing Organization Address [facility] de Phone Number [facility] [address] [place] [address], [place] [phone] * (ABNORMAL) Thyroid Stimulating Hormone (TSH) (10/16/2024 9:46 AM EDT) TSH 9.02(H) 0.40 - 4.00 mcIU/mL LAB CHEMISTRY METHOD 10/16/2024 2:47 PM EDT [facility] Blood Venous blood specimen / Unknown Venipuncture / Unknown 10/16/2024 9:46 AM EDT 10/16/2024 10:19 AM EDT us Ellis Sorensen MD LAB BLOOD ORDERABLES Elisa l Result Performing Organization Address City/[facility] Co de Phone Number [facility] [address] [place] [address], * (ABNORMAL) Basic metabolic panel (10/16/2024 9:46 AM EDT) Sodium 136 133 - 145 mmol/L LAB CHEMISTRY METHOD 10/16/2024 10:47 AM [facility] Potassium 4.1 3.5 - 5.5 mmol/L LAB CHEMISTRY METHOD 10/16/2024 10:47 AM [facility] Chloride 104 96 - 110 mmol/L LAB CHEMISTRY METHOD 10/16/2024 10:47 AM [facility] CO2 26 21 - 32 mmol/L LAB CHEMISTRY METHOD 10/16/2024 10:47 AM [facility] Anion Gap 6 3 - 11 LAB CHEMISTRY METHOD 10/16/2024 10:47 AM [facility] Glucose 112(H) 70 - 100 mg/dL LAB CHEMISTRY METHOD 10/16/2024 10:47 AM [facility] BUN 8 5 - 25 mg/dL LAB CHEMISTRY METHOD 10/16/2024 10:47 AM [facility] Creatinine 0.74 0.50 - 1.10 mg/dL LAB CHEMISTRY METHOD 10/16/2024 10:47 AM [facility] eGFR 112 >=60 mL/min/1. 73m2 LAB CHEMISTRY METHOD 10/16/2024 10:47 AM [facility] Comment:Calculation based on the Chronic Kidney Disease Epidemiology Collaboration (CKD-EPI) equation refit without adjustment for race. BUN/Creatinine Ratio 10.8 LAB CHEMISTRY METHOD 10/16/2024 10:47 AM [facility] Calcium 9.7 8.5 - 10.5 mg/dL LAB CHEMISTRY METHOD 10/16/2024 10:47 AM [facility] Blood Venous blood specimen / Unknown Venipuncture / Unknown 10/16/2024 9:46 AM EDT 10/16/2024 10:19 AM EDT us Ellis Sorensen MD LAB BLOOD ORDERABLES Elisa carrillo Result [facility] [address] [place] [address], from Last 3 Months Insurance [facility] [employer] PLAN Care Teams Ancillary Services Manager Relationship Specialty Start Date End Date Obdulia Dewitt MD [address] [place] [phone] PCP - General Internal Medicine 10/16/24
[2025-01-09 11:03] LABS: MANUAL DIFF FLAG NO
[2025-01-09 11:05] LABS: Hematocrit 40.7 % (37.0-47.0); Hemoglobin 12.7 g/dl (12.0-16.0); Imm Gran Abs Auto 0.02 X10*3/uL (0.00-0.03); Imm Gran Pct Auto 0.3 % (0.0-0.4); Lymphocytes Absolute Auto 1.7 X10*3/uL (1.2-4.9); Mean Corpuscular HGB Conc 31.2 g/dl (31.0-35.0); Mean Corpuscular Hemoglobin 24.3 pg (27.0-33.0); Mean Corpuscular Volume 78.0 fL (80.0-98.0); NRBC Abs Auto 0.000 X10*3/uL (0.0-0.012); NRBC Pct Auto 0.0 /100WBC (0.0-0.2); Platelet Count 367 X10*3/uL (160-400); Red Blood Count 5.22 X10*6/uL (4.20-5.50); White Blood Count 6.9 X10*3/uL (4.8-10.8)
[2025-01-09 11:44] LABS: Alanine Aminotransferase 13 U/L (0-31); Albumin Level 4.3 g/dL (3.5-5.0); Alkaline Phosphatase 64 U/L (39-117); Anion Gap 12 (12-20); Aspartate Amino Transferase 22 U/L (5-31); Blood Urea Nitrogen 10 mg/dL (9-16); Calcium 9.3 mg/dL (8.4-10.2); Carbon Dioxide 26 mmol/L (22-29); Chloride 105 mmol/L (96-108); Estimated Glomerular Filt Rate > 60; Potassium 3.6 mmol/L (3.3-5.1); Sodium 139 mmol/L (135-145); Total Protein 7.2 g/dL (6.5-8.0)
[2025-01-09 12:01] LABS: Ferritin 36 ng/mL (10-122)
== END 2025-01-09 09:05 | disposition home or self-care (01) ==
LOC: HO.HMGCLDS 09:04
PROVIDERS: PCP Internal Medicine; Visit Provider Internal Medicine
DX: D50.0 Iron deficiency anemia secondary to blood loss (chronic) (principal); E03.8 Other specified hypothyroidism; E66.01 Morbid (severe) obesity due to excess calories
CPT/HCPCS: 36415; 80053; 82728; 83721; 84443; 85025

== ENCOUNTER 2025-01-10 11:51 | Outpatient (AMB) | payer OTHER, SELFPAY ==
--- NOTE | 2025-01-10 11:53 | A.OFFPC_ITS ---
Vital Signs 01/10/25 11:54 Height 5 ft 2 in Weight 271 lb 6 oz BMI 49.6 BP 123/78 Blood Pressure Location Rt brachial Position Sitting Pulse 102 H Pulse Source Pulse Oximeter Temp 97.3 F Temp Source Temporal Artery Scan Pulse Oximetry (%) 99 Oxygen Delivery Method Room Air Intake Visit Reasons: 2 Month f/up English Professor Required: No Is last menstrual period known: Yes Last menstrual period: 12/31/24 Post menopausal: No Patient : No Allergies oxycodone (OXYCODONE) Allergy (Intermediate, Verified 01/10/25 11:57) RASH, hives phentermine (From Fastin (phentermine)) Adverse Reaction (Severe, Verified 01/10/25 11:57) Chest Pain Medication List - Last Reconciled 01/10/25 by Obdulia Dewitt MD blood pressure kit-extra large As directed chlorhexidine gluconate 4% (Hibiclens) 1 appl topical TID PRN 2 doses cholestyramine (with sugar) 4 gram 4 grams PO DAILY 30 days ferrous sulfate 325 mg PO BID 90 days hydroxyzine HCl 25 mg PO BEDTIME 90 days ketoconazole 2% 1 appl topical 2XW 30 days levothyroxine 200 mcg PO DAILY metoprolol succinate ER 25 mg PO DAILY 90 days omeprazole 20 mg PO DAILY riboflavin (vitamin B2) 400 mg PO DAILY 30 days sennosides-docusate sodium 8.6-50 mg (Senna Plus) 2 tab-caps (2 x 8.6-50 mg) PO BEDTIME PRN 90 days Tobacco use date assessed: 01/10/25 Dental Screening Dental Screen Date: 01/10/25 Did you have a dental visit in the last 12 months?: Yes Did you have a dental problem in the last 6 months where you did not have access to dental care?: No Was dental information given to patient?: Patient has dentist HPI 2 Month f/up HPI Details History - The patient is a 29-year-old female pr esenting with weight management concerns and elevated glucose levels. - The patient reported a weight of 271 p ounds, with a previous weight of 276 pounds in November, indicating a loss of 5 pounds. - She has a history of changing eating h abits to aid weight loss and previously considered medications such as phentermine but she developed chest pains and Wegovy, but did not start Wegovy due to and subsequent loss. - The patient mentioned a recent blood g lucose level, described as slightly elevated, observed in yesterday's blood work. but its random glucose of 120, patient was reassured Medical History: - Hypertension, currently managed with M etoprolol - Hypothyroidism Medications: - Metoprolol for hypertension Social History: - The patient is actively working on rose ght management through dietary changes and lifestyle adjustments. - Mentioned recent attempts to modify ea ting habits as part of weight loss efforts. Family History: - Sister has thyroid issues and severe a nxiety Diagnostic Results: - Labs: Random glucose level was 120, co nsidered normal. Problem List - Essential Hypertension - Hypothyroidism - Difficulties with weight management Patient Instructions - Contact the pharmacy to confirm covera ge for the prescription sent today. Zepbound inj - Call the provided weight loss clinic [facility] to book an appointment for additional support. Review of Systems - General: No fever no chills - Neurological: No headaches no dizziness - Ear nose throat: No sore throat no hearing difficulty no ear pain - Cardiovascular: No syncope, no chest pain, no palpitations - Gastrointestinal: No nausea vomiting or diarrhea - Endocrine: No polyuria polydipsia no heat intolerance - Genitourinary: No dysuria , no blood in urine Physical Exam - General: No acute distress - HEENT: No acute findings - Neck: Supple - Respiratory system: Able to talk in f ull sentences, no audible wheeze - Cardiovascular: S1-S2 regular in rate and rhythm - Gastrointestinal: No pain - Extremities: No new findings - POSTAL SORTING OFFICER: Alert awake oriented x3 motor se nsory intact - Skin: Normal turgor PFSH Medical History Iron deficiency anemia Low hemoglobin Pelvic pain Hospital discharge follow-up Surgical History Hx of section Hx laparoscopic cholecystectomy Family History Father Mental health disorder Mother Asthma Mental health disorder Maternal Grandmother Breast cancer Family/Other Colon cancer Brother Asthma Social History Household Members: None Housing: Apartment Alcohol intake: current Alcohol intake frequency: a few times a month Patient Tobacco Use Status: Never used Tobacco e-Cigarette/Vaping Use: Never Used Patient : No service: No Current occupational status: unemployed Cognitive needs: No Hearing needs: No Vision needs: Yes Female Reproductive History Menstrual Date of last menstrual period: 12/31/24 Questionnaire PHQ-9 Over the last 2 weeks, how often have you been bothered by any of the following problems? 1. Little interest or pleasure in doing things: several days 2. Feeling down, depressed, or hopeless: several days 3. Trouble falling or staying asleep, or sleeping too much: several days 4. Feeling tired or having little energy: several days 5. Poor appetite or overeating: more than half the days 6. Feeling bad about yourself - or that you are a failure or have let yourself or your family down: not at all 7. Trouble concentrating on things, such as reading the newspaper or watching television: more than half the days 8. Moving or speaking so slowly that other people could have noticed. Or the opposite - being so fidgety or restless that you have been moving around a lot more than usual: several days 9. Thoughts that you would be better off or of hurting yourself in some way: not at all Total score: 9 Depression Screening Interpretation: Positive Depression Screening Follow-up: Existing condition and In treatment Depression Screening Done: Yes 24069 - PHQ-9 Billing: Yes Source: Developed by Drs. Christiano Fairbanks, Veronica Chow, Heraclio Palencia and colleagues, with an educational onel from [employer]. Thrive Questionnaire Date Thrive assessed: 01/10/25 I am a: Patient What is your living situation today?: I have a steady place to live Within the past 12 months, did the food you bought not last and you didn't have the money to get more?: Never true Within the past 12 months, did you worry whether your food would run out before you got money to buy more?: Never true Do you have trouble paying for medicines?: No Do you have trouble getting transportation to medical appointments?: Yes Do you have trouble paying your heating and electricity bill?: No Do you have trouble taking care of your child, family member or friend?: No Do you have trouble with day-to-day activities such as bathing, preparing meals, shopping, managing finances, etc.?: No Are you currently unemployed and looking for a job?: Yes Are you interested in more education?: Yes Please select the resources that you would like help with: Childcare, Job search/training and Education Currently or been in a relationship where the following occur: No concerns reported THRIVE Score: 1 AUDIT C Alcohol Use Questionnaire (AUDIT-C) 1. How often do you have a drink containing alcohol?: Never Total Score: 0 DG-7 AMB Questionnaire DG-7 Date DG - 7 assessed: 04/20/24 Feeling nervous, anxious, or on edge: 2 = More than half the days Not being able to stop or control worryin = More than half the days Worrying too much about different things: 1 = Several days Trouble relaxin = Several days Being so restless that it is hard to sit still: 2 = More than half the days Becoming easily annoyed or irritable: 1 = Several days Feeling afraid as if something awful might happen: 1 = Several days Total DG-7 score (0-4 normal; 5-9 mild; 10-14 moderate; 15-21 severe): 10 Source: Developed by Drs. Christiano Fairbanks, Veronica Chow, Heraclio Palencia and colleagues, with an educational onel from [employer]. Physical exam (Primary Care) Vital Signs: Last Vital Signs Temp 97.3 F 01/10/25 11:54 Pulse 102 H 01/10/25 11:54 BP 123/78 01/10/25 11:54 Pulse Ox 99 01/10/25 11:54 Oxygen Delivery Method Room Air 01/10/25 11:54 BMI result Body Mass Index 49.6 Tobacco/Smoking Status: Tobacco use Status Tobacco use date assessed 01/10/25 01/10/25 12:01 Patient Tobacco Use Status Never used Tobacco 01/10/25 12:01 e-Cigarette/Vaping Use Never Used 01/10/25 12:01 PHQ-9: PHQ-9 Score PHQ-9: Total score 9 01/10/25 12:13 Depression Screening Interpretation: Positive Depression Screening Follow-up: Existing condition and In treatment Thrive Assessment: Date of Thrive Assessment Date Thrive assessed 01/10/25 01/10/25 12:01 Currently or been in a relationship where the following occur: No concerns reported Coding Level of Care Code Est Pt Level 3 (71150) Diagnoses Morbid obesity due to excess calories E66.01 Hypertension, essential I10 Other specified hypothyroidism E03.8 Additional Codes PHQ-9 - 89832 - PHQ-9 Billing: Yes ([id number]) Assessment & Plan Assessment & Plan (1) Morbid obesity due to excess calories: Code(s): E66.01 - Morbid (severe) obesity due to excess calories Category: Medical (2) Hypertension, essential: Code(s): I10 - Essential (primary) hypertension Category: Medical (3) Other specified hypothyroidism: Code(s): E03.8 - Other specified hypothyroidism Category: Medical Plan History - The patient is a 29-year-old female presenting with weight management concerns and elevated glucose levels. - The patient reported a weight of 271 pounds, with a previous weight of 276 pounds in November, indicating a loss of 5 pounds. - She has a history of changing eating habits to aid weight loss and previously considered medications such as phentermine but she developed chest pains and Wegovy, but did not start Wegovy due to and subsequent loss. - The patient mentioned a recent blood glucose level, described as slightly elevated, observed in yesterday's blood work. but its random glucose of 120, patient was reassured Medical History: - Hypertension, currently managed with Metoprolol - Hypothyroidism Medications: - Metoprolol for hypertension Social History: - The patient is actively working on weight management through dietary changes and lifestyle adjustments. - Mentioned recent attempts to modify eating habits as part of weight loss efforts. Family History: - Sister has thyroid issues and severe anxiety Diagnostic Results: - Labs: Random glucose level was 120, considered normal. Problem List - Essential Hypertension - Hypothyroidism - Difficulties with weight management Patient Instructions - Contact the pharmacy to confirm coverage for the prescription sent today. Zepbound inj - Call the provided weight loss clinic number to book an appointment for additional support. Orders: Referrals Bariatric Surgery Referral E66.01 - Morbid (severe) obesity due to excess calories Medications: New Zepbound (tirzepatide (weight loss)) for 4 weeks 2.5 mg (0.5 mL) subcut QWEEK 2 mL 0RF NS E66.01 - Morbid (severe) obesity due to excess calories Zepbound (tirzepatide (weight loss)) for 4 weeks 2.5 mg (0.5 mL) subcut QWEEK 2 mL 0RF NS E66.01 - Morbid (severe) obesity due to excess calories, I10 - Essential (primary) hypertension
[2025-01-10 11:54] VITALS: BP 123/78; PULSE 102; TEMP 36.3; O2SAT 99; BMI 49.6
--- OUTSIDE RECORDS SUMMARY | 2025-01-10 13:02 | XMS_ITS | Clinical Summary ---
Author Organization [facility] [address] [place] [address] [place] [phone] Phone Care Team Providers Care Chute Loader Name Role Phone Obdulia Dewitt MD Primary Care Provider [phone] Allergies Active Allergy Reactions Criticality Noted Date Comments Oxycodone 02/20/2016 Encounters Date Type Department Care Team Description 10/16/2024 11:09 AM EDT - 10/16/2024 3:09 PM EDT Emergency [facility] Emergency [address] [place] [id number] Ellis Sorensen MD Dizziness (Primary Dx); Hypothyroidism, [...] Signed Date: 10/16/2024 12:58 ET Workstation ID: [id number] Transcribed By: Self Edit Transcribed Date: 10/16/2024 [...] Signed Date: 10/16/2024 12:58 ET Workstation ID: [id number] Transcribed By: Self Edit Transcribed Date: 10/16/2024 12:58 ET Ellis Sorensen MD IMG XR PROCEDURES Final R esult * 12-Lead ECG (10/16/2024 11:54 AM EDT) Ventricular Rate ECG 97 BPM GEMUSE Atrial Rate 97 BPM GEMUSE P-R Interval 124 ms GEMUSE QRS Duration 92 ms GEMUSE Q-T Interval 366 ms GEMUSE QTc 464 ms GEMUSE P Wave [place] 25 degrees GEMUSE R [place] -6 degrees GEMUSE T [place] 7 degrees GEMUSE ECG Interpretation Normal sinus [...] HOSPITAL LAB RBC 4.70 3.80 - 4.80 M/[facility] HEMETOLOGY METHOD 10/16/2024 10:48 AM [place] [...] HOSPITAL LAB Platelets 511(H) 130 - 400 K/[facility] HEMETOLOGY METHOD 10/16/2024 10:48 AM [place] [...] ORDERABLES Elisa l Result Performing Organization Address [facility] de Phone Number [facility] [address] [place] [address], [place] [phone] * Type and screen (10/16/2024 9:46 AM [...] ORDER MATTHEW Final Result Performing Organization Address [facility] de Phone Number [facility] [address] [place] [address], [place] [phone] * (ABNORMAL) Thyroid Stimulating Hormone (TSH) (10/16/2024 9:46 AM EDT) TSH 9.02(H) 0.40 - 4.00 mcIU/mL LAB CHEMISTRY METHOD 10/16/2024 2:47 PM EDT [facility] Blood Venous blood specimen / Unknown Venipuncture / Unknown 10/16/2024 9:46 AM EDT 10/16/2024 10:19 AM EDT us Ellis Sorensen MD LAB BLOOD ORDERABLES Elisa l Result Performing Organization Address City/[facility] Co de Phone Number [facility] [address] [place] [address], * (ABNORMAL) Basic metabolic panel (10/16/2024 9:46 [...] [facility] Comment:Calculation based on the Chronic [...] LAB BLOOD ORDERABLES Elisa carrillo Result [facility] [address] [place] [address], from Last 3 Months Insurance [facility] Dis[employer] PLAN Care Teams Chute Loader Relationship Specialty Start Date End Date Obdulia Dewitt MD [address] [place] [id number] PCP - General Internal Medicine 10/16/24
== END 2025-01-10 13:45 | disposition home or self-care (01) ==
LOC: HO.HMCC 11:52
PROVIDERS: PCP Internal Medicine; Visit Provider Internal Medicine
DX: I10 Essential (primary) hypertension (principal); E66.01 Morbid (severe) obesity due to excess calories; E03.8 Other specified hypothyroidism; Z68.42 Body mass index [BMI] 45.0-49.9, adult

== ENCOUNTER → 2025-01-10 11:51 | Outpatient (BNVA) | payer OTHER, SELFPAY | PROVIDERS: PCP Internal Medicine; Visit Provider Internal Medicine | DX: I10 Essential (primary) hypertension (principal); E66.01 Morbid (severe) obesity due to excess calories; E03.8 Other specified hypothyroidism; Z68.42 Body mass index [BMI] 45.0-49.9, adult | CPT/HCPCS: 96127; 99212 ==

== ENCOUNTER 2025-02-14 10:58 | Outpatient (AMB) | payer OTHER, SELFPAY ==
--- NOTE | 2025-02-14 11:00 | A.OFFPC_ITS ---
Vital Signs 02/14/25 11:01 Height 5 ft 2 in Weight 272 lb BMI 49.7 BP 130/72 Blood Pressure Location Lt brachial Position Sitting Pulse 102 H Pulse Source Pulse Oximeter Pulse Oximetry (%) 98 Intake Visit Reasons: weight loss follow up Allergies oxycodone (OXYCODONE) Allergy (Intermediate, Verified 02/14/25 11:02) RASH, hives phentermine (From Fastin (phentermine)) Adverse Reaction (Severe, Verified 02/14/25 11:02) Chest Pain prednisone Adverse Reaction (Intermediate, Verified 02/14/25 11:14) Anxiety Medication List - Last Reconciled 02/14/25 by Obdulia Dewitt MD blood pressure kit-extra large As directed chlorhexidine gluconate 4% (Hibiclens) 1 appl topical TID PRN 2 doses cholestyramine (with sugar) 4 gram 4 grams PO DAILY 30 days ferrous sulfate 325 mg PO BID 90 days hydroxyzine HCl 25 mg PO BEDTIME 90 days ketoconazole 2% 1 appl topical 2XW 30 days levothyroxine 200 mcg PO DAILY metoprolol succinate ER 25 mg PO DAILY 90 days omeprazole 20 mg PO DAILY riboflavin (vitamin B2) 400 mg PO DAILY 30 days sennosides-docusate sodium 8.6-50 mg (Senna Plus) 2 tab-caps (2 x 8.6-50 mg) PO BEDTIME PRN 90 days Zepbound (tirzepatide (weight loss)) 2.5 mg (0.5 mL) subcut QWEEK NS Tobacco use date assessed: 01/10/25 Dental Screening Dental Screen Date: 01/10/25 HPI weight loss follow up HPI Details Chief Complaint The patient presents with anxiety and questions about missed injections. History of Present Illness The patient is a 29 year old female presenting with anxiety management concerns and difficulties related to ongoing treatment. Anxiety: - The patient has a long history of anxi ety, which she has been managing with breathing techniques and hydroxyzine. - Recently experienced exacerbations fol lowing the administration of steroids (prednisone), leading to multiple visits to the hospital with anxiety attacks. - The anxiety worsened after starting ne w injections suspected to be Zepbound, resulting in feelings of nausea and fear of taking subsequent doses. - Describes previously experiencing epis odes leading to emergency calls due to the perception of severe distress or feeling like dying. Injection Concerns: - Initiated treatment with injections on . - Did not take the injection scheduled or the due to hospitalization from an anxiety attack and has since avoided further doses due to apprehension related to previous adverse reactions. Medical History: - Longstanding anxiety, currently manage d with hydroxyzine and planning to start fluoxetine and trazodone. Through psychiatrist - History of treatment with phentermine for unspecified duration. Caused chest pain Medications: - Hydroxyzine for anxiety, taken during the day for relief - Fluoxetine was prescribed for anxiety, yet to be started - Trazodone prescribed for nighttime use but not started Social History: - Reports significant weight concern; mimi stock weighs approximately 264 pounds with fluctuations noted. - No consumption of coffee, tea, or caff eine. Diagnostic Results: - Previous emergency room visit included EKGs with normal results. - Lungs and heart problems were ruled ou t in emergency assessments. Problem List - Anxiety ongoing problem before the Ze pbound - Concerns regarding steroid-induced anx iety reactions - Concerns regarding medication (injecti ons) adherence Patient Instructions - Start fluoxetine for anxiety as prescr ibed. - Introduce trazodone after three days i f no adverse effects from fluoxetine. - Resume Zepbound injections as discusse d. - Utilize lorazepam for breakthrough anx iety episodes, ensuring to abstain from driving after consumption. - Return in one month for follow-up. Review of Systems - General: No fever no chills - Neurological: No headaches no dizziness - Ear nose throat: No sore throat no hearing difficulty no ear pain - Cardiovascular: No syncope - Gastrointestinal: No nausea vomiting or diarrhea - Endocrine: No polyuria polydipsia no heat intolerance - Genitourinary: No dysuria , no blood in urine Physical Exam General: No acute distress HEENT: No acute findings Neck: Supple Respiratory system: Able to talk in full sentences, no audible wheeze Cardiovascular: S1-S2 regular in rate and rhythm Gastrointestinal: No pain, but patient reports diarrhea Extremities: No new findings [employer]: Alert awake oriented x3 motor sensory intact Skin: Normal turgor PFSH Medical History Iron deficiency anemia Low hemoglobin Pelvic pain Hospital discharge follow-up Surgical History Hx of section Hx laparoscopic cholecystectomy Family History Father Mental health disorder Mother Asthma Mental health disorder Maternal Grandmother Breast cancer Family/Other Colon cancer Brother Asthma Social History Household Members: None Housing: Apartment Alcohol intake: current Alcohol intake frequency: a few times a month Patient Tobacco Use Status: Never used Tobacco e-Cigarette/Vaping Use: Never Used service: No Current occupational status: unemployed Cognitive needs: No Hearing needs: No Vision needs: Yes Questionnaire Thrive Questionnaire Date Thrive assessed: 01/10/25 I am a: Patient What is your living situation today?: I have a steady place to live Within the past 12 months, did the food you bought not last and you didn't have the money to get more?: Never true Within the past 12 months, did you worry whether your food would run out before you got money to buy more?: Never true Do you have trouble paying for medicines?: No Do you have trouble getting transportation to medical appointments?: Yes Do you have trouble paying your heating and electricity bill?: No Do you have trouble taking care of your child, family member or friend?: No Do you have trouble with day-to-day activities such as bathing, preparing meals, shopping, managing finances, etc.?: No Are you currently unemployed and looking for a job?: Yes Are you interested in more education?: Yes Currently or been in a relationship where the following occur: No concerns reported THRIVE Score: 1 DG-7 AMB Questionnaire DG-7 Date DG - 7 assessed: 02/14/25 Feeling nervous, anxious, or on edge: 2 = More than half the days Not being able to stop or control worryin = More than half the days Worrying too much about different things: 1 = Several days Trouble relaxin = Several days Being so restless that it is hard to sit still: 2 = More than half the days Becoming easily annoyed or irritable: 1 = Several days Feeling afraid as if something awful might happen: 1 = Several days Total DG-7 score (0-4 normal; 5-9 mild; 10-14 moderate; 15-21 severe): 10 Source: Developed by Drs. Christiano Fairbanks, Veronica Chow, Heraclio Palencia and colleagues, with an educational onel from [employer] DG-7 Assessment Billing DG-7 Assessment Tool: DG-7 Assessment 73637 Physical exam (Primary Care) Vital Signs: Last Vital Signs Pulse 102 H 02/14/25 11:01 BP 130/72 02/14/25 11:01 Pulse Ox 98 02/14/25 11:01 BMI result Body Mass Index 49.7 Tobacco/Smoking Status: Tobacco use Status Tobacco use date assessed 01/10/25 02/14/25 11:00 Patient Tobacco Use Status Never used Tobacco 02/14/25 11:00 e-Cigarette/Vaping Use Never Used 02/14/25 11:00 Thrive Assessment: Date of Thrive Assessment Date Thrive assessed 01/10/25 02/14/25 11:00 Currently or been in a relationship where the following occur: No concerns reported Coding Level of Care Code Est Pt Level 4 (10329) Complex EM visit Add On G2211 Diagnoses Morbid obesity due to excess calories E66.01 Recurrent major depressive disorder, in partial remission F33.41 Active/Remission status: in partial remission Binge-eating disorder, moderate F50.81 Anxiety disorder with panic attacks F41.9 Additional Codes DG-7 Assessment Billing - DG-7 Assessment Tool: DG-7 Assessment 62911 ([id number]) Assessment & Plan Assessment & Plan (1) Morbid obesity due to excess calories: Code(s): E66.01 - Morbid (severe) obesity due to excess calories Category: Medical (2) Major depression, recurrent: Code(s): F33.9 - Major depressive disorder, recurrent, unspecified Category: Medical Qualifiers: Active/Remission status: in partial remission Qualified Code(s): F33.41 - Major depressive disorder, recurrent, in partial remission (3) Binge-eating disorder, moderate: Code(s): F50.81 - Binge eating disorder Category: Medical (4) Anxiety disorder with panic attacks: Code(s): F41.9 - Anxiety disorder, unspecified Category: Medical Plan Chief Complaint The patient presents with anxiety and questions about missed injections. History of Present Illness The patient is a 29 year old female presenting with anxiety management concerns and difficulties related to ongoing treatment. Anxiety: - The patient has a long history of anxiety, which she has been managing with breathing techniques and hydroxyzine. - Recently experienced exacerbations following the administration of steroids (prednisone), leading to multiple visits to the hospital with anxiety attacks. - The anxiety worsened after starting new injections suspected to be Zepbound, resulting in feelings of nausea and fear of taking subsequent doses. - Describes previously experiencing episodes leading to emergency calls due to the perception of severe distress or feeling like dying. Injection Concerns: - Initiated treatment with injections on . - Did not take the injection scheduled for the due to hospitalization from an anxiety attack and has since avoided further doses due to apprehension related to previous adverse reactions. Medical History: - Longstanding anxiety, currently managed with hydroxyzine and planning to start fluoxetine and trazodone. Through psychiatrist - History of treatment with phentermine for unspecified duration. Caused chest pain Medications: - Hydroxyzine for anxiety, taken during the day for relief - Fluoxetine was prescribed for anxiety, yet to be started - Trazodone prescribed for nighttime use but not started Social History: - Reports significant weight concern; currently weighs approximately 264 pounds with fluctuations noted. - No consumption of coffee, tea, or caffeine. Diagnostic Results: - Previous emergency room visit included EKGs with normal results. - Lungs and heart problems were ruled out in emergency assessments. Problem List - Anxiety ongoing problem before the Zepbound - Concerns regarding steroid-induced anxiety reactions - Concerns regarding medication (injections) adherence Patient Instructions - Start fluoxetine for anxiety as prescribed. - Introduce trazodone after three days if no adverse effects from fluoxetine. - Resume Zepbound injections as discussed. - Utilize lorazepam for breakthrough anxiety episodes, ensuring to abstain from driving after consumption. - Return in one month for follow-up. Medications: New lorazepam 0.5 mg PO .qd PRN 14 tabs 0RF anxiety 30 days Refilled Zepbound (tirzepatide (weight loss)) for 4 weeks 2.5 mg (0.5 mL) subcut QWEEK 2 mL 0RF NS E66.01 - Morbid (severe) obesity due to excess calories, I10 - Essential (primary) hypertension
[2025-02-14 11:01] VITALS: BP 130/72; PULSE 102; O2SAT 98; BMI 49.7
--- OUTSIDE RECORDS SUMMARY | 2025-02-14 11:53 | XMS_ITS | Clinical Summary ---
Author Organization [facility] [address] [place] [address] [place] [phone] Phone Care Team Providers Care Ticket Writer Name Role Phone Obdulia Dewitt MD Primary Care Provider [phone] Allergies Active Allergy Reactions Criticality Noted Date Comments Oxycodone 02/20/2016 Medications albuterol HFA (PROAIR HFA ; PROVENTIL HFA ; VENTOLIN HFA) 90 mcg/actuation inhaler Inhale 2 puffs by mouth every 4 (four) hours if needed for wheezing. 8 g 02/01/2025 03/03/20 25 Active hydrOXYzine HCL (ATARAX) 25 mg tablet Take 1 tablet (25 mg total) by mouth every 8 (eight) hours if needed for anxiety for up to 20 doses. 12 tablet 02/02/2025 Active predniSONE (DELTASONE) 20 mg tablet Take 3 tablets (60 mg total) by mouth 1 (one) time each day for 5 days. 15 each 02/01/2025 02/07/20 25 Active Problems No known active problems Encounters Date Type Department Care Team Description 02/04/2025 7:43 PM EDT - 02/04/2025 10:27 PM EDT Emergency [facility] Emergency [address] [place] [id number] Generalized anxiety disorder (Primary Dx); Anxiety Discharge Disposition: Home or Self Care 02/02/2025 7:41 PM EDT - 02/02/2025 10:57 PM EDT Emergency [facility] Emergency [address] [place] [address] Bo Espino MD Anxiety (Primary Dx); Palpitation Discharge Disposition: Home or Self Care 01/31/2025 9:56 PM EDT - 02/01/2025 1:17 AM EDT Emergency [facility] Emergency [address] [place] [address] Pato Benitez MD Shortness of breath (Primary Dx) Discharge Disposition: Home or Self Care from Last 3 Months Surgical History Surgery Date Site/Laterality Comments SECTION 2016 PROCEDURE: HISTORICAL Medical History Medical History Date [...] Sign Reading Time Taken Comments Blood Pressure 103/67 02/04/2025 7:52 PM EDT Pulse 88 02/04/2025 9:25 PM EDT Temperature 37.2 C (99 F) 02/04/2025 8:18 PM EDT Respiratory Rate 19 02/04/2025 8:18 PM EDT Oxygen Saturation 100% 02/04/2025 9:25 PM EDT Inhaled Oxygen Concentration - - Weight 121 kg (267 lb) 02/02/2025 8:09 PM EDT Height 157.5 cm (5' 2 ) 02/02/2025 8:09 PM EDT Body Mass Index 48.83 02/02/2025 8:09 PM EDT Plan of Treatment Health Maintenance Due Date Last Done Comments Hepatitis B Vaccines (1 of 3 - 19+ 3-dose series) 2013 Cervical Cancer Screening: Pap Smear 2015 COVID-19 Vaccine ( season) 2024 Depression Screening 07/05/2024 Cholesterol Screening (Lipid Panel) 07/07/2024 HIV Screening 07/07/2024 Hepatitis C Screening 07/07/2024 Social Influencers of Health Screening 07/07/2024 Influenza Vaccine (#1) 2025 04/07/2018 Hypertension/CHF/CAD Annual BMP Blood Test 02/04/2026 02/04/2025, 02/02/2025, 01/31/2025, Additional history exists DTaP,Tdap,and Td Vaccines (2 - Tdap) 08/29/2028 [...] age to complete this topic Pneumococcal Vaccine: Pediatrics (0 to 5 Years) and At-Risk Patients (6 to 49 Years) Aged Out No longer eligible based on patient's age to complete this topic RSV Immunization Patients Under 20 months Aged Out No longer eligible based on patient's age to complete this topic Varicella Vaccines Aged Out No longer eligible based on patient's age to complete this topic Procedures Procedure Name Priority Date/Time Associated Diagnosis Comments ECG ANNOTATED 02/05/2025 DRUG ABUSE SCREEN 8A PANEL, URINE STAT 02/04/2025 9:16 PM EDT CBC WITH AUTO DIFFERENTIAL STAT 02/04/2025 8:06 PM EDT HCG, SERUM, QUALITATIVE STAT 02/04/2025 8:06 PM EDT CBC AND DIFFERENTIAL STAT 02/04/2025 8:06 PM EDT MAGNESIUM STAT 02/04/2025 8:06 PM EDT COMPREHENSIVE METABOLIC PANEL STAT 02/04/2025 8:06 PM EDT THYROXINE FREE STAT 02/04/2025 8:06 PM EDT THYROID STIMULATING HORMONE STAT 02/04/2025 8:06 PM EDT ECG 12-LEAD STAT 02/04/2025 8:00 PM EDT ECG ANNOTATED 02/03/2025 CBC WITH AUTO DIFFERENTIAL STAT 02/02/2025 8:10 PM EDT TROPONIN I HIGH SENSITIVITY STAT 02/02/2025 8:10 PM EDT CBC AND DIFFERENTIAL STAT 02/02/2025 8:10 PM EDT BASIC METABOLIC PANEL STAT 02/02/2025 8:10 PM EDT ECG 12-LEAD STAT 02/02/2025 8:07 PM EDT XR CHEST 2 VIEWS STAT 02/01/2025 12:0 7 AM EDT ECG ANNOTATED 02/01/2025 CBC WITH AUTO DIFFERENTIAL STAT 01/31/2025 11:04 PM EDT B-TYPE NATRIURETIC PEPTIDE STAT 01/31/2025 11:04 PM EDT BASIC METABOLIC PANEL STAT 01/31/2025 11:04 PM EDT CBC AND DIFFERENTIAL STAT 01/31/2025 11:04 PM EDT ECG 12-LEAD STAT 01/31/2025 10:35 PM EDT from Last 3 Months Results * ECG-Annotated (02/05/2025) Only the most recent of3 resultswithin the time period is included. us Provider Onbase MD ECG ORDERABLES Final Result * Drug abuse screen 8a panel, urine (02/04/2025 9:16 PM EDT) Amphetamine Screen, Ur Negative Negative LAB CHEMISTRY METHOD 02/04/2025 10:15 PM EDT [facility] Comment:Certain OTC medicati ons containing ephedrine, phenylephrine, pseudoephedrine and phenylpropanolamine can cause false positive results. Barbiturate Screen, Ur Negative Negative LAB CHEMISTRY METHOD 02/04/2025 10:15 PM EDT [facility] Benzodiazepine Screen, Ur Negative Negative LAB CHEMISTRY METHOD 02/04/2025 10:15 PM EDT [facility] Cocaine Screen, Ur Negative Negative LAB CHEMISTRY METHOD 02/04/2025 10:15 PM EDT [facility] Opiate Screen, Ur Negative Negative LAB CHEMISTRY METHOD 02/04/2025 10:15 PM EDT [facility] Cannabinoid (THC) Screen, Ur Negative Negative LAB CHEMISTRY METHOD 02/04/2025 10:15 PM EDT [facility] Comment:Specimens from patie nts taking pantoprazole sodium (Protonix) have been shown to produce false positive results. Oxycodone Screen, Ur Negative Negative LAB CHEMISTRY METHOD 02/04/2025 10:15 PM EDT [facility] Fentanyl, Ur Negative Negative LAB CHEMISTRY METHOD 02/04/2025 10:15 PM EDT [facility] Urine Urine specimen obtained by clean catch procedure / Unknown Non-blood Collection / Unknown 02/04/2025 9:16 PM EDT 02/04/2025 9:35 PM EDT Narrative [facility] - 02/04/2025 10:15 PM EDT Assay cutoffs: Amphetamines 1000 ng/mL Barbiturates 200 ng/mL Benzodiazepines 200 ng/mL Cocaine 300 ng/mL Fentanyl 1 ng/mL Opiates 300 ng/mL Oxycodone 100 ng/mL THC 50 ng/mL Semi-quantitative assay for screening purposes only. Unconfirmed screening result should not be used for non-medical purposes. *ALTERNATE METHOD CONFIRMATION DONE UPON REQUEST ONLY* Alona LEACH LAB URINE ORDERABLES Fin al Result [facility] [address] [place] [address], * (ABNORMAL) CBC auto differential (02/04/2025 8:06 PM EDT) Only the most recent of3 resultswithin the time period is included. WBC 11.5(H) 4.8 - 10.8 K/mcL LAB HEMETOLOGY METHOD 02/04/2025 8:20 PM EDT [facility] RBC 5.70(H) 3.80 - 4.80 M/mcL LAB HEMETOLOGY METHOD 02/04/2025 8:20 PM EDT [facility] Hemoglobin 14.0 11.5 - 16.0 g/dL LAB HEMETOLOGY METHOD 02/04/2025 8:20 PM EDT [facility] Hematocrit 43.9 35.0 - 47.0 % LAB HEMETOLOGY METHOD 02/04/2025 8:20 PM EDT [facility] MCV 77.7(L) 79.0 - 98.0 FL LAB HEMETOLOGY METHOD 02/04/2025 8:20 PM EDT [facility] MCH 24.8(L) 27.0 - 32.0 pcg LAB HEMETOLOGY METHOD 02/04/2025 8:20 PM EDT [facility] MCHC 31.9(L) 32.0 - 37.0 g/dL LAB HEMETOLOGY METHOD 02/04/2025 8:20 PM EDT [facility] RDW 16.9(H) 11.0 - 15.0 % LAB HEMETOLOGY METHOD 02/04/2025 8:20 PM EDT [facility] Platelets 451(H) 130 - 400 K/mcL LAB HEMETOLOGY METHOD 02/04/2025 8:20 PM [facility] MPV 9.0 7.0 - 11.0 FL LAB HEMETOLOGY METHOD 02/04/2025 8:20 PM T [facility] NRBC 0.0 <1.0 % LAB HEMETOLOGY METHOD 02/04/2025 8:20 PM [facility] NRBC Absolute 0.00 <0.10 K/mcL LAB HEMETOLOGY METHOD 02/04/2025 8:20 PM [facility] Neutrophils Relative 64.2 % LAB HEMETOLOGY METHOD 02/04/2025 8:20 PM [facility] Lymphocytes Relative 29.8 % LAB HEMETOLOGY METHOD 02/04/2025 8:20 PM [facility] Monocytes Relative 4.6 % LAB HEMETOLOGY METHOD 02/04/2025 8:20 PM [facility] Eosinophils Relative 0.7 % LAB HEMETOLOGY METHOD 02/04/2025 8:20 PM [facility] Basophils Relative 0.4 % LAB HEMETOLOGY METHOD 02/04/2025 8:20 PM [facility] Immature Granulocytes Relative 0.3 % LAB HEMETOLOGY METHOD 02/04/2025 8:20 PM [facility] Neutrophils Absolute 7.35(H) 1.50 - 7.00 K/mcL LAB HEMETOLOGY METHOD 02/04/2025 8:20 PM [facility] Lymphocytes Absolute 3.41 1.00 - 5.00 K/mcL LAB HEMETOLOGY METHOD 02/04/2025 8:20 PM [facility] Monocytes Absolute 0.53 0.20 - 1.00 K/mcL LAB HEMETOLOGY METHOD 02/04/2025 8:20 PM EDT [facility] Eosinophils Absolute 0.08 0.00 - 0.50 K/[facility] LAB HEMETOLOGY METHOD 02/04/2025 8:20 PM EDT [facility] Basophils Absolute 0.05 0.00 - 0.20 K/[facility] LAB HEMETOLOGY METHOD 02/04/2025 8:20 PM EDT [facility] Immature Granulocytes Absolute 0.04(H) 0.00 - 0.03 K/[facility] LAB HEMETOLOGY METHOD 02/04/2025 8:20 PM EDT [facility] Blood Venous blood specimen / Unknown Venipuncture / Unknown 02/04/2025 8:06 PM EDT 02/04/2025 8:16 PM EDT Alona LEACH LAB BLOOD ORDERABLES Fin al Result [facility] [address] [place] [address], [place] [phone] * hCG, serum, qualitative (02/04/2025 8:06 PM EDT) Pathologist [facility] hCG Qual Negative Negative 02/04/2025 8:40 PM EDT [facility] Blood Venous blood specimen / Unknown Venipuncture / Unknown 02/04/2025 8:06 PM EDT 02/04/2025 8:16 PM EDT Alona LEACH LAB BLOOD ORDERABLES Fin al Result [facility] [address] [place] [address], [place] [phone] * (ABNORMAL) Thyroid Stimulating Hormone (TSH) (02/04/2025 8:06 PM EDT) TSH 27.44(H) 0.40 - 4.00 mcIU/mL LAB CHEMISTRY METHOD 02/04/2025 10:08 PM EDT [facility] Blood Venous blood specimen / Unknown Venipuncture / Unknown 02/04/2025 8:06 PM EDT 02/04/2025 8:16 PM EDT Alona LEACH LAB BLOOD ORDERABLES Fin al Result Performing Organization Address [facility] de Phone Number [facility] [address] [place] [address], [place] [phone] * T4, Free (02/04/2025 8:06 PM EDT) Free T4 1.39 0.70 - 1.80 ng/dL LAB CHEMISTRY METHOD 02/04/2025 10:07 PM EDT [facility] Blood Venous blood specimen / Unknown Venipuncture / Unknown 02/04/2025 8:06 PM EDT 02/04/2025 8:16 PM EDT Alona LEACH LAB BLOOD ORDERABLES Fin al Result Performing Organization Address [facility] de Phone Number [facility] [address] [place] [address], [place] [phone] * Magnesium (02/04/2025 8:06 PM EDT) Magnesium 1.9 1.9 - 2.6 mg/dL LAB CHEMISTRY METHOD 02/04/2025 8:58 PM EDT [facility] Blood Venous blood specimen / Unknown Venipuncture / Unknown 02/04/2025 8:06 PM EDT 02/04/2025 8:16 PM EDT Alona LEACH LAB BLOOD ORDERABLES Fin al Result [facility] [address] [place] [address], * (ABNORMAL) Comprehensive Metabolic Panel (CMP) (02/04/2025 8:06 PM EDT) Sodium 138 133 - 145 mmol/L LAB CHEMISTRY METHOD 02/04/2025 8:58 PM EDT [facility] Potassium 3.5 3.5 - 5.5 mmol/L LAB CHEMISTRY METHOD 02/04/2025 8:58 PM EDT [facility] Chloride 105 96 - 110 mmol/L LAB CHEMISTRY METHOD 02/04/2025 8:58 PM [facility] CO2 21 21 - 32 mmol/L LAB CHEMISTRY METHOD 02/04/2025 8:58 PM [facility] Anion Gap 12(H) 3 - 11 LAB CHEMISTRY METHOD 02/04/2025 8:58 PM [facility] Glucose 88 70 - 100 mg/dL LAB CHEMISTRY METHOD 02/04/2025 8:58 PM [facility] BUN 11 5 - 25 mg/dL LAB CHEMISTRY METHOD 02/04/2025 8:58 PM [facility] Creatinine 0.76 0.50 - 1.10 mg/dL LAB CHEMISTRY METHOD 02/04/2025 8:58 PM EDT [facility] eGFR 108 >=60 mL/min/1. 73m2 LAB CHEMISTRY METHOD 02/04/2025 8:58 PM [facility] Comment:Calculation based on the Chronic Kidney Disease Epidemiology Collaboration (CKD-EPI) equation refit without adjustment for race. BUN/Creatinine Ratio 14.5 LAB CHEMISTRY METHOD 02/04/2025 8:58 PM [facility] Calcium 10.0 8.5 - 10.5 mg/dL LAB CHEMISTRY METHOD 02/04/2025 8:58 PM [facility] AST (SGOT) 23 10 - 42 unit/L LAB CHEMISTRY METHOD 02/04/2025 8:58 PM EDT [facility] ALT (SGPT) 34 10 - 60 unit/L LAB CHEMISTRY METHOD 02/04/2025 8:58 PM EDT [facility] Alkaline Phosphatase 74 42 - 121 unit/L LAB CHEMISTRY METHOD 02/04/2025 8:58 PM EDT [facility] Total Protein 7.7 6.0 - 8.0 g/dL LAB CHEMISTRY METHOD 02/04/2025 8:58 PM EDT [facility] Albumin 4.3 3.2 - 5.0 g/dL LAB CHEMISTRY METHOD 02/04/2025 8:58 PM EDT [facility] Total Bilirubin 0.3 0.0 - 1.4 mg/dL LAB CHEMISTRY METHOD 02/04/2025 8:58 PM EDT [facility] Blood Venous blood specimen / Unknown Venipuncture / Unknown 02/04/2025 8:06 PM EDT 02/04/2025 8:16 PM EDT us Alona LEACH LAB BLOOD ORDERABLES Fin al Result [facility] [address] [place] [address], * 12-Lead ECG (02/04/2025 8:00 PM EDT) Only the most recent of3 resultswithin the time period is included. Ventricular Rate ECG 107 BPM GEMUSE Atrial Rate 107 BPM GEMUSE P-R Interval 124 ms GEMUSE QRS Duration 84 ms GEMUSE Q-T Interval 350 ms GEMUSE QTc 467 ms GEMUSE P Wave Dud[place] 36 degrees GEMUSE R [place] 2 degrees GEMUSE T [place] 18 degrees GEMUSE ECG Interpretation Sinus tachycardia Possible Inferior infarct (cited on or before 02-FEB-2025) Abnormal ECG When compared with ECG of 02-FEB-2025 20:07, No significant change was found Confirmed by Zeus BOUCHER JOHN ([id number]) on 02/08/2025 4:41:15 PM GEMUSE 02/04/2025 8:00 PM EDT 02/08/2025 4:41 PM EDT Alona LEACH ECG ORDERABLES Final Re sult Performing Organization Address [facility] de Phone Number GEMUSE * Troponin I High Sensitivity (02/02/2025 8:10 PM EDT) [facility] High Sensitivity Troponin I <3 <=54 ng/L LAB CHEMISTRY METHOD 02/02/2025 8:57 PM EDT [facility] Blood Venous blood specimen / Unknown Venipuncture / Unknown 02/02/2025 8:10 PM EDT 02/02/2025 8:28 PM EDT Narrative [facility] - 02/02/2025 8:57 PM EDT High levels of biotin in samples may falsely decrease hsTroponin values. Use caution when interpreting hsTroponin results in patients taking biotin who exhibit renal impairment (eGFR <60) or in patients taking more than 20 mg/day of biotin. Bo Espino MD LAB BLOOD ORDERABLES Elisa l Result Performing Organization Address [facility] Co de Phone Number [facility] [address] [place] [address], [place] [phone] * (ABNORMAL) Basic Metabolic Panel (BMP) (02/02/2025 8:10 PM EDT) Only the most recent of2 resultswithin the time period is included. [facility] Sodium 137 133 - 145 mmol/L LAB CHEMISTRY METHOD 02/02/2025 8:51 PM EDT [facility] Potassium 4.0 3.5 - 5.5 mmol/L LAB CHEMISTRY METHOD 02/02/2025 8:51 PM EDT [facility] Chloride 107 96 - 110 mmol/L LAB CHEMISTRY METHOD 02/02/2025 8:51 PM EDT [facility] CO2 22 21 - 32 mmol/L LAB CHEMISTRY METHOD 02/02/2025 8:51 PM [facility] Anion Gap 8 3 - 11 LAB CHEMISTRY METHOD 02/02/2025 8:51 PM [facility] Glucose 126(H) 70 - 100 mg/dL LAB CHEMISTRY METHOD 02/02/2025 8:51 PM EDT [facility] BUN 11 5 - 25 mg/dL LAB CHEMISTRY METHOD 02/02/2025 8:51 PM [facility] Creatinine 0.72 0.50 - 1.10 mg/dL LAB CHEMISTRY METHOD 02/02/2025 8:51 PM [facility] eGFR 116 >=60 mL/min/1. 73m2 LAB CHEMISTRY METHOD 02/02/2025 8:51 PM T [facility] Comment:Calculation based on the Chronic Kidney Disease Epidemiology Collaboration (CKD-EPI) equation refit without adjustment for race. BUN/Creatinine Ratio 15.3 LAB CHEMISTRY METHOD 02/02/2025 8:51 PM [facility] Calcium 10.5 8.5 - 10.5 mg/dL LAB CHEMISTRY METHOD 02/02/2025 8:51 PM EDT [facility] Blood Venous blood specimen / Unknown Venipuncture / Unknown 02/02/2025 8:10 PM EDT 02/02/2025 8:28 PM EDT us Bo Espino MD LAB BLOOD ORDERABLES Elisa l Result [facility] [address] [place] [address], * XR Chest 2 Views (02/01/2025 12:07 AM EDT) Anatomical Region Laterality Modality Body Radiographic Armida ging 02/01/2025 8:43 AM EDT Impressions 02/01/2025 8:43 AM EDT Limited depth of inspiration. Otherwise, normal examination. No change since 10/16/2024. Code 93900 -------- FINAL REPORT -------- Dictated By: Judson Ibarra Dictated Date: 02/01/2025 08:43 ET Assigned Physician: Judson Ibarra Reviewed and Electronically Signed By: Judson Ibarra Signed Date: 02/01/2025 08:43 ET Workstation ID: [id number] Transcribed By: Self Edit Transcribed Date: 02/01/2025 08:43 ET Narrative 02/01/2025 8:43 AM EDT HISTORY: The patient is a 29-year-old female with dyspnea. FINDINGS: PA and lateral radiographs of the chest demonstrate limited depth of inspiration as also seen on the prior study performed 10/16/2024. The bony structures are of normal appearance. The cardiac and mediastinal contours are within normal limits allowing for shallow inspiration. The lungs and costophrenic angles are clear. Procedure Note Judson Ibarra MD - 02/01/2025 HISTORY: The patient is a 29-year-old female with dyspnea. FINDINGS: PA and lateral radiographs of the chest demonstrate limiteddepth of inspiration as also seen on the prior study performed 10/16/2024.The bony structures are of normal appearance. The cardiac and mediastinalcontours are within normal limits allowing for shallow inspiration. Thelungs and costophrenic angles are clear. IMPRESSION: Limited depth of inspiration. Otherwise, normal examination. No changesince 10/16/2024. Code 42132 -------- FINAL REPORT -------- Dictated By: Judson Ibarra Dictated Date: 02/01/2025 08:43 ET Assigned Physician: Judson Ibarra Reviewed and Electronically Signed By: Judson Ibarra Signed Date: 02/01/2025 08:43 ET Workstation ID: [id number] Transcribed By: Self Edit Transcribed Date: 02/01/2025 08:43 ET us Karlene Kang MD IMG XR PROCEDURES Final Result * B-type natriuretic peptide (01/31/2025 11:04 PM EDT) BNP 4 <=100 pcg/mL LAB CHEMISTRY METHOD 02/01/2025 12:04 AM EDT [facility] Blood Venous blood specimen / Unknown Venipuncture / Unknown 01/31/2025 11:04 PM EDT 01/31/2025 11:27 PM EDT Karlene Kang MD LAB BLOOD ORDERABLES Final Res ult [facility] [address] [place] [address], from Last 3 Months Insurance [employer] [place] [address] Care Teams Ticket Writer Relationship Specialty Start Date End Date Obdulia Dewitt MD [address] [place] [phone] PCP - General Internal Medicine 10/16/24
== END 2025-02-14 11:21 | disposition home or self-care (01) ==
LOC: HO.HMCC 10:59
PROVIDERS: PCP Internal Medicine; Visit Provider Internal Medicine
DX: F33.41 Major depressive disorder, recurrent, in partial remission (principal); E66.01 Morbid (severe) obesity due to excess calories; Z68.42 Body mass index [BMI] 45.0-49.9, adult; F50.819 Binge eating disorder, unspecified; F41.9 Anxiety disorder, unspecified

== ENCOUNTER → 2025-02-14 10:58 | Outpatient (BNVA) | payer OTHER, SELFPAY | PROVIDERS: PCP Internal Medicine; Visit Provider Internal Medicine | DX: E66.01 Morbid (severe) obesity due to excess calories (principal); F41.9 Anxiety disorder, unspecified; F33.41 Major depressive disorder, recurrent, in partial remission; F50.819 Binge eating disorder, unspecified; Z68.42 Body mass index [BMI] 45.0-49.9, adult | CPT/HCPCS: 96127; 99212 ==

== ENCOUNTER 2025-03-20 09:49 | Outpatient (AMB) | payer OTHER, SELFPAY ==
--- NOTE | 2025-03-20 09:58 | MHC.PC.OV ---
Vital Signs 03/20/25 10:00 Height 5 ft 2 in Weight 267 lb BMI 48.8 BP 128/80 Blood Pressure Location Lt brachial Position Sitting Pulse 100 Pulse Source Pulse Oximeter Pulse Oximetry (%) 97 Intake Visit Reasons: 1m follow up Allergies oxycodone (OXYCODONE) Allergy (Intermediate, Verified 03/20/25 10:01) RASH, hives phentermine (From Fastin (phentermine)) Adverse Reaction (Severe, Verified 03/20/25 10:01) Chest Pain prednisone Adverse Reaction (Intermediate, Verified 03/20/25 10:01) Anxiety Medication List - Last Reconciled 03/20/25 by Obdulia Dewitt MD blood pressure kit-extra large As directed chlorhexidine gluconate 4% (Hibiclens) 1 appl topical TID PRN 2 doses cholestyramine (with sugar) 4 gram 4 grams PO DAILY 30 days ferrous sulfate 325 mg PO BID 90 days hydroxyzine HCl 25 mg PO BEDTIME 90 days ketoconazole 2% 1 appl topical 2XW 30 days levothyroxine 200 mcg PO DAILY lorazepam 0.5 mg PO .qd PRN 30 days metoprolol succinate ER 25 mg PO DAILY 90 days omeprazole 20 mg PO DAILY riboflavin (vitamin B2) 400 mg PO DAILY 30 days sennosides-docusate sodium 8.6-50 mg (Senna Plus) 2 tab-caps (2 x 8.6-50 mg) PO BEDTIME PRN 90 days tirzepatide (weight loss) 5 mg (0.5 mL) subcut QWEEK 90 days Tobacco use date assessed: 01/10/25 Dental Screening Dental Screen Date: 01/10/25 HPI 1m follow up HPI Details History of Present Illness The patient is a 29-year-old female presenting with a medication review. Hypertension: - Reports ongoing treatment with metoprolol. - Blood pressure management appears stable with current treatment. Hypothyroidism: - Prescribed levothyroxine, last refill in October, indicating a possible need for a renewal. - Thyroid labs reportedly within normal limits as of a recent check in January. Anxiety and Panic Disorder: - Hydroxyzine is taken as needed, with no side effects noted; currently sufficient supply. - Occasional use of lorazepam, also taken on an as-needed basis, last prescribed in February. - No recent panic attacks or exacerbations reported. Chronic Migraine: - stable Restless Leg Syndrome: - stable Binge Eating Disorder: - Lifestyle modifications include regular gym attendance, reflecting efforts to manage weight. - Initial weight was 272 lbs in February, reduced to 267 lbs at present, suggesting improvement. Depression: - Ongoing management indicated, stable Obesity: - Current BMI is 48.8, reflecting a slight improvement from previous measurements through lifestyle adjustments. continue Zepbound at 5 mg for now Gastroesophageal Reflux Disease: - continued use of omeprazole Medical History: - Hypertension. - Hypothyroidism. - Anxiety and Panic Disorder. - Chronic Migraine. - Restless Leg Syndrome. - Binge Eating Disorder. - Depression. - Obesity. Medications: - Hydroxyzine as needed for anxiety relief. - Levothyroxine for hypothyroidism. - Lorazepam as needed for anxiety, last prescribed in February. - Metoprolol likely for hypertension management. - Omeprazole for gastroesophageal reflux disease. Social History: - Engages in regular physical activity, noting gym attendance which is part of weight management. Problem List - Hypertension. - Hypothyroidism. - Anxiety and Panic Disorder. - Chronic Migraine. - Restless Leg Syndrome. - Binge Eating Disorder. - Depression. - Obesity. - Gastroesophageal Reflux Disease. Patient Instructions - Continue current exercise routine including gym attendance. - Continue taking prescribed medications as directed. - Monitor supply of medications and request refills as needed. - Return for follow-up in two months for wt managment and Zepbound dose adjustment Review of Systems - General: No fever no chills - Neurological: No headaches no dizziness - Ear nose throat: No sore throat no hearing difficulty no ear pain - Cardiovascular: No syncope, no chest pain, no palpitations - Gastrointestinal: No nausea vomiting or diarrhea - Endocrine: No polyuria polydipsia no heat intolerance - Genitourinary: No dysuria , no blood in urine Physical Exam - General: No acute distress - HEENT: No acute findings - Neck: Supple - Respiratory system: Able to talk in full sentences, no audible wheeze - Cardiovascular: S1-S2 regular in rate and rhythm - Gastrointestinal: No pain - Extremities: No new findings - 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 awake oriented x3 motor sensory intact - Skin: Normal turgor [facility] Medical History Iron deficiency anemia Low hemoglobin Pelvic pain Hospital discharge follow-up Surgical History Hx of section Hx laparoscopic cholecystectomy Family History Father Mental health disorder Mother Asthma Mental health disorder Maternal Grandmother Breast cancer Family/Other Colon cancer Brother Asthma Social History Household Members: None Housing: Apartment Alcohol intake: current Alcohol intake frequency: a few times a month Patient Tobacco Use Status: Never used Tobacco e-Cigarette/Vaping Use: Never Used service: No Current occupational status: unemployed Cognitive needs: No Hearing needs: No Vision needs: Yes Questionnaire Thrive Questionnaire Date Thrive assessed: 01/10/25 I am a: Patient What is your living situation today?: I have a steady place to live Within the past 12 months, did the food you bought not last and you didn't have the money to get more?: Never true Within the past 12 months, did you worry whether your food would run out before you got money to buy more?: Never true Do you have trouble paying for medicines?: No Do you have trouble getting transportation to medical appointments?: Yes Do you have trouble paying your heating and electricity bill?: No Do you have trouble taking care of your child, family member or friend?: No Do you have trouble with day-to-day activities such as bathing, preparing meals, shopping, managing finances, etc.?: No Are you currently unemployed and looking for a job?: Yes Are you interested in more education?: Yes Currently or been in a relationship where the following occur: No concerns reported THRIVE Score: 1 DG-7 AMB Questionnaire DG-7 Date DG - 7 assessed: 02/14/25 Source: Developed by Drs. Christiano Fairbanks, Veronica Chow, Heraclio Palencia and colleagues, with an educational onel from [employer]. Physical exam (Primary Care) Vital Signs: Last Vital Signs Pulse 100 03/20/25 10:00 BP 128/80 03/20/25 10:00 Pulse Ox 97 03/20/25 10:00 BMI result Body Mass Index 48.8 Tobacco/Smoking Status: Tobacco use Status Tobacco use date assessed 01/10/25 03/20/25 09:59 Patient Tobacco Use Status Never used Tobacco 03/20/25 09:59 e-Cigarette/Vaping Use Never Used 03/20/25 09:59 Thrive Assessment: Date of Thrive Assessment Date Thrive assessed 01/10/25 03/20/25 09:59 Currently or been in a relationship where the following occur: No concerns reported Coding Level of Care Code Est Pt Level 4 (41892) Complex EM visit Add On G2211 Diagnoses Morbid obesity due to excess calories E66.01 Recurrent major depressive disorder, in partial remission F33.41 Active/Remission status: in partial remission Binge-eating disorder, moderate F50.81 Anxiety disorder with panic attacks F41.9 Hypertension, essential I10 Other specified hypothyroidism E03.8 Restless leg syndrome G25.81 Chronic GERD K21.9 Assessment & Plan Assessment & Plan (1) Morbid obesity due to excess calories: Code(s): E66.01 - Morbid (severe) obesity due to excess calories Category: Medical (2) Major depression, recurrent: Code(s): F33.9 - Major depressive disorder, recurrent, unspecified Category: Medical Qualifiers: Active/Remission status: in partial remission Qualified Code(s): F33.41 - Major depressive disorder, recurrent, in partial remission (3) Binge-eating disorder, moderate: Code(s): F50.81 - Binge eating disorder Category: Medical (4) Anxiety disorder with panic attacks: Code(s): F41.9 - Anxiety disorder, unspecified Category: Medical (5) Hypertension, essential: Code(s): I10 - Essential (primary) hypertension Category: Medical (6) Other specified hypothyroidism: Code(s): E03.8 - Other specified hypothyroidism Category: Medical (7) Restless leg syndrome: Code(s): G25.81 - Restless legs syndrome Category: Medical (8) Chronic GERD: Code(s): K21.9 - Gastro-esophageal reflux disease without esophagitis Category: Medical Plan History of Present Illness The patient is a 29-year-old female presenting with a medication review. Hypertension: - Reports ongoing treatment with metoprolol. - Blood pressure management appears stable with current treatment. Hypothyroidism: - Prescribed levothyroxine, last refill in October, indicating a possible need for a renewal. - Thyroid labs reportedly within normal limits as of a recent check in January. Anxiety and Panic Disorder: - Hydroxyzine is taken as needed, with no side effects noted; currently sufficient supply. - Occasional use of lorazepam, also taken on an as-needed basis, last prescribed in February. - No recent panic attacks or exacerbations reported. Chronic Migraine: - stable Restless Leg Syndrome: - stable Binge Eating Disorder: - Lifestyle modifications include regular gym attendance, reflecting efforts to manage weight. - Initial weight was 272 lbs in February, reduced to 267 lbs at present, suggesting improvement. Depression: - Ongoing management indicated, stable Obesity: - Current BMI is 48.8, reflecting a slight improvement from previous measurements through lifestyle adjustments. continue Zepbound at 5 mg for now Gastroesophageal Reflux Disease: - continued use of omeprazole Medical History: - Hypertension. - Hypothyroidism. - Anxiety and Panic Disorder. - Chronic Migraine. - Restless Leg Syndrome. - Binge Eating Disorder. - Depression. - Obesity. Medications: - Hydroxyzine as needed for anxiety relief. - Levothyroxine for hypothyroidism. - Lorazepam as needed for anxiety, last prescribed in February. - Metoprolol likely for hypertension management. - Omeprazole for gastroesophageal reflux disease. Social History: - Engages in regular physical activity, noting gym attendance which is part of weight management. Problem List - Hypertension. - Hypothyroidism. - Anxiety and Panic Disorder. - Chronic Migraine. - Restless Leg Syndrome. - Binge Eating Disorder. - Depression. - Obesity. - Gastroesophageal Reflux Disease. Patient Instructions - Continue current exercise routine including gym attendance. - Continue taking prescribed medications as directed. - Monitor supply of medications and request refills as needed. - Return for follow-up in two months for wt managment and Zepbound dose adjustment Medications: Refilled levothyroxine 200 mcg PO DAILY 90 tabs 0RF lorazepam 0.5 mg PO .qd PRN 14 tabs 0RF anxiety 30 days metoprolol succinate ER 25 mg PO DAILY 90 tabs 0RF 90 days
[2025-03-20 10:00] VITALS: BP 128/80; PULSE 100; O2SAT 97; BMI 48.8
--- OUTSIDE RECORDS SUMMARY | 2025-03-20 12:40 | XMS_ITS | Clinical Summary ---
Author Organization [facility] [address] [place] [address] [place] [phone] Phone Care Team Providers Care Glassine Machine Tender Name Role Phone Obdulia Dewitt MD Primary Care Provider [phone] Allergies Active Allergy Reactions Criticality Noted Date Comments Oxycodone 02/20/2016 Medications albuterol HFA (PROAIR HFA ; PROVENTIL HFA ; VENTOLIN HFA) 90 mcg/actuation inhaler Inhale 2 puffs by mouth every 4 (four) hours if needed for wheezing. 8 g 02/01/2025 Active hydrOXYzine HCL (ATARAX) 25 mg tablet Take 1 tablet (25 mg total) by mouth every 8 (eight) hours if needed for anxiety for up to 20 doses. 12 tablet 02/02/2025 Active Active Problems No known active problems Encounters Date Type Department Care Team Description 02/04/2025 7:43 PM EDT - 02/04/2025 10:27 PM EDT [facility] [address] [place] [id number] Generalized anxiety disorder (Primary Dx); Anxiety Discharge Disposition: Home or Self Care 02/02/2025 7:41 PM EDT - 02/02/2025 10:57 PM EDT [facility] [address] [place] [phone] Bo Espino MD Anxiety (Primary Dx); Palpitation Discharge Disposition: Home or Self Care 01/31/2025 9:56 PM EDT - 02/01/2025 1:17 AM EDT Emergency [facility] Emergency [address] [place] [address] Pato Benitez MD Shortness of [...] 2013 Cervical Cancer Screening: Pap Smear 2015 Depression Screening 07/05/2024 Cholesterol Screening (Lipid Panel) 07/07/2024 HIV Screening 07/07/2024 Hepatitis C Screening 07/07/2024 Social Influencers of Health Screening 07/07/2024 COVID-19 Vaccine (1 - season) 2025 Influenza Vaccine (#1) 2025 04/07/2018 Hypertension/CHF/CAD Annual [...] of3 resultswithin the time period is included. Provider Onbase MD ECG ORDERABLES Final Result * Drug abuse screen 8a panel, urine (02/04/2025 9:16 PM EDT) Amphetamine Screen, Ur Negative Negative LAB CHEMISTRY METHOD 02/04/2025 10:15 PM [facility] Comment:Certain OTC medicati ons containing ephedrine, phenylephrine, pseudoephedrine and phenylpropanolamine can cause false positive results. Barbiturate Screen, Ur Negative Negative LAB CHEMISTRY METHOD 02/04/2025 10:[address] [facility] Benzodiazepine Screen, Ur Negative Negative LAB CHEMISTRY METHOD 02/04/2025 10:[address] [facility] Cocaine Screen, Ur Negative Negative LAB CHEMISTRY METHOD [facility] Opiate Screen, Ur Negative Negative LAB CHEMISTRY METHOD 02/04/2025 10:15 PM [facility] Cannabinoid (THC) Screen, Ur Negative Negative LAB CHEMISTRY METHOD 02/04/2025 10:[address] [facility] Comment:Specimens from patie nts taking pantoprazole sodium (Protonix) have been shown to produce false positive results. Oxycodone Screen, Ur Negative Negative LAB CHEMISTRY METHOD 02/04/2025 10:15 PM [facility] Fentanyl, Ur Negative Negative LAB CHEMISTRY METHOD 02/04/2025 10:15 PM [facility] Urine Urine specimen obtained by clean catch procedure / Unknown Non-blood Collection / Unknown 02/04/2025 9:16 PM EDT 02/04/2025 9:[address] [facility] - 02/04/2025 10:15 PM EDT Assay cutoffs: Amphetamines 1000 ng/mL Barbiturates 200 ng/mL Benzodiazepines 200 ng/mL Cocaine 300 ng/mL Fentanyl 1 ng/mL Opiates 300 ng/mL Oxycodone 100 ng/mL THC 50 ng/mL Semi-quantitative assay for screening purposes only. Unconfirmed screening result should not be used for non-medical purposes. *ALTERNATE METHOD CONFIRMATION DONE UPON REQUEST ONLY* us Alona LEACH LAB URINE ORDERABLES Fin al Result [facility] [address] [place] [address], * (ABNORMAL) CBC auto differential (02/04/2025 8:06 PM EDT) Only the most recent of3 resultswithin the time period is included. WBC 11.5(H) 4.8 - 10.8 K/mcL LAB HEMETOLOGY METHOD 02/04/2025 8:[address] [facility] RBC 5.70(H) 3.80 - 4.80 M/mcL LAB HEMETOLOGY METHOD 02/04/2025 8:[address] [facility] Hemoglobin 14.0 11.5 - 16.0 g/dL LAB HEMETOLOGY METHOD 02/04/2025 8:[address] [facility] Hematocrit 43.9 35.0 - 47.0 % LAB HEMETOLOGY METHOD 02/04/2025 8:[address] [facility] MCV 77.7(L) 79.0 - 98.0 FL LAB HEMETOLOGY METHOD 02/04/2025 8:[address] [facility] MCH 24.8(L) 27.0 - 32.0 pcg LAB HEMETOLOGY METHOD 02/04/2025 8:[address] [facility] MCHC 31.9(L) 32.0 - 37.0 g/dL LAB HEMETOLOGY METHOD 02/04/2025 8:[address] [facility] RDW 16.9(H) 11.0 - 15.0 % LAB HEMETOLOGY METHOD 02/04/2025 8:[address] [facility] Platelets 451(H) 130 - 400 K/mcL LAB HEMETOLOGY METHOD 02/04/2025 8:[address] [facility] MPV 9.0 7.0 - 11.0 FL LAB HEMETOLOGY METHOD 02/04/2025 8:[address] [facility] NRBC 0.0 <1.0 % LAB HEMETOLOGY METHOD 02/04/2025 8:[address] [facility] NRBC Absolute 0.00 <0.10 K/mcL LAB HEMETOLOGY METHOD 02/04/2025 8:[address] [facility] Neutrophils Relative 64.2 % LAB HEMETOLOGY METHOD 02/04/2025 8:[address] [facility] Lymphocytes Relative 29.8 % LAB HEMETOLOGY METHOD 02/04/2025 8:[facility] Monocytes Relative 4.6 % LAB HEMETOLOGY METHOD 02/04/2025 8:[address] [facility] Eosinophils Relative 0.7 % LAB HEMETOLOGY METHOD 02/04/2025 8:20 [facility] Basophils Relative 0.4 % LAB HEMETOLOGY METHOD 02/04/2025 8:20 PM [facility] Immature Granulocytes Relative 0.3 % LAB HEMETOLOGY METHOD 02/04/2025 8:20 PM [facility] Neutrophils Absolute 7.35(H) 1.50 - 7.00 K/mcL LAB HEMETOLOGY METHOD 02/04/2025 8:[address] [facility] Lymphocytes Absolute 3.41 1.00 - 5.00 K/mcL LAB HEMETOLOGY METHOD 02/04/2025 8:[address] [facility] Monocytes Absolute 0.53 0.20 - 1.00 K/mcL LAB HEMETOLOGY METHOD 02/04/2025 8:[address] [facility] Eosinophils Absolute 0.08 0.00 - 0.50 K/mcL LAB HEMETOLOGY METHOD 02/04/2025 8:[address] [facility] Basophils Absolute 0.05 0.00 - 0.20 K/[facility] LAB HEMETOLOGY METHOD 02/04/2025 8:[address] [facility] Immature Granulocytes Absolute 0.04(H) 0.00 - 0.03 K/[facility] LAB HEMETOLOGY METHOD 02/04/2025 8:[address] [facility] Blood Venous blood specimen / Unknown Venipuncture / Unknown 02/04/2025 8:06 PM EDT 02/04/2025 8:16 PM EDT Alona LEACH LAB BLOOD ORDERABLES Fin al Result Performing Organization Address City/[facility]/ZIP Co de Phone Number [facility] [address] [place] [address], [place] [phone] * hCG, serum, qualitative (02/04/2025 8:06 PM EDT) hCG Qual Negative Negative 02/04/2025 8:[address] [facility] Blood Venous blood specimen / Unknown Venipuncture / Unknown 02/04/2025 8:06 PM EDT 02/04/2025 8:16 PM EDT Alona LEACH LAB BLOOD ORDERABLES Fin al Result [facility] [address] [place] [address], [place] [phone] * (ABNORMAL) Thyroid Stimulating Hormone (TSH) (02/04/2025 8:06 PM EDT) TSH 27.44(H) 0.40 - 4.00 mcIU/mL LAB CHEMISTRY METHOD 02/04/2025 10:[address] [facility] Blood Venous blood specimen / Unknown Venipuncture / Unknown 02/04/2025 8:06 PM EDT 02/04/2025 8:16 PM EDT Alona LEACH LAB BLOOD ORDERABLES Fin al Result Performing Organization Address [facility] Co de Phone Number [facility] [address] [place] [address], [place] [phone] * T4, Free (02/04/2025 8:06 PM EDT) Free T4 1.39 0.70 - 1.80 ng/dL LAB CHEMISTRY METHOD 02/04/2025 10:[address] [facility] Blood Venous blood specimen / Unknown Venipuncture / Unknown 02/04/2025 8:06 PM EDT 02/04/2025 8:16 PM EDT Alona LEACH LAB BLOOD ORDERABLES Fin al Result Performing Organization Address [facility] de Phone Number [facility] [address] [place] [address], [place] [phone] * Magnesium (02/04/2025 8:06 PM EDT) Magnesium 1.9 1.9 - 2.6 mg/dL LAB CHEMISTRY METHOD 02/04/2025 8:[address] [facility] Blood Venous blood specimen / Unknown Venipuncture / Unknown 02/04/2025 8:06 PM EDT 02/04/2025 8:16 PM EDT Alona LEACH LAB BLOOD ORDERABLES Fin al Result Performing Organization Address [facility]/ZIP Co de Phone Number [facility] [address] [place] [address], [place] [phone] * (ABNORMAL) Comprehensive Metabolic Panel (CMP) (02/04/2025 8:06 PM EDT) Sodium 138 133 - 145 mmol/L LAB CHEMISTRY METHOD 02/04/2025 8:58 PM [facility] Potassium 3.5 3.5 - 5.5 mmol/L LAB CHEMISTRY METHOD 02/04/2025 8:58 PM [facility] Chloride 105 96 - 110 mmol/L LAB CHEMISTRY METHOD 02/04/2025 8:58 PM [facility] CO2 21 21 - 32 mmol/L LAB CHEMISTRY METHOD 02/04/2025 8:58 PM [facility] Anion Gap 12(H) 3 - 11 LAB CHEMISTRY METHOD 02/04/2025 8:58 PM [facility] Glucose 88 70 - 100 mg/dL LAB CHEMISTRY METHOD 02/04/2025 8:58 PM [facility] BUN 11 5 - 25 mg/dL LAB CHEMISTRY METHOD 02/04/2025 8:58 PM [facility] Creatinine 0.76 0.50 - 1.10 mg/dL LAB CHEMISTRY METHOD 02/04/2025 8:58 PM [facility] eGFR 108 >=60 mL/min/1. 73m2 LAB CHEMISTRY METHOD 02/04/2025 8:58 PM [facility] Comment:Calculation based on the Chronic Kidney Disease Epidemiology Collaboration (CKD-EPI) equation refit without adjustment for race. BUN/Creatinine Ratio 14.5 LAB CHEMISTRY METHOD 02/04/2025 8:58 PM [facility] Calcium 10.0 8.5 - 10.5 mg/dL LAB CHEMISTRY METHOD 02/04/2025 8:58 PM [facility] AST (SGOT) 23 10 - 42 unit/L LAB CHEMISTRY METHOD 02/04/2025 8:58 PM [facility] ALT (SGPT) 34 10 - 60 unit/L LAB CHEMISTRY METHOD 02/04/2025 8:[address] [facility] Alkaline Phosphatase 74 42 - 121 unit/L LAB CHEMISTRY METHOD 02/04/2025 8:[address] [facility] Total Protein 7.7 6.0 - 8.0 g/dL LAB CHEMISTRY METHOD 02/04/2025 8:[address] [facility] Albumin 4.3 3.2 - 5.0 g/dL LAB CHEMISTRY METHOD 02/04/2025 8:[address] [facility] Total Bilirubin 0.3 0.0 - 1.4 mg/dL LAB CHEMISTRY METHOD 02/04/2025 8:[address] [facility] Blood Venous blood specimen / Unknown Venipuncture / Unknown 02/04/2025 8:06 PM EDT 02/04/2025 8:16 PM EDT Alona LEACH LAB BLOOD ORDERABLES [facility] al Result [facility] [address] [place] [address], * 12-Lead ECG (02/04/2025 8:00 PM EDT) Only the most recent of3 resultswithin the time period is included. Ventricular Rate ECG 107 BPM GEMUSE Atrial Rate 107 BPM GEMUSE P-R Interval 124 ms GEMUSE QRS Duration 84 ms GEMUSE Q-T Interval 350 ms GEMUSE QTc 467 ms GEMUSE P Wave [place] 36 degrees GEMUSE R [place] 2 degrees GEMUSE T [place] 18 degrees GEMUSE ECG Interpretation Sinus tachycardia Possible Inferior infarct (cited on or before 02-FEB-2025) Abnormal ECG When compared with ECG of 02-FEB-2025 20:07, No significant change was found Confirmed by Zeus BOUCHER JOHN ([id number]) on 02/08/2025 4:41:15 PM GEMUSE 02/04/2025 8:00 PM EDT 02/08/2025 4:41 PM EDT Alona LEACH ECG ORDERABLES Final Re sult Performing Organization Address [facility] Co de Phone Number GEMUSE * Troponin I High Sensitivity (02/02/2025 8:10 PM EDT) [facility] High Sensitivity Troponin I <3 <=54 ng/L LAB CHEMISTRY METHOD 02/02/2025 8:[address] [facility] Blood Venous blood specimen / Unknown Venipuncture / Unknown 02/02/2025 8:10 PM EDT 02/02/2025 8:[address] [facility] - 02/02/2025 8:57 PM EDT High levels of biotin in samples may falsely decrease hsTroponin values. Use caution when interpreting hsTroponin results in patients taking biotin who exhibit renal impairment (eGFR <60) or in patients taking more than 20 mg/day of biotin. Bo Espino MD LAB BLOOD ORDERABLES Elisa l Result Performing Organization Address [facility] Co de Phone Number [facility] [address] [place] [address], [place] [phone] * (ABNORMAL) Basic Metabolic Panel (BMP) (02/02/2025 8:10 PM EDT) Only the most recent of2 resultswithin the time period is included. [facility] Sodium 137 133 - 145 mmol/L LAB CHEMISTRY METHOD 02/02/2025 8:[address] [facility] Potassium 4.0 3.5 - 5.5 mmol/L LAB CHEMISTRY METHOD 02/02/2025 8:[address] [facility] Chloride 107 96 - 110 mmol/L LAB CHEMISTRY METHOD 02/02/2025 8:[address] [facility] CO2 22 21 - 32 mmol/L LAB CHEMISTRY METHOD 02/02/2025 8:[address] [facility] Anion Gap 8 3 - 11 LAB CHEMISTRY METHOD 02/02/2025 8:[address] [facility] Glucose 126(H) 70 - 100 mg/dL LAB CHEMISTRY METHOD 02/02/2025 8:[address] [facility] BUN 11 5 - 25 mg/dL LAB CHEMISTRY METHOD 02/02/2025 8:[address] [facility] Creatinine 0.72 0.50 - 1.10 mg/dL LAB CHEMISTRY METHOD 02/02/2025 8:[address] [facility] eGFR 116 >=60 mL/min/1. 73m2 LAB CHEMISTRY METHOD 02/02/2025 8:[address] [facility] Comment:Calculation based on the Chronic Kidney Disease Epidemiology Collaboration (CKD-EPI) equation refit without adjustment for race. BUN/Creatinine Ratio 15.3 LAB CHEMISTRY METHOD 02/02/2025 8:51 PM [facility] Calcium 10.5 8.5 - 10.5 mg/dL LAB CHEMISTRY METHOD 02/02/2025 8:[address] [facility] Blood Venous blood specimen / Unknown Venipuncture / Unknown 02/02/2025 8:10 PM EDT 02/02/2025 8:28 PM EDT us Bo Espino MD LAB BLOOD ORDERABLES Elisa l Result [facility] [address] [place] [address], * XR Chest 2 Views (02/01/2025 12:07 AM EDT) Anatomical Region Laterality Modality Body Radiographic Armida ging 02/01/2025 8:43 AM EDT Impressions 02/01/2025 8:43 AM EDT Limited depth of inspiration. Otherwise, normal examination. No change since 10/16/2024. Code 37325 -------- FINAL REPORT -------- Dictated By: Judson Ibarra Dictated Date: 02/01/2025 08:43 ET Assigned Physician: Judson Ibarra Reviewed and Electronically Signed By: Judson Ibarra Signed Date: 02/01/2025 08:43 ET Workstation ID: [id number] Transcribed By: Self Edit Transcribed Date: 02/01/2025 [...] Otherwise, normal examination. No changesince 10/16/2024. Code 64957 -------- FINAL REPORT -------- Dictated By: Judson Ibarra Dictated Date: 02/01/2025 08:43 ET Assigned Physician: Judson Ibarra Reviewed and Electronically Signed By: Judson Ibarra Signed Date: 02/01/2025 08:43 ET Workstation ID: [id number] Transcribed By: Self Edit Transcribed Date: 02/01/2025 08:43 ET Karlene Kang MD IMG XR PROCEDURES Final Result * B-type natriuretic peptide (01/31/2025 11:04 PM EDT) BNP 4 <=100 pcg/mL LAB CHEMISTRY METHOD 02/01/2025 12:04 AM EDT [facility] Blood Venous blood specimen / Unknown Venipuncture / Unknown 01/31/2025 11:04 PM EDT 01/31/2025 11:27 PM EDT us Karlene Kang MD LAB BLOOD ORDERABLES Final Res ult [facility] ([facility] [address] [place] [address], from Last 3 Months Insurance [facility] [email or web address] Care Teams Glassine Machine Tender Relationship Specialty Start Date End Date Obdulia Dewitt MD [address] [place] [phone] PCP - General Internal Medicine 10/16/24
== END 2025-03-20 10:14 | disposition home or self-care (01) ==
LOC: HO.HMCC 09:50
PROVIDERS: PCP Internal Medicine; Visit Provider Internal Medicine
DX: I10 Essential (primary) hypertension (principal); E66.01 Morbid (severe) obesity due to excess calories; Z68.42 Body mass index [BMI] 45.0-49.9, adult; F33.41 Major depressive disorder, recurrent, in partial remission; F50.81 Binge eating disorder; F41.9 Anxiety disorder, unspecified; E03.8 Other specified hypothyroidism; G25.81 Restless legs syndrome; K21.9 Gastro-esophageal reflux disease without esophagitis

== ENCOUNTER → 2025-03-20 09:49 | Outpatient (BNVA) | payer OTHER, SELFPAY | PROVIDERS: PCP Internal Medicine; Visit Provider Internal Medicine | DX: I10 Essential (primary) hypertension (principal); E03.9 Hypothyroidism, unspecified; F41.0 Panic disorder [episodic paroxysmal anxiety]; F41.9 Anxiety disorder, unspecified; G43.909 Migraine, unspecified, not intractable, without status migrainosus; G25.81 Restless legs syndrome; F50.819 Binge eating disorder, unspecified; K21.9 Gastro-esophageal reflux disease without esophagitis; E66.01 Morbid (severe) obesity due to excess calories; F33.41 Major depressive disorder, recurrent, in partial remission; Z68.42 Body mass index [BMI] 45.0-49.9, adult | CPT/HCPCS: 99212 ==

== ENCOUNTER 2025-05-09 09:54 | Outpatient (AMB) | payer OTHER, SELFPAY ==
--- NOTE | 2025-05-09 10:00 | A.OFFPC_ITS ---
Vital Signs 05/09/25 10:01 Height 5 ft 2 in Weight 263 lb BMI 48.1 BP 130/78 Blood Pressure Location Rt brachial Position Sitting Pulse 93 Pulse Source Pulse Oximeter Pulse Oximetry (%) 98 Intake Visit Reasons: 7 weeks f/up Allergies oxycodone (OXYCODONE) Allergy (Intermediate, Verified 05/09/25 10:01) RASH, hives phentermine (From Fastin (phentermine)) Adverse Reaction (Severe, Verified 05/09/25 10:01) Chest Pain prednisone Adverse Reaction (Intermediate, Verified 05/09/25 10:01) Anxiety Medication List - Last Reconciled 05/09/25 by Obdulia Dewitt MD blood pressure kit-extra large As directed chlorhexidine gluconate 4% (Hibiclens) 1 appl topical TID PRN 2 doses cholestyramine (with sugar) 4 gram 4 grams PO DAILY 30 days ferrous sulfate 325 mg PO BID 90 days hydroxyzine HCl 25 mg PO BEDTIME 90 days ketoconazole 2% 1 appl topical 2XW 30 days levothyroxine 200 mcg PO DAILY lorazepam 0.5 mg PO .qd PRN 30 days metoprolol succinate ER 25 mg PO DAILY 90 days omeprazole 20 mg PO DAILY riboflavin (vitamin B2) 400 mg PO DAILY 30 days sennosides-docusate sodium 8.6-50 mg (Senna Plus) 2 tab-caps (2 x 8.6-50 mg) PO BEDTIME PRN 90 days tirzepatide (weight loss) 5 mg (0.5 mL) subcut QWEEK 90 days Tobacco use date assessed: 01/10/25 Dental Screening Dental Screen Date: 01/10/25 HPI 7 weeks f/up HPI Details History of Present Illness The patient is a 29 year old female presenting for a follow-up visit for weight management and medication management. Obesity: - The patient has been on Mounjaro 0.5 m g injections since February for weight loss. - Her weight has trended downwards from 272 lbs in February to 267 lbs in March, and to 263 lbs in May. - The patient reports she is also contro lling her diet. - She denies any side effects from the i njections, other than constipation. Constipation: - The patient reports constipation as a side effect of her weight loss injections. - She has been taking fiber brownies for this issue. - She has also tried Senokot but reports that even one tablet causes diarrhea. Tachycardia: - The patient has a history of a chronic fast heart rate. - Her current heart rate is 93 bpm, whic h is an improvement from previous readings over 100 bpm. - She takes metoprolol 25 mg for this co ndition. Hypertension: - The patient's blood pressure was measu red at 130/78 mmHg. - She is currently taking metoprolol 25 mg. Other Chronic Conditions: - The patient takes hydroxyzine 25 mg at bedtime for insomnia and anxiety. - She is on levothyroxine 200 mcg, presu mably for hypothyroidism. - She manages chronic GERD with omeprazo le 20 mg. - The patient has a pending appointment with her fixture relamper. Problem List - Obesity - Constipation - Tachycardia - Hypertension - Gastroesophageal reflux disease - Hypothyroidism - Anxiety - Insomnia Plan - The dose of Mounjaro will be increased from 0.5 mg to 7.5 mg, and a 3-month prescription will be sent. - The patient was advised to stop taking fiber brownies and will be started on MiraLAX, one capful daily with liquid, for constipation. - Continue metoprolol 25 mg for now. - A blood test will be required before t he next visit. - The patient will follow up in three mo hs, in August. Review of Systems - General: No fever no chills - Neurological: No headaches no dizziness - Ear nose throat: No sore throat no hearing difficulty no ear pain - Cardiovascular: No syncope, no chest pain, no palpitations - Gastrointestinal: No nausea vomiting or diarrhea - Endocrine: No polyuria polydipsia no heat intolerance - Genitourinary: No dysuria , no blood in urine Physical Exam General: No acute distress HEENT: No acute findings Neck: Supple Respiratory system: Able to talk in full sentences, no audible wheeze Cardiovascular: S1-S2 regular in rate and rhythm, heart rate 93, blood pressure 130/78 Gastrointestinal: Constipation, occasional diarrhea with Senokot Extremities: No new findings SEAMING INSPECTOR: Alert awake oriented x3 motor intact Skin: Normal turgor [facility] Medical History Iron deficiency anemia Low hemoglobin Pelvic pain Hospital discharge follow-up Surgical History Hx of section Hx laparoscopic cholecystectomy Family History Father Mental health disorder Mother Asthma Mental health disorder Maternal Grandmother Breast cancer Family/Other Colon cancer Brother Asthma Social History Household Members: None Housing: Apartment Alcohol intake: current Alcohol intake frequency: a few times a month Patient Tobacco Use Status: Never used Tobacco e-Cigarette/Vaping Use: Never Used service: No Current occupational status: unemployed Cognitive needs: No Hearing needs: No Vision needs: Yes Questionnaire Thrive Questionnaire Date Thrive assessed: 01/10/25 I am a: Patient What is your living situation today?: I have a steady place to live Within the past 12 months, did the food you bought not last and you didn't have the money to get more?: Never true Within the past 12 months, did you worry whether your food would run out before you got money to buy more?: Never true Do you have trouble paying for medicines?: No Do you have trouble getting transportation to medical appointments?: Yes Do you have trouble paying your heating and electricity bill?: No Do you have trouble taking care of your child, family member or friend?: No Do you have trouble with day-to-day activities such as bathing, preparing meals, shopping, managing finances, etc.?: No Are you currently unemployed and looking for a job?: Yes Are you interested in more education?: Yes Currently or been in a relationship where the following occur: No concerns reported THRIVE Score: 1 AUDIT C Alcohol Use Questionnaire (AUDIT-C) 2. How many drinks containing alcohol do you have on a typical day when you are drinking?: 1 or 2 3. How often do you have six or more drinks on one occasion?: Never Total Score: 0 DG-7 AMB Questionnaire DG-7 Date DG - 7 assessed: 02/14/25 Source: Developed by Drs. Christiano Fairbanks, Veronica Chow, Heraclio Palencia and colleagues, with an educational onel from [employer]. Physical exam (Primary Care) Vital Signs: Last Vital Signs Pulse 93 05/09/25 10:01 BP 130/78 05/09/25 10:01 Pulse Ox 98 11/05/25 10:01 BMI result Body Mass Index 48.1 Tobacco/Smoking Status: Tobacco use Status Tobacco use date assessed 01/10/25 05/09/25 10:05 Patient Tobacco Use Status Never used Tobacco 05/09/25 10:05 e-Cigarette/Vaping Use Never Used 05/09/25 10:05 Thrive Assessment: Date of Thrive Assessment Date Thrive assessed 01/10/25 05/09/25 10:05 Currently or been in a relationship where the following occur: No concerns reported Coding Level of Care Code Est Pt Level 3 (03134) Complex EM visit Add On G2211 Diagnoses Morbid obesity due to excess calories E66.01 Binge-eating disorder, moderate F50.81 Hypertension, essential I10 Assessment & Plan Assessment & Plan (1) Morbid obesity due to excess calories: Code(s): E66.01 - Morbid (severe) obesity due to excess calories Category: Medical (2) Binge-eating disorder, moderate: Code(s): F50.81 - Binge eating disorder Category: Medical (3) Hypertension, essential: Code(s): I10 - Essential (primary) hypertension Category: Medical Plan Obesity: - The patient has been on Mounjaro 0.5 mg injections since February for weight loss. - Her weight has trended downwards from 272 lbs in February to 267 lbs in March, and to 263 lbs in May. - The patient reports she is also controlling her diet. - She denies any side effects from the injections, other than constipation. Constipation: - The patient reports constipation as a side effect of her weight loss inj ections. - She has been taking fiber brownies for this issue. - She has also tried Senokot but reports that even one tablet causes diarrhea. Tachycardia: - The patient has a history of a chronic fast heart rate. - Her current heart rate is 93 bpm, which is an improvement from previous readings over 100 bpm. - She takes metoprolol 25 mg for this condition. Hypertension: - The patient's blood pressure was measured at 130/78 mmHg. - She is currently taking metoprolol 25 mg. Other Chronic Conditions: - The patient takes hydroxyzine 25 mg at bedtime for insomnia and anxiety. - She is on levothyroxine 200 mcg, presumably for hypothyroidism. - She manages chronic GERD with omeprazole 20 mg. - The patient has a pending appointment with her fixture relamper. Problem List - Obesity - Constipation - Tachycardia - Hypertension - Gastroesophageal reflux disease - Hypothyroidism - Anxiety - Insomnia Plan - The dose of Mounjaro will be increased from 0.5 mg to 7.5 mg, and a 3-month prescription will be sent. - The patient was advised to stop taking fiber brownies and will be started on MiraLAX, one capful daily with liquid, for constipation. - Continue metoprolol 25 mg for now. - A blood test will be required before the next visit. - The patient will follow up in three months, in August. Orders: Orders Amylase Today E66.01 - Morbid (severe) obesity due to excess calories, F50.81 - Binge eating disorder, I10 - Essential (primary) hypertension Comprehensive Met. Panel Today E66.01 - Morbid (severe) obesity due to excess calories, F50.81 - Binge eating disorder, I10 - Essential (primary) hypertension Lipase Today E66.01 - Morbid (severe) obesity due to excess calories, F50.81 - Binge eating disorder, I10 - Essential (primary) hypertension Complete Blood Count Auto Diff Today E66.01 - Morbid (severe) obesity due to excess calories, F50.81 - Binge eating disorder, I10 - Essential (primary) hypertension TSH reflex Free T4 Today E66.01 - Morbid (severe) obesity due to excess calories, F50.81 - Binge eating disorder, I10 - Essential (primary) hypertension LDL Cholesterol Direct Today E66.01 - Morbid (severe) obesity due to excess ca lories, F50.81 - Binge eating disorder, I10 - Essential (primary) hypertension Medications: New polyethylene glycol 3350 (Miralax) 17 grams PO DAILY 1,530 grams 0RF 90 days Changed From tirzepatide (weight loss) for 4 weeks 5 mg (0.5 mL) subcut QWEEK 90 days 6.5 mL 0RF E66.01 - Morbid (severe) obesity due to excess calories, I10 - Essential (primary) hypertension To tirzepatide (weight loss) for 4 weeks 7.5 mg (0.5 mL) subcut QWEEK 6.5 mL 0RF 90 days E66.01 - Morbid (severe) obesity due to excess calories, I10 - Essential (primary) hypertension
[2025-05-09 10:01] VITALS: BP 130/78; PULSE 93; O2SAT 98; BMI 48.1
--- OUTSIDE RECORDS SUMMARY | 2025-05-09 11:20 | XMS_ITS | Clinical Summary ---
Author Organization [facility] [address] [place] [address] [place] [phone] Phone Care Team Providers Care Try Out Person Name Role Phone Obdulia Dewitt MD Primary Care Provider Allergies Active Allergy Reactions Criticality Noted Date [...] Active Active Problems No known active problems Surgical History Surgery Date Site/Laterality Comments SECTION [...] 2013 Cervical Cancer Screening: Pap Smear 2015 HPV Vaccines (1 - 3-dose SCDM series) 2021 Depression Screening 07/05/2024 Cholesterol Screening (Lipid Panel) 07/07/2024 HIV Screening 07/07/2024 Hepatitis C Screening 07/07/2024 Social Influencers of Health Screening 07/07/2024 COVID-19 Vaccine ( - season) 2025 Influenza Vaccine (#1) 2025 04/07/2018 Hypertension/CHF/CAD Annual BMP Blood Test 02/04/2026 02/04/2025, 02/02/2025, 01/31/2025, Additional history exists DTaP,Tdap,and Td Vaccines (2 - Tdap) 08/29/2028 08/29/2018 RSV Immunization Adult Patients (1 - 1-dose 75+ series) 2069 HIB Vaccines Aged Out No longer eligi [...] Procedure Name Priority Date/Time Associated Diagnosis Comments COMPREHENSIVE METABOLIC PANEL STAT 02/04/2025 8:06 PM EDT from Last 3 Months or Most Recently Relevant to Health Maintenance Results * (ABNORMAL) Comprehensive Metabolic Panel (CMP) (02/04/2025 8:06 PM EDT) Sodium 138 133 - 145 mmol/L LAB CHEMISTRY METHOD 02/04/2025 8:58 PM [facility] Potassium 3.5 3.5 - 5.5 mmol/L LAB CHEMISTRY METHOD 02/04/2025 8:58 PM [facility] Chloride 105 96 - 110 mmol/L LAB CHEMISTRY METHOD 02/04/2025 8:58 PM [facility] CO2 21 21 - 32 mmol/L LAB CHEMISTRY METHOD 02/04/2025 8:58 PM [facility] Anion Gap 12(H) 3 - 11 LAB CHEMISTRY METHOD 02/04/2025 8:58 PM [facility] Glucose 88 70 - 100 mg/dL LAB CHEMISTRY METHOD 02/04/2025 8:58 PM [facility] BUN 11 5 - 25 mg/dL LAB CHEMISTRY METHOD 02/04/2025 8:58 PM [facility] Creatinine 0.76 0.50 - 1.10 mg/dL LAB CHEMISTRY METHOD 02/04/2025 8:58 PM [facility] eGFR 108 >=60 mL/min/1. 73m2 LAB CHEMISTRY METHOD 02/04/2025 8:58 PM EDT [facility] Comment:Calculation based on the Chronic Kidney Disease Epidemiology Collaboration (CKD-EPI) equation refit without adjustment for race. BUN/Creatinine Ratio 14.5 LAB CHEMISTRY METHOD 02/04/2025 8:58 PM EDT [facility] Calcium 10.0 8.5 - 10.5 mg/dL LAB CHEMISTRY METHOD 02/04/2025 8:58 PM EDT [facility] AST (SGOT) 23 10 - 42 unit/L LAB CHEMISTRY METHOD 02/04/2025 8:58 PM [facility] ALT (SGPT) 34 10 - 60 unit/L LAB CHEMISTRY METHOD 02/04/2025 8:58 PM [facility] Alkaline Phosphatase 74 42 - 121 unit/L LAB CHEMISTRY METHOD 02/04/2025 8:58 PM EDT [facility] Total Protein 7.7 6.0 - 8.0 g/dL LAB CHEMISTRY METHOD 02/04/2025 8:58 PM T [facility] Albumin 4.3 3.2 - 5.0 g/dL LAB CHEMISTRY METHOD 02/04/2025 8:58 PM [facility] Total Bilirubin 0.3 0.0 - 1.4 mg/dL LAB CHEMISTRY METHOD 02/04/2025 8:58 PM T [facility] Blood Venous blood specimen / Unknown Venipuncture / Unknown 02/04/2025 8:06 PM EDT 02/04/2025 8:16 PM EDT [facility] LAB BLOOD ORDERABLES Fin al Result [facility] [address] [place] [address], from Last 3 Months or Most Recently Relevant to Health Maintenance Insurance Care Teams Try Out Person Relationship Specialty Start Date End Date Obdulia Dewitt MD [address] [place] [phone] PCP - General Internal Medicine 10/16/24
== END 2025-05-09 11:11 | disposition home or self-care (01) ==
LOC: HO.HMCC 09:55
PROVIDERS: PCP Internal Medicine; Visit Provider Internal Medicine
DX: F50.819 Binge eating disorder, unspecified (principal); E66.01 Morbid (severe) obesity due to excess calories; I10 Essential (primary) hypertension; Z68.42 Body mass index [BMI] 45.0-49.9, adult

== ENCOUNTER → 2025-05-09 09:54 | Outpatient (BNVA) | payer OTHER, SELFPAY | PROVIDERS: PCP Internal Medicine; Visit Provider Internal Medicine | DX: I10 Essential (primary) hypertension (principal); K59.00 Constipation, unspecified; R00.0 Tachycardia, unspecified; E66.01 Morbid (severe) obesity due to excess calories; F50.811 Binge eating disorder, moderate; Z68.42 Body mass index [BMI] 45.0-49.9, adult | CPT/HCPCS: 99212 ==